=== PATIENT | female | born 1950 | race Caucasian/White ===

== ENCOUNTER 2018-01-21 10:06 | Outpatient (CLI) | payer MEDICARE, OTHER, SELFPAY ==
[2018-01-21] VITALS (8 sets, daily range): BP systolic 135–167; BP diastolic 65–89; PULSE 73–94; RESP 14–18; TEMP 36.2; O2SAT 98–100
--- NOTE | 2018-01-21 10:08 | DI.RAD.S_ITS ---
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 Appropriate location(s) of the needle tip(s) was confirmed by injection of iodinated contrast. IMPRESSION: Documentation of needle injection at the L5-S1 level. Dictated by: Sergio Key M.D. on 01/21/2018 at 16:02 Approved by: Sergio Key M.D. on 01/21/2018 at 16:03
--- NOTE | 2018-01-21 11:07 | P.PCN_ITS ---
Procedures Date/Time Date of procedure: 01/21/18 Time of procedure: 11:50 General Procedure description: PREOP DIAGNOSIS 1. FORMAINAL STENOSIS WITH LE SYMPTOMS POST OP DIAGNOSIS 1. FORMAINAL STENOSIS WITH LE SYMPTOMS PROCEDURES 1. FLUOROSCOPICALLY GUIDED CONTRAST CONTROLLED TRANSFORAMINAL EPIDURAL STEROID INJECTION - Left L5/S1 PHYSICIAN: Collin Parmar DO INDICATIONS: Hayde is referred by Dr. Bishop for treatment of Foraminal Stenosis with Right LE Symptoms FINDINGS Foraminal Nerve Root Compression secondary to disc disease and facet hypertrophy DESCRIPTION OF PROCEDURE: Following denial of allergy and review of potential side effects and complications, including, but not necessarily limited to, infection, allergic reaction, local tissue breakdown, stroke, temporary or permanent nerve injury, paralysis, and possible , the patient indicated that the patient understood and agreed to proceed. An informed consent document was signed by the patient, witnessed by a nurse, and placed in the patient's chart. Additionally, other treatment options including medications, modalities, and physical therapy were reviewed with the patient. Per the patient request, IV conscious sedation was administered via 3mg of Versed to patient comfort. The patient's vital signs were monitored throughout the procedure by both the nurse and the physician without significant fluctuation. The patient remained conversant throughout the procedure. In the prone position following sterile prep and drape of the lumbar region, the Left L5/S1 posterior neuroforamen was identified fluoroscopically. The skin was anesthetized via a 25-gauge 1.5-inch needle with 1% lidocaine solution. At this point, a 25-gauge 3.5-inch spinal needle was atraumatically introduced and advanced under fluoroscopic guidance through the posterior Left L5/S1 neuroforamen to approximately the anterior aspect of the canal. Depth was confirmed on lateral view. Following negative aspiration, injection of approximately 1.5 cc of Isovue 200 under live fluoroscopy in the AP view confirmed excellent flow along the nerve root, into the epidural space without vascular or intrathecal uptake observed Radiological data, including multiple fluoroscopic views of the lumbosacral spine, reveal a spinal needle at the Left L5/S1 posterior neuroforamen. Subsequent views show flow of contrast material flowing superiorly and inferiorly along the nerve root confirming epidural flow. Subsequently, a test dose of 1.5 cc of 1% lidocaine solution was administered and patient was observed for two minutes for signs or symptoms of complications , including abdominal pain, shortness of breath, bilateral upper or lower extremity weakness, nausea and vomiting, prior to steroid injection. At this point, a total of 3 cc or 20 mg of dexamethasone and 80mg Depo Medrol was injected without incident. The patient was then transferred to the recovery area where they were observed for an appropriate time after the injection. The patient reported a VAS score of 7 prior to the procedure and a post-procedure VAS of 0. Total Fluoroscopy Time: 20.9 seconds Total Conscious Sedation Time: 24min POST OP INSTRUCTIONS The patient was provided a Pain Log to continue to record their response to the target-specific procedure prior to follow-up visit with their referring physician. Additionally, specific post-injection care instructions and a contact number to our office were provided if concerns arise regarding possible complications associated with the procedure are suspected. Collin Parmar DO Complications: none
[2018-01-21] MEDS: IOPAMIDOL 15 ML VIAL 3 ML INJ (11:45)
[2018-01-21] MEDS: methylPREDNISolone acetate 80 MG/ML VIAL INJ (11:45)
[2018-01-21] MEDS: BUPIVACAINE 0.5% (PF) 30 ML VIAL INJ (11:45)
[2018-01-21] MEDS: MIDAZOLAM 5 MG/5 ML VIAL IV (11:45)
[2018-01-21] MEDS: DEXAMETHASONE 10 MG/ML VIAL 20 MG INJ (11:45)
== END 2018-01-21 12:00 ==
LOC: RAD 10:08
PROVIDERS: PCP Family Medicine; Visit Provider Physical Medicine & Rehabilitation
DX: M54.16 Radiculopathy, lumbar region (principal); M48.07 Spinal stenosis, lumbosacral region; M99.73 Connective tissue and disc stenosis of intervertebral foramina of lumbar region
CPT/HCPCS: 64483; 99152; J1040; J1100; J2250

== ENCOUNTER 2018-05-27 07:56 | Outpatient (CLI) | payer MEDICARE, OTHER, SELFPAY ==
[2018-05-27] VITALS (9 sets, daily range): BP systolic 131–158; BP diastolic 56–75; PULSE 68–77; RESP 14–20; TEMP 36.1; O2SAT 97–100
--- NOTE | 2018-05-27 08:29 | DI.RAD.S_ITS ---
PROCEDURE: PAIN L INTERLAMINAR/CAUDAL INJ INDICATIONS: SPINAL STENOSIS FINDINGS: Fluoroscopic spot filming was performed to verify placement of spinal needles at the interlaminar L2-L3 level(s), as labeled on the films. Appropriate location(s) of the needle tip(s) was confirmed by injection of iodinated contrast. IMPRESSION: Successful interlaminar needle tip localization for epidural steroid injection, left interlaminar margin. Dictated by: Pop Duval M.D. on 05/27/2018 at 15:36 Approved by: Pop Duval M.D. on 05/27/2018 at 15:37
[2018-05-27] MEDS: MIDAZOLAM 5 MG/5 ML VIAL IV (09:28)
[2018-05-27] MEDS: BUPIVACAINE 0.25% (PF) VIAL 2 ML INJ (09:34)
[2018-05-27] MEDS: methylPREDNISolone acetate 80 MG/ML VIAL INJ (09:34)
[2018-05-27] MEDS: DEXAMETHASONE 10 MG/ML VIAL 20 MG INJ (09:34)
[2018-05-27] MEDS: IOPAMIDOL 15 ML VIAL 3 ML INJ (09:34)
--- NOTE | 2018-05-27 09:40 | P.PCN_ITS ---
Procedures Date/Time Date of procedure: 05/27/18 Time of procedure: 09:39 General Procedure description: POST OP DIAGNOSIS 1. HNP WITH RADICULAR FEATURES, 2. MULTILEVEL CENTRAL STENOSIS, PROCEDURES 1. FLUORSCOPICALLY GUIDED CONTRAST CONTROLLED INTERLAMINAR EPIDURAL STEROID INJECTION - L2/3 PHYSICIAN: Collin Parmar, INDICATIONS Hayde is referred by Dr. Bishop for treatment of Bilateral Foraminal Stenosis L>R LE symptoms. FINDINGS Multilevel Central Spinal Stenosis with Nerve Root Compression DESCRIPTION OF PROCEDURE Fluoroscopically guided, contrast-controlled L2/3 translaminar epidural steroid injection. Following denial of allergy and review of potential side effects and complications, including, but not necessarily limited to, infection, allergic reaction, local tissue breakdown, temporary as well as permanent nerve injury, paralysis, stroke and possible , the patient indicated that the patient understood and agreed to proceed. An informed consent document was signed by the patient, witnessed by a nurse, and placed in the patient's chart. Additionally, other treatment options including modalities, medications, and physical therapy were reviewed with the patient. After review of previous anaesthesic history and IV conscious sedation the patient was deemed safe to proceed with todays procedure with IV conscious sedation as ASA class II designation. Safety time-out was performed to confirm patient ID, procedure to be performed and site of procedure. IV sedation was accomplished with a combination of 2mg of Versed was administered by the RN after DO order, titrated to patient comfort during the course of the procedure while the patient remained responsive to all verbal commands. In the prone position, following sterile prep and drape of the lumbar region, the L2/3 translaminar space was identified fluoroscopically. The skin was anesthetized via a 25-gauge, 1.5-inch needle with 1% lidocaine solution. At this point, a 22-gauge short bevel spinal needle was atraumatically introduced and advanced under fluoroscopic guidance into the region of the L2/3 translaminar space. Depth was confirmed on lateral view. Radiological data, including multiple fluoroscopic views of the lumbar spine, reveal a spinal needle at the L2/3 translaminar space. Lateral views then show placement of the needle in the epidural space. Subsequent views show contrast material flowing superiorly and inferiorly in the epidural space. No vascular or intrathecal uptake is observed. At this point, using loss of resistance technique with saline and air, the epidural space was entered. This was confirmed following negative aspiration with injection of approximately 1.5 cc of Isovue 200, showing excellent epidural flow without vascular or intrathecal uptake. At this point, 1 cc of 1 % lidocaine solution combined with 3 cc or 20 mg of dexamethasone and 80mg Depo medrol was injected without incident. The patient tolerated the procedure well without signs or symptoms of complications prior to transfer to the recovery area continued monitoring without incident. The patient was then transferred to the recovery area where they were observed for an appropriate period of time after the injection. The patient reported a VAS score of 6 prior to the procedure and a post-procedure VAS of 0. Total Fluoroscopy Time: 11.8 seconds Total Conscious Sedation Time: 24min POST OP INSTRUCTIONS The patient was provided a Pain Log to continue to record their response to the target-specific procedure prior to follow-up visit with their referring physician. Additionally, specific post-injection care instructions and a contact number to our office were provided if concerns arise regarding possible complications associated with the procedure are suspected. Collin Parmar DO Complications: none
== END 2018-05-27 10:24 ==
LOC: RAD 07:58
PROVIDERS: PCP Family Medicine; Visit Provider Physical Medicine & Rehabilitation
DX: M48.062 Spinal stenosis, lumbar region with neurogenic claudication (principal); M51.16 Intervertebral disc disorders with radiculopathy, lumbar region
CPT/HCPCS: 62323; 99152; J1040; J1100; J2250

== ENCOUNTER 2018-09-30 08:02 | Outpatient (CLI) | payer MEDICARE, OTHER, SELFPAY ==
[2018-09-30] VITALS (9 sets, daily range): BP systolic 130–163; BP diastolic 77–94; PULSE 74–83; RESP 16; TEMP 36.6; O2SAT 97–100
--- NOTE | 2018-09-30 08:04 | DI.RAD.S_ITS ---
PROCEDURE: PAIN L INTERLAMINAR/CAUDAL INJ INDICATIONS: SPINAL STENOSIS FINDINGS: Fluoroscopic spot filming was performed to verify placement of spinal needles at the L2-3 interlaminar level(s), as labeled on the films. Appropriate location(s) of the needle tip(s) was confirmed by injection of iodinated contrast. IMPRESSION: Successful L2-3 interlaminar needle tip localization for midline dorsal epidural steroid injection. Dictated by: Pop Duval M.D. on 09/30/2018 at 10:56 Approved by: Pop Duval M.D. on 09/30/2018 at 10:56
[2018-09-30] MEDS: MIDAZOLAM 5 MG/5 ML VIAL IV (09:13)
[2018-09-30] MEDS: BUPIVACAINE 0.25% (PF) VIAL 2 ML INJ (09:18)
[2018-09-30] MEDS: IOPAMIDOL 15 ML VIAL 3 ML INJ (09:19)
[2018-09-30] MEDS: DEXAMETHASONE 10 MG/ML VIAL 20 MG INJ (09:19)
[2018-09-30] MEDS: methylPREDNISolone acetate 80 MG/ML VIAL INJ (09:19)
--- NOTE | 2018-09-30 09:21 | PC.NURSE ---
assisting pt off table and transporting pt to post proc area in stable cond
--- NOTE | 2018-09-30 09:25 | PM.PROC.1 ---
Procedures Date/Time Date of procedure: 09/30/18 Time of procedure: 09:25 General Procedure description: POST OP DIAGNOSIS 1. HNP WITH RADICULAR FEATURES, 2. MULTILEVEL CENTRAL STENOSIS, PROCEDURES 1. FLUORSCOPICALLY GUIDED CONTRAST CONTROLLED INTERLAMINAR EPIDURAL STEROID INJECTION - L2/3 PHYSICIAN: Collin Parmar, INDICATIONS Hayde is referred by for treatment of Bilateral Foraminal Stenosis L>R LE symptoms. FINDINGS Multilevel Central Spinal Stenosis with Nerve Root Compression DESCRIPTION OF PROCEDURE Fluoroscopically guided, contrast-controlled L2/3 translaminar epidural steroid injection. Following denial of allergy and review of potential side effects and complications, including, but not necessarily limited to, infection, allergic reaction, local tissue breakdown, temporary as well as permanent nerve injury, paralysis, stroke and possible , the patient indicated that the patient understood and agreed to proceed. An informed consent document was signed by the patient, witnessed by a nurse, and placed in the patient's chart. Additionally, other treatment options including modalities, medications, and physical therapy were reviewed with the patient. After review of previous anaesthesic history and IV conscious sedation the patient was deemed safe to proceed with todays procedure with IV conscious sedation as ASA class II designation. Safety time-out was performed to confirm patient ID, procedure to be performed and site of procedure. IV sedation was accomplished with a combination of 3mg of Versed was administered by the RN after DO order, titrated to patient comfort during the course of the procedure while the patient remained responsive to all verbal commands. In the prone position, following sterile prep and drape of the lumbar region,the L2/3 translaminar space was identified fluoroscopically. The skin was anesthetized via a 25-gauge, 1.5-inch needle with 1% lidocaine solution. At this point, a 22-gauge short bevel spinal needle was atraumatically introduced and advanced under fluoroscopic guidance into the region of the L2/3 translaminar space. Depth was confirmed on lateral view. Radiological data, including multiple fluoroscopic views of the lumbar spine, reveal a spinal needle at the L2/3 translaminar space. Lateral views then show placement of the needle in the epidural space. Subsequent views show contrast material flowing superiorly and inferiorly in the epidural space. No vascular or intrathecal uptake is observed. At this point, using loss of resistance technique with saline and air, the epidural space was entered. This was confirmed following negative aspiration with injection of approximately 1.5 cc of Isovue 200, showing excellent epidural flow without vascular or intrathecal uptake. At this point, 1 cc of 1% lidocaine solution combined with 3 cc or 20 mg of dexamethasone and 80mg Depo medrol was injected without incident. The patient tolerated the procedure well without signs or symptoms of complications prior to transfer to the recovery area continued monitoring without incident. The patient was then transferred to the recovery area where they were observed for an appropriate period of time after the injection. The patient reported a VAS score of 6 prior to the procedure and a post-procedure VAS of 0. Total Fluoroscopy Time: 11.8 seconds Total Conscious Sedation Time: 24min POST OP INSTRUCTIONS The patient was provided a Pain Log to continue to record their response to the target-specific procedure prior to follow-up visit with their referring physician. Additionally, specific post-injection care instructions and a contact number to our office were provided if concerns arise regarding possible complications associated with the procedure are suspected. Collin Parmar DO Complications: none
--- NOTE | 2018-09-30 09:43 | PC.NURSE ---
pt tolerating drinking water, and coffee.
== END 2018-09-30 10:23 | disposition home or self-care (01) ==
LOC: RAD 08:03
PROVIDERS: PCP Family Medicine; Visit Provider Physical Medicine & Rehabilitation
DX: M51.16 Intervertebral disc disorders with radiculopathy, lumbar region (principal); M48.061 Spinal stenosis, lumbar region without neurogenic claudication
CPT/HCPCS: 62323; 99152; J1040; J1100; J2250

== ENCOUNTER → 2018-10-16 11:45 | Outpatient (CLI) | payer MEDICARE, OTHER, SELFPAY ==
--- NOTE | 2018-10-16 11:49 | DI.RAD.S_ITS ---
PROCEDURE: XR KNEE RT 3V INDICATIONS: Right knee DJD TECHNIQUE: 3 views of the knee were acquired. COMPARISON: None. FINDINGS: Bones: No fractures or dislocations. No suspicious bony lesions. There is moderate medial patellofemoral compartment narrowing. Periarticular osteophytes are present without visualized erosions. Soft tissues: Moderate joint effusion. No suspicious soft tissue calcifications. IMPRESSION: Medial and patellofemoral narrowing most consistent with degenerative osteoarthritic change. Dictated by: Kymberly Aguilera M.D. on 10/16/2018 at 15:10 Approved by: Kymberly Aguilera M.D. on 10/16/2018 at 15:11
== END ==
PROVIDERS: PCP Family Medicine; Visit Provider Physical Medicine & Rehabilitation
DX: M17.11 Unilateral primary osteoarthritis, right knee (principal); M12.812 Other specific arthropathies, not elsewhere classified, left shoulder; M54.17 Radiculopathy, lumbosacral region; M48.062 Spinal stenosis, lumbar region with neurogenic claudication
CPT/HCPCS: 20611; 73562; 99214; J0702

== ENCOUNTER 2018-12-01 10:30 | Emergency (ER) | payer MEDICARE, OTHER, SELFPAY ==
[2018-12-01] VITALS (8 sets, daily range): BP systolic 128–180; BP diastolic 45–90; PULSE 83–94; RESP 16–26; TEMP 36.5; O2SAT 97–100; BMI 30.4
--- NOTE | 2018-12-01 10:46 | DI.RAD.S_ITS ---
PROCEDURE: XR CHEST 1V INDICATIONS: chest pain TECHNIQUE: One view of the chest was acquired. COMPARISON: [facility], , CHEST 1 VIEW, 10/19/2017, 8:44. FINDINGS: Surgical changes and devices: None. Lungs and pleura: Lungs are clear. No pleural effusions or pneumothorax. The aeration of the lungs is similar to the prior study. Mediastinum: Mediastinal contours appear normal. Heart size is enlarged. There is aortic atherosclerosis. Bones and chest wall: No suspicious bony lesions. Overlying soft tissues appear unremarkable. IMPRESSION: Cardiomegaly without overt heart failure or definite pneumonia. Dictated by: Miguel Jones M.D. on 12/01/2018 at 10:37 Approved by: Miguel Jones M.D. on 12/01/2018 at 10:39
[2018-12-01 10:51] LABS: Add Manual Diff / Slide Review NO; Basophils Absolute Auto 100 /uL (0-100); Eosinophils Absolute Auto 300 /uL (0-450); Eosinophils Percent Auto 2.4 % (2-4); Hematocrit 37.7 % (36-46); Lymphocytes Absolute Auto 3800 /uL (1100-4500); Lymphocytes Percent Auto 28.2 % (25-40); Mean Corpuscular HGB Conc 34.6 % (30-36); Mean Corpuscular Volume 86.9 fL (80-100); Monocytes Absolute Auto 700 /uL (0-900); Monocytes Percent Auto 5.1 % (3-14); Neutrophils Absolute Auto 8500 /uL (1500-7000); Neutrophils Percent Auto 63.3 % (50-75); Platelet Count 315 X10^3/uL (150-400); Red Blood Cell Count 4.34 X10^6/uL (4.0-5.2); Red Cell Distribution Width 13.2 % (11.6-14.8); White Blood Cell Count 13.5 X10^3/uL (4.5-11.0)
[2018-12-01 11:00] LABS: Prothrombin Time 11.5 SECONDS (10.1-12.7)
[2018-12-01 11:03] LABS: PTT Partial Thromboplastin Tim 27 SECONDS (26.4-36.2)
[2018-12-01 11:09] LABS: Alanine Aminotransferase 21 IU/L (9-52); Albumin 4.1 g/dL (3.5-5.0); Albumin Globulin Ratio 1.3 (1.0-2.8); Alkaline Phosphatase 84 U/L (38-126); Aspartate Aminotransferase 16 IU/L (14-36); BUN Creatinine Ratio 24.4 (6-22); Bilirubin Total 0.5 mg/dL (0.2-1.3); Blood Urea Nitrogen 22 mg/dL (7-17); Calcium 9.9 mg/dL (8.4-10.2); Carbon Dioxide 31 mmol/L (22-32); Chloride 99 mmol/L (98-107); Creatine Kinase 33 U/L (30-135); Estimated Glomerular Filt Rate > 60.0 mL/min (>60); Globulin 3.2 g/dL (1.7-4.1); Glucose 108 mg/dL (80-110); HEMOLYSIS < 15 (0-50); Lipase 87 U/L (23-300); Potassium 4.3 mmol/L (3.4-5.1); Sodium 139 mmol/L (137-145); Total Protein 7.3 g/dL (6.3-8.2)
[2018-12-01 11:21] LABS: Troponin I < 0.012 ng/mL (0.01-0.034)
--- NOTE | 2018-12-01 11:25 | PC.NURSE ---
Addendum entered by Poonam Shah R.N. 12/01/18 11:49: Patient jaw and shoulder pain getting worse. Provider notified. No new orders. Original Note: Patient had brief episode of rapid atrial flutter, rate of 165 bpm. Denies symptoms at the time of this episode. States has had flutter in the past.
--- NOTE | 2018-12-01 11:41 | ED.CHESTPAIN ---
HPI - Chest Pain General Chief Complaint: Chest Pain Stated Complaint: CHEST PAIN Time Seen by Provider: 12/01/18 10:46 Source: patient Mode of arrival: ambulatory Limitations: no limitations History of Present Illness HPI narrative: Patient is a 67-year-old female here for evaluation of chest pressure. She states that started approximately 1000 hours this morning. Was a fairly sudden onset but has been consistent since then. She states she feels like she cannot take a big deep breath. Has recently completed a course of antibiotics given to her by her primary doctor for bronchitis. She also states that her ?asthma? has been picking up. She did do a nebulizer this morning before the chest discomfort started. No prior cardiac issues. Does have a history of high blood pressure. Related Data Home Medications Medication Instructions Recorded Confirmed potassium 1 dose PO DAILY 02/05/18 12/01/18 magnesium 30 mg tablet 30 mg PO DAILY 04/24/18 12/01/18 omega-3 fatty acids 1,000 mg 1,000 mg PO DAILY 04/24/18 12/01/18 capsule ascorbic acid (vitamin C) 500 mg 500 mg PO DAILY cap 06/11/18 12/01/18 capsule cholecalciferol (vitamin D3) 1,000 1,000 unit PO DAILY 06/11/18 12/01/18 unit capsule CoQ-10 1 cap PO DAILY 12/01/18 12/01/18 albuterol sulfate 3 ml INHALATION PRN PRN 12/01/18 12/01/18 albuterol sulfate [ProAir HFA] 2 puff INHALATION Q4H PRN 12/01/18 12/01/18 azithromycin 250 mg PO DAILYX4 12/01/18 12/01/18 cyclosporine [Restasis] 1 drp OPHTHALMIC (EYE) BID 12/01/18 12/01/18 fluticasone propionate [Flovent 2 puff INHALATION Q12H 12/01/18 12/01/18 HFA] triamterene-hydrochlorothiazid 1 tab PO DAILY 12/01/18 12/01/18 Previous Rx's Medication Instructions Recorded meloxicam 15 mg tablet 15 mg PO DAILY #90 tab 09/11/18 codeine-guaifenesin [Guaifenesin 10 ml PO Q4-6H PRN #120 ml 12/01/18 AC] Allergies Allergy/AdvReac Type Severity Reaction Status Date / Time chocolate flavor Allergy Intermediate INCREASED Verified 10/16/18 11:05 [CHOCOLATE FLAVOR] HR, HEADACHE Penicillins [PENICILLINS] Allergy Intermediate HIVES Verified 10/16/18 11:05 oxycodone [OXYCODONE] AdvReac Intermediate N/V, Verified 10/16/18 11:05 HEADACHE Review of Systems Constitutional Denies fever(s) Cardiovascular Reports chest pain, Denies rapid heart rate, Denies edema, Denies palpitations, Reports dyspnea and Denies dyspnea on exertion Respiratory Reports dyspnea, Denies dyspnea on exertion and Denies wheezing Gastrointestinal Gastrointestinal: Denies abdominal pain, Denies nausea and Denies vomiting Genitourinary Denies dysuria Musculoskeletal Denies myalgias and Denies arthralgias Integumentary/Breasts Denies rash Endocrine Denies palpitations Hematologic/Lymphatic Denies easy bleeding and Denies easy bruising Allergic/Immunologic Denies urticaria and Denies wheezing [facility] Medical History Asthma (Acute) Social History Smoking Status: Never smoker Social History Smoking Status: Never smoker Exam Initial Vital Signs Initial Vital Signs: Vital Signs Temperature 97.7 F 12/01/18 10:46 Pulse Rate 90 12/01/18 10:46 Respiratory Rate 22 12/01/18 10:46 Blood Pressure 180/88 H 12/01/18 10:46 Pulse Oximetry 100 12/01/18 10:46 Const General: cooperative, well developed, well groomed and No acute distress Orientation: alert, awake and oriented x3 HENMN Head: normal to inspection and normocephalic Resp Effort & Inspection: normal respiratory effort Auscultation: clear to auscultation bilaterally Cardio Rate: regular rate Rhythm: regular rhythm Pulses: radial pulses present GI Inspection: non-distended Palpation: soft, No firm and No tender Skin Lesions: no lesions Rashes: no rashes Neuro General: alert, awake and oriented x3 Cognition: normal cognition Speech: speech normal Extrem General: normal to inspection, capillary refill normal and No edema Psych Appearance: grossly normal and well kempt Scores HEART Score Heart Score history: Moderately Suspicious Heart Score EKG: Normal Heart Score Age: > or = 65 years old Heart Score risk factors: 1-2 risk factors Heart Score troponin: < or = to normal limit Heart Score Total: 4 PERC Score Age greater than or equal to 50 years: Yes Heart rate greater than or equal to 100 bpm: No Room Air O2 Sat less than 95%: No Unilateral leg swelling: No Recent trauma or surgery: No Hemoptysis: No Prior PE or DVT: No Hormone Use: No Total PERC Score: 1 Course Orders Ordered: ED Orders 12/01/18 10:44 EKG-12 Lead Stat 12/01/18 10:46 XR chest 1V Stat 12/01/18 10:47 Complete Blood Count AUTO DIFF Stat Comprehensive Metabolic Panel Stat Lipase Stat Partial Thromboplastin Time Stat Prothrombin Time INR Stat Troponin & CK Cardiac Panel Stat 12/01/18 11:50 B Type Natriuretic Peptide Stat D Dimer Stat 12/01/18 12:37 CT angio chest PE protocol Stat 12/01/18 13:45 Troponin I Stat Discontinued Medications Albuterol/Ipratropium (Duoneb) 3 ml INH NOW ONE Stop: 12/01/18 11:41 Last Admin: 12/01/18 11:50 Dose: 3 ml Aspirin (Aspirin Chew) 324 mg PO NOW ONE Stop: 12/01/18 11:52 Last Admin: 12/01/18 12:02 Dose: 243 mg Sodium Chloride (Normal Saline 0.9%) 1,000 mls @ 1,000 mls/hr IV BOLUS ONE Stop: 12/01/18 13:35 Last Infusion: 12/01/18 15:18 Dose: 0 mls/hr Admin: 12/01/18 12:50 Dose: 1,000 mls/hr Nitroglycerin (Nitrostat) 0.4 mg SL [id number] PRN PRN Reason: Chest Pain Last Admin: 12/01/18 12:03 Dose: 0.4 mg Vital Signs - 8 hr 12/01/18 10:46 12/01/18 11:00 12/01/18 11:30 Temperature 97.7 F Pulse Rate 90 91 H 92 H Respiratory Rate 22 18 26 H Blood Pressure 180/88 H Blood Pressure [Left Arm] 152/90 H 139/66 Pulse Oximetry 100 97 98 12/01/18 11:50 12/01/18 12:03 12/01/18 13:00 Temperature Pulse Rate 94 H 91 H 93 H Respiratory Rate 24 25 H Blood Pressure 132/45 L Blood Pressure [Left Arm] 137/65 Pulse Oximetry 100 99 12/01/18 13:30 12/01/18 14:15 Temperature Pulse Rate 83 84 Respiratory Rate 22 16 Blood Pressure Blood Pressure [Left Arm] 128/69 146/75 H Pulse Oximetry 98 100 MDM - Chest Pain Lab Data Attestation: I reviewed the patient's lab results. Result diagrams: 12/01/18 10:47 12/01/18 10:47 Lab Results 12/01/18 12/01/18 12/01/18 Range/Units 10:47 10:47 10:47 WBC 13.5 H (4.5-11.0) X10^3/uL RBC 4.34 (4.0-5.2) X10^6/uL Hgb 13.0 (12.0-16.0) g/dL Hct 37.7 (36-46) % MCV 86.9 (80-100) fL MCH 30.0 (26-34) PG MCHC 34.6 (30-36) % RDW 13.2 (11.6-14.8) % Plt Count 315 (150-400) X10^3/uL Neut % (Auto) 63.3 (50-75) % Lymph % (Auto) 28.2 (25-40) % Saline % (Auto) 5.1 (3-14) % Eos % (Auto) 2.4 (2-4) % Baso % (Auto) 1.0 (0-2) % Neut # (Auto) 8500 H (8514-5314) /uL Lymph # (Auto) 3800 (5799-6571) /uL Saline # (Auto) 700 (0-900) /uL Eos # (Auto) 300 (0-450) /uL Baso # (Auto) 100 (0-100) /uL PT 11.5 (10.1-12.7) SECONDS INR 1.0 (0.9-1.3) APTT 27 (26.4-36.2) SECONDS D-Dimer (<230) ng/mL Sodium 139 (137-145) mmol/L Potassium 4.3 (3.4-5.1) mmol/L Chloride 99 (98-107) mmol/L Carbon Dioxide 31 (22-32) mmol/L BUN 22 H (7-17) mg/dL Creatinine 0.90 (0.52-1.04) mg/dL Estimated GFR > 60.0 (>60) mL/min BUN/Creatinine Ratio 24.4 H (6-22) Glucose 108 (80-110) mg/dL Calcium 9.9 (8.4-10.2) mg/dL Total Bilirubin 0.5 (0.2-1.3) mg/dL AST 16 (14-36) IU/L ALT 21 (9-52) IU/L Alkaline Phosphatase 84 (38-126) U/L Total Creatine Kinase 33 (30-135) U/L CK-MB (CK-2) TNP CK-MB (CK-2) Rel Index TNP Troponin I < 0.012 (0.01-0.034) ng/mL B-Natriuretic Peptide (<100) Total Protein 7.3 (6.3-8.2) g/dL Albumin 4.1 (3.5-5.0) g/dL Globulin 3.2 (1.7-4.1) g/dL Albumin/Globulin Ratio 1.3 (1.0-2.8) Lipase 87 (23-300) U/L 12/01/18 12/01/18 12/01/18 Range/Units 11:50 11:50 13:45 WBC (4.5-11.0) X10^3/uL RBC (4.0-5.2) X10^6/uL Hgb (12.0-16.0) g/dL Hct (36-46) % MCV (80-100) fL MCH (26-34) PG MCHC (30-36) % RDW (11.6-14.8) % Plt Count (150-400) X10^3/uL Neut % (Auto) (50-75) % Lymph % (Auto) (25-40) % Saline % (Auto) (3-14) % Eos % (Auto) (2-4) % Baso % (Auto) (0-2) % Neut # (Auto) (5329-3320) /uL Lymph # (Auto) (5860-2120) /uL Saline # (Auto) (0-900) /uL Eos # (Auto) (0-450) /uL Baso # (Auto) (0-100) /uL PT (10.1-12.7) SECONDS INR (0.9-1.3) APTT (26.4-36.2) SECONDS D-Dimer 647 H (<230) ng/mL Sodium (137-145) mmol/L Potassium (3.4-5.1) mmol/L Chloride (98-107) mmol/L Carbon Dioxide (22-32) mmol/L BUN (7-17) mg/dL Creatinine (0.52-1.04) mg/dL Estimated GFR (>60) mL/min BUN/Creatinine Ratio (6-22) Glucose (80-110) mg/dL Calcium (8.4-10.2) mg/dL Total Bilirubin (0.2-1.3) mg/dL AST (14-36) IU/L ALT (9-52) IU/L Alkaline Phosphatase (38-126) U/L Total Creatine Kinase (30-135) U/L CK-MB (CK-2) CK-MB (CK-2) Rel Index Troponin I < 0.012 (0.01-0.034) ng/mL B-Natriuretic Peptide 136 H (<100) Total Protein (6.3-8.2) g/dL Albumin (3.5-5.0) g/dL Globulin (1.7-4.1) g/dL Albumin/Globulin Ratio (1.0-2.8) Lipase (23-300) U/L Imaging Data Chest x-ray: Radiologist's impression: [address] [address] XRay Report Signed Patient: Hayde Mensah LMR#: [id number] : 9Acct:[id number] Age/Sex: 67 / FDate of Service: 12/01/18 Loc: ED Accession Number: [id number] Procedure: XR chest 1V Ordering Provider: Aurelio Perry D.O. PROCEDURE: XR CHEST 1V INDICATIONS: chest pain TECHNIQUE: One view of the chest was acquired. COMPARISON: [facility], CHEST 1 VIEW, 10/19/2017, 8:44. FINDINGS: Surgical changes and devices: None. Lungs and pleura: Lungs are clear. No pleural effusions or pneumothorax. The aeration of the lungs is similar to the prior study. Mediastinum: Mediastinal contours appear normal. Heart size is enlarged. There is aortic atherosclerosis. Bones and chest wall: No suspicious bony lesions. Overlying soft tissues appear unremarkable. IMPRESSION: Cardiomegaly without overt heart failure or definite pneumonia. Dictated by: Miguel Jones M.D. on 12/01/2018 at 10:37 Approved by: Miguel Jones M.D. on 12/01/2018 at 10:39 CT scan - chest: Radiologist's impression: [place] [address] CT Scan Report Signed Patient: Hayde Mensah LMR#: [id number] : 9Acct:[id number] Age/Sex: 67 / FDate of Service: 12/01/18 Loc: ED Accession Number: [id number] Procedure: CT angio chest PE protocol Ordering Provider: Aurelio Perry D.O. PROCEDURE: CT ANGIO CHEST PE PROTOCOL INDICATIONS: Chest pain, shortness of breath, tachycardia TECHNIQUE: After the administration of intravenous contrast, 2 mm thick sections acquired from the pulmonary apices to the posterior costophrenic angles. 3-dimensional maximum intensity projection (MIP) coronal and sagittal reformats were then acquired through the thorax. For radiation dose reduction, the following was used: automated exposure control, adjustment of mA and/or kV according to patient size. COMPARISON: None. FINDINGS: Image quality: Excellent. Pulmonary arteries: Pulmonary arteries are normal in size, and demonstrate no intraluminal filling defects to suggest central pulmonary embolism. Lungs and pleura: Lungs are abnormal with a patchy alveolar infiltration pattern, involving the upper and lower lungs and with a nonspecific appearance but potentially a manifestation of atypical pneumonia.. No pleural effusions or pneumothorax. Central and peripheral airways are patent. Mediastinum: Heart size is normal, without pericardial effusion. No mediastinal or hilar adenopathy. Thoracic aorta is normal in caliber and enhancement. Esophagus is normal in caliber, without hiatal hernia. Bones and chest wall: No suspicious bony lesions. Ribs and thoracic spine appear intact throughout. Thyroid gland is not well-seen but appears normal where it can be visualized.. No axillary or supraclavicular adenopathy. Abdomen: Visualized upper abdominal solid organs appear normal in the early arterial phase of enhancement. IMPRESSION: Patchy generalized alveolar infiltration pattern within the lung parenchyma is most likely a manifestation of atypical pneumonia such as viral pneumonia. The appearance also could be produced by acute cardiogenic pulmonary edema, inhalation injury, or immune mediated pneumonitis. No pulmonary embolus seen. Dictated by: Pop Duval M.D. on 12/01/2018 at 13:05 ECG Data Attestation: I personally reviewed and interpreted this ECG as follows: Prior ECG tracings: not available for review Interpretation: Sinus rhythm Ventricular rate 87 Frequent PACs Normal axis Normal QRS No ST T wave changes MDM Narrative Medical decision making narrative: Patient's EKG was unremarkable. The troponin was negative x2. She does have a cough which does make her chest pain worse. She recently completed a course of antibiotics and also a course of steroids given to her by her primary doctor for treatment of ?bronchitis? she just finished the antibiotics yesterday. Has completed the steroids within the past couple days. There is no pulmonary embolism on the CT scan. CT scan is concerning for potential atypical pneumonia verses other potential infectious/inflammatory etiology. This does fit the case of the elevated white blood cell count and also the cough. We did have a long discussion regarding the CT scan findings. Informed her that radiologic studies very often lag behind any clinical condition. Informed her that since she just completed the antibiotics yesterday that the findings on the CT scan could very well be normal in this situation. We also discussed that it could be that the azithromycin that she was on did not treat her infection. After this discussion with the decision was made not to start on a new course of antibiotics but to give this a couple more days to see if her symptoms do not improve. Will also hold on steroids for now. She has a nebulizer at home. Given her symptoms, 2-troponins, EKG, I feel that ACS is unlikely in this scenario. Will send home with a prescription for cough suppression. I informed her to contact her primary doctor tomorrow for follow-up so that if her symptoms are not improving they could discuss potentially another antibiotic such as Levaquin. Patient was given return precautions. She expressed understanding and agreement with plan. Discharge Plan Departure Patient Disposition: Home Clinical Impression: Atypical chest pain, Cough Discharge Date/Time: 12/01/18 15:15 Interventions: ED Discharge Assessment Last Done: 12/01/18 15:15 Instructions: Cough (Alternative Therapy), Cough, DI for Atypical Chest Pain Activity Restrictions/Additional Instructions: I do recommend that you start on a decongestant such as Claritin or Mary or Zyrtec. You can buy these [id number]. Start taking the Robitussin with codeine as directed. Contact your primary doctor for a follow-up. Return to the emergency department for any new or worsening symptoms Prescriptions: New codeine-guaifenesin [Guaifenesin AC] 10-100 mg/5 mL liquid 10 ml PO Q4-6H PRN (Reason: cough) Qty: 120 RF: 0 No Action albuterol sulfate 2.5 mg /3 mL (0.083 %) solution for nebulization 3 ml Inhalation PRN PRN (Reason: Shortness Of Breath) RF: 0 azithromycin 250 mg tablet 250 mg PO DAILYX4 RF: 0 triamterene-hydrochlorothiazid 37.5-25 mg tablet 1 tab PO DAILY RF: 0 albuterol sulfate [ProAir HFA] 90 mcg/actuation HFA aerosol inhaler 2 puff Inhalation Q4H PRN (Reason: wheezing,cough, or congestion) RF: 0 Flovent HFA 110 mcg/actuation HFA aerosol inhaler 2 puff Inhalation Q12H RF: 0 Restasis 0.05 % dropperette 1 drp ophthalmic (eye) BID RF: 0 CoQ-10 1 cap PO DAILY RF: 0 magnesium 30 mg tablet 30 mg PO DAILY RF: 0 omega-3 fatty acids [Fish Oil Concentrate] 1,000 mg capsule 1,000 mg PO DAILY RF: 0 cholecalciferol (vitamin D3) 1,000 unit capsule 1,000 unit PO DAILY RF: 0 ascorbic acid (vitamin C) 500 mg capsule 500 mg PO DAILY RF: 0 meloxicam 15 mg tablet 15 mg PO DAILY Qty: 90 RF: 2 potassium 1 dose PO DAILY RF: 0 Referrals: Baljit Bishop MD [Primary Care Provider] -
[2018-12-01] MEDS: ALBUTEROL/IPRATROPIUM 3 ML AMPUL INH (11:50)
--- NOTE | 2018-12-01 11:55 | RT ---
Patient states to me that the pain in her jaw, neck and shoulder has come back and she also is having some pain on the right side of her chest. Notified RN.
[2018-12-01 12:00] LABS: D Dimer 647 ng/mL (<230)
[2018-12-01] MEDS: ASPIRIN 81 MG TAB 324 MG PO (12:02)
[2018-12-01] MEDS: NITROGLYCERIN 0.4 MG SL TAB SL (12:03)
[2018-12-01 12:17] LABS: B Type Natriuretic Peptide 136 (<100)
--- NOTE | 2018-12-01 12:37 | DI.CT.S_ITS ---
PROCEDURE: CT ANGIO CHEST PE PROTOCOL INDICATIONS: Chest pain, shortness of breath, tachycardia TECHNIQUE: After the administration of intravenous contrast, 2 mm thick sections acquired from the pulmonary apices to the posterior costophrenic angles. 3-dimensional maximum intensity projection (MIP) coronal and sagittal reformats were then acquired through the thorax. For radiation dose reduction, the following was used: automated exposure control, adjustment of mA and/or kV according to patient size. COMPARISON: None. FINDINGS: Image quality: Excellent. Pulmonary arteries: Pulmonary arteries are normal in size, and demonstrate no intraluminal filling defects to suggest central pulmonary embolism. Lungs and pleura: Lungs are abnormal with a patchy alveolar infiltration pattern, involving the upper and lower lungs and with a nonspecific appearance but potentially a manifestation of atypical pneumonia.. No pleural effusions or pneumothorax. Central and peripheral airways are patent. Mediastinum: Heart size is normal, without pericardial effusion. No mediastinal or hilar adenopathy. Thoracic aorta is normal in caliber and enhancement. Esophagus is normal in caliber, without hiatal hernia. Bones and chest wall: No suspicious bony lesions. Ribs and thoracic spine appear intact throughout. Thyroid gland is not well-seen but appears normal where it can be visualized.. No axillary or supraclavicular adenopathy. Abdomen: Visualized upper abdominal solid organs appear normal in the early arterial phase of enhancement. IMPRESSION: Patchy generalized alveolar infiltration pattern within the lung parenchyma is most likely a manifestation of atypical pneumonia such as viral pneumonia. The appearance also could be produced by acute cardiogenic pulmonary edema, inhalation injury, or immune mediated pneumonitis. No pulmonary embolus seen. Dictated by: Pop Duval M.D. on 12/01/2018 at 13:05 Approved by: Pop Duval M.D. on 12/01/2018 at 13:09
[2018-12-01] MEDS: SODIUM CHLORIDE 0.9% 1,000 ML 1000 ML IV (12:50)
[2018-12-01 14:28] LABS: Troponin I < 0.012 ng/mL (0.01-0.034)
== END 2018-12-01 15:15 | disposition home or self-care (01) ==
PROVIDERS: Emergency Provider Emergency Medicine; PCP Family Medicine
DX: R07.89 Other chest pain (principal); R05 Cough; R06.00 Dyspnea, unspecified
CPT/HCPCS: 36415; 36591; 71045; 71275; 80053; 82550; 83690; 83880; 84484; 85025; 85379; 85610; 85730; 93005; 93010; 94640; 96360; 96361; 99284; 99285

== ENCOUNTER 2019-01-03 07:48 | Emergency (ER) | payer MEDICARE, OTHER, SELFPAY ==
[2019-01-03 07:56] VITALS: BP 156/70; PULSE 89; RESP 19; TEMP 36.9; O2SAT 100; BMI 29.7
--- NOTE | 2019-01-03 08:04 | ED.SOB ---
HPI - SOB/Dyspnea General Chief Complaint: Shortness of Breath/Dyspnea Stated Complaint: Asthma,coughing,abd pain Time Seen by Provider: 01/03/19 08:04 Source: patient, family () and old records reviewed Mode of arrival: ambulatory Limitations: no limitations History of Present Illness This is a 68-year-old female comes to the emergency department with shortness of breath and a barky cough. Patient states that she started having the symptoms starting on Friday. She states that she has felt sort of achy all over, kind of chilled. She has had cough with chest congestion. She states it is productive but she spits it into a Kleenex and has not looked at it. She has had a barky cough. Patient states she has had some nasal congestion. She feels a little short of breath. She did do a breathing treatment at home when she was having persistent coughing that just would not stop. This was helpful but she continues to have some cough. Patient states she has also felt nauseated over the weekend. She has not vomited. She has had normal bowel movements but felt cramping in her abdomen. She has had normal urination without any frequency urgency or dysuria. She has felt like her ankles were a little bit more swollen in her shoes were more tight today. Of note she has recently had pneumonia and had 2 rounds of antibiotics and was improving but not resolved. She has also had a hoarse voice that is been going on for about 4 weeks which has also not improved. She was on prednisone she finished in November she is not sure of the exact date. And her albuterol treatment this morning was helpful. Patient states she has been told she has asthma although she states this is a more recent diagnosis in the last 2 years. She had similar issues with asthma attacks and difficulty with breathing last spring. She has had back surgery. Patient has never smoked. She occasionally has an alcoholic drink once or twice a month. Denies any illicit. Related Data Home Medications Medication Instructions Recorded Confirmed potassium 1 dose PO DAILY 02/05/18 12/01/18 magnesium 30 mg tablet 30 mg PO DAILY 04/24/18 12/01/18 omega-3 fatty acids 1,000 mg 1,000 mg PO DAILY 04/24/18 12/01/18 capsule ascorbic acid (vitamin C) 500 mg 500 mg PO DAILY cap 06/11/18 12/01/18 capsule cholecalciferol (vitamin D3) 1,000 1,000 unit PO DAILY 06/11/18 12/01/18 unit capsule CoQ-10 1 cap PO DAILY 12/01/18 12/01/18 albuterol sulfate 3 ml INHALATION PRN PRN 12/01/18 12/01/18 albuterol sulfate [ProAir HFA] 2 puff INHALATION Q4H PRN 12/01/18 12/01/18 azithromycin 250 mg PO DAILYX4 12/01/18 12/01/18 cyclosporine [Restasis] 1 drp OPHTHALMIC (EYE) BID 12/01/18 12/01/18 fluticasone propionate [Flovent 2 puff INHALATION Q12H 12/01/18 12/01/18 HFA] triamterene-hydrochlorothiazid 1 tab PO DAILY 12/01/18 12/01/18 Previous Rx's Medication Instructions Recorded meloxicam 15 mg tablet 15 mg PO DAILY #90 tab 09/11/18 codeine-guaifenesin [Guaifenesin 10 ml PO Q4-6H PRN #120 ml 12/01/18 AC] fluticasone propion-salmeterol 1 inhalation INHALATION BID #60 01/03/19 [Advair Diskus] each prednisone 50 mg PO DAILY #5 tab 01/03/19 Allergies Allergy/AdvReac Type Severity Reaction Status Date / Time chocolate flavor Allergy Intermediate INCREASED Verified 01/03/19 07:56 [CHOCOLATE FLAVOR] HR, HEADACHE Penicillins [PENICILLINS] Allergy Intermediate HIVES Verified 01/03/19 07:56 oxycodone [OXYCODONE] AdvReac Intermediate N/V, Verified 01/03/19 07:56 HEADACHE Review of Systems Review of Systems ROS Unobtainable: All systems reviewed & are unremarkable except as noted in HPI and below Constitutional Reports body ache(s), Reports chills, Denies fever(s), Denies headache(s), Denies lethargy, Denies night sweats and Denies weakness ENT Ears, Nose, Mouth, and Throat: Denies headache(s), Reports hoarseness, Reports nasal congestion, Reports sinus pressure, Denies sore throat and Denies throat swelling Cardiovascular Denies chest pain, Denies chest pain at rest, Denies syncope, Reports pedal edema, Denies lightheadedness, Reports dyspnea, Reports dyspnea on exertion and Denies orthopnea Respiratory Reports chest congestion, Reports cough (barky cough), Reports excessive phlegm production, Denies pain on inspiration, Denies pain with cough, Reports dyspnea, Reports dyspnea on exertion and Reports wheezing Gastrointestinal Gastrointestinal: Reports abdominal pain (abdominal cramping), Denies melena, Denies hematochezia, Denies change in bowel habits, Denies change in stool character, Denies constipation, Denies diarrhea, Reports nausea and Denies vomiting Genitourinary Denies hematuria, Denies urinary frequency, Denies dysuria, Denies flank pain and Denies urinary urgency Integumentary/Breasts Denies rash Neurologic Denies syncope, Denies headache(s) and Denies weakness Allergic/Immunologic Denies throat swelling and Reports wheezing PFSH Medical History (Updated 01/03/19 @ 12:17 by Yadira Parks DO) Asthma (Chronic) Surgical History (Updated 01/03/19 @ 08:16 by Yadira Parks DO) History of back surgery (Chronic) History of cholecystectomy (Chronic) Social History (Updated 01/03/19 @ 08:16 by Yadira Parks DO) marital status: Smoking Status: Never smoker alcohol intake: current substance use type: does not use Social History (Updated 01/03/19 @ 08:16 by Yadira Parks DO) marital status: Smoking Status: Never smoker alcohol intake: current substance use type: does not use Exam Narrative Exam Narrative: GEN: well nourished, well appearing elderly female, alert and oriented x 3, patient appears to be in mild distress. HEENT: Atraumatic, pupils are equal round reactive to light, extraocular movements are intact, nares are clear, TMs are clear with no fluid, there is no conjunctival pallor. Throat is clear without any exudates, erythema, tonsillar enlargement or uvular deviation, patient has sore hoarse voice. No stridor. HEART: Regular rate and rhythm without murmur, clicks, rubs. LUNGS:Lungs coarse bilaterally, no wheezes, rales, crackles, chest moves symmetrically, no tachypnea, no accessory muscle use. This patient has intermittent dry almost barky cough although it does not sound quite like a classic croup cough. ABD:bowel sounds normal, soft, non-tender, no guarding, rebound, rigidity, no masses noted, no hepatosplenomegaly :No CVA tenderness MSCL: Non-tender, no muscle atrophy, muscles strength 5/5 upper and lower extremities, full range of motion, normal gait NEURO:CN 2-12 intact, sensation normal Initial Vital Signs Initial Vital Signs: Vital Signs Temperature 98.5 F 01/03/19 07:56 Pulse Rate 89 01/03/19 07:56 Respiratory Rate 19 01/03/19 07:56 Blood Pressure 156/70 H 01/03/19 07:56 Pulse Oximetry 100 01/03/19 07:56 Course Orders Ordered: ED Orders 01/03/19 08:04 Consult to Respiratory Therapy Evaluate & Treat EKG-12 Lead Stat 01/03/19 08:05 XR chest 1V Stat 01/03/19 08:55 B Type Natriuretic Peptide Stat Complete Blood Count AUTO DIFF Stat Comprehensive Metabolic Panel Stat Lactate (Lactic Acid) Stat Lipase Stat Procalcitonin Stat Troponin & CK Cardiac Panel Stat 01/03/19 09:05 Blood Culture Stat 01/03/19 09:50 Arterial Blood Gas Stat 01/03/19 10:39 CT angio chest PE protocol Stat 01/03/19 10:44 CT abdomen pelvis w con Stat Discontinued Medications Acetaminophen (Tylenol) 650 mg PO NOW ONE Stop: 01/03/19 09:18 Last Admin: 01/03/19 09:18 Dose: 650 mg Albuterol/Ipratropium (Duoneb) 3 ml INH NOW ONE Stop: 01/03/19 08:05 Last Admin: 01/03/19 08:15 Dose: 3 ml Sodium Chloride (Normal Saline 0.9%) 1,000 mls @ 1,000 mls/hr IV BOLUS ONE Stop: 01/03/19 09:03 Last Infusion: 01/03/19 09:36 Dose: 0 mls/hr Admin: 01/03/19 08:33 Dose: 1,000 mls/hr Methylprednisolone (Solu-Medrol 125 Mg Vial) 125 mg IV NOW ONE Stop: 01/03/19 08:05 Last Admin: 01/03/19 08:33 Dose: 125 mg Ondansetron HCl (Zofran) 4 mg IV NOW ONE Stop: 01/03/19 10:16 Last Admin: 05/12/19 10:19 Dose: 4 mg Potassium Chloride (Potassium Chloride) 40 meq PO NOW ONE Stop: 01/03/19 09:33 Last Admin: 01/03/19 10:04 Dose: 40 meq Vital Signs - 8 hr 01/03/19 07:56 01/03/19 08:20 01/03/19 09:38 Temperature 98.5 F Pulse Rate 89 85 78 Respiratory Rate 19 20 14 Blood Pressure 156/70 H Blood Pressure [Left Arm] 144/56 H Pulse Oximetry 100 77 L 01/03/19 10:05 01/03/19 11:00 01/03/19 11:30 Temperature Pulse Rate 84 87 91 H Respiratory Rate 20 18 20 Blood Pressure Blood Pressure [Left Arm] 162/89 H 149/66 H 101/58 L Pulse Oximetry 98 94 97 MDM - SOB/Dyspnea Lab Data Attestation: I reviewed the patient's lab results. Result diagrams: 01/03/19 08:55 01/03/19 08:55 Lab Results 01/03/19 01/03/19 01/03/19 Range/Units 08:55 08:55 08:55 WBC 8.3 (4.5-11.0) X10^3/uL RBC 4.12 (4.0-5.2) X10^6/uL Hgb 11.8 L (12.0-16.0) g/dL Hct 36.1 (36-46) % MCV 87.7 (80-100) fL MCH 28.7 (26-34) PG MCHC 32.8 (30-36) % RDW 12.6 (11.6-14.8) % Plt Count 294 (150-400) X10^3/uL Neut % (Auto) 61.6 (50-75) % Lymph % (Auto) 27.9 (25-40) % Mower % (Auto) 9.0 (3-14) % Eos % (Auto) 1.2 L (2-4) % Baso % (Auto) 0.3 (0-2) % Neut # (Auto) 5100 (9303-9111) /uL Lymph # (Auto) 2300 (8150-5289) /uL Mower # (Auto) 700 (0-900) /uL Eos # (Auto) 100 (0-450) /uL Baso # (Auto) 0 (0-100) /uL ABG pH (7.35-7.45) ABG pCO2 (35-45) mmHg ABG pO2 (80-100) mmHg ABG HCO3 (22-26) mmol/L ABG Total CO2 (21-31) mmol/L ABG O2 Saturation (95-100) % ABG Base Excess (-2-2) mmol/L FiO2 Sodium (137-145) mmol/L Potassium (3.4-5.1) mmol/L Chloride (98-107) mmol/L Carbon Dioxide (22-32) mmol/L BUN (7-17) mg/dL Creatinine (0.52-1.04) mg/dL Estimated GFR (>60) mL/min BUN/Creatinine Ratio (6-22) Glucose (80-110) mg/dL Lactate (0.7-2.1) mmol/L Calcium (8.4-10.2) mg/dL Total Bilirubin (0.2-1.3) mg/dL AST (14-36) IU/L ALT (9-52) IU/L Alkaline Phosphatase (38-126) U/L Total Creatine Kinase 60 (30-135) U/L CK-MB (CK-2) TNP CK-MB (CK-2) Rel Index TNP Troponin I < 0.012 (0.01-0.034) ng/mL B-Natriuretic Peptide < 100 (<100) Total Protein (6.3-8.2) g/dL Albumin (3.5-5.0) g/dL Globulin (1.7-4.1) g/dL Albumin/Globulin Ratio (1.0-2.8) Lipase (23-300) U/L Procalcitonin < 0.05 (<0.5) ng/mL TSH (0.47-4.68) uIU/mL 01/03/19 01/03/19 01/03/19 Range/Units 08:55 08:55 08:55 WBC (4.5-11.0) X10^3/uL RBC (4.0-5.2) X10^6/uL Hgb (12.0-16.0) g/dL Hct (36-46) % MCV (80-100) fL MCH (26-34) PG MCHC (30-36) % RDW (11.6-14.8) % Plt Count (150-400) X10^3/uL Neut % (Auto) (50-75) % Lymph % (Auto) (25-40) % Mower % (Auto) (3-14) % Eos % (Auto) (2-4) % Baso % (Auto) (0-2) % Neut # (Auto) (0211-0272) /uL Lymph # (Auto) (1499-5388) /uL Mower # (Auto) (0-900) /uL Eos # (Auto) (0-450) /uL Baso # (Auto) (0-100) /uL ABG pH (7.35-7.45) ABG pCO2 (35-45) mmHg ABG pO2 (80-100) mmHg ABG HCO3 (22-26) mmol/L ABG Total CO2 (21-31) mmol/L ABG O2 Saturation (95-100) % ABG Base Excess (-2-2) mmol/L FiO2 Sodium 141 (137-145) mmol/L Potassium 3.2 L (3.4-5.1) mmol/L Chloride 105 (98-107) mmol/L Carbon Dioxide 27 (22-32) mmol/L BUN 18 H (7-17) mg/dL Creatinine 0.70 (0.52-1.04) mg/dL Estimated GFR > 60.0 (>60) mL/min BUN/Creatinine Ratio 25.7 H (6-22) Glucose 112 H (80-110) mg/dL Lactate 2.5 H (0.7-2.1) mmol/L Calcium 9.1 (8.4-10.2) mg/dL Total Bilirubin 0.3 (0.2-1.3) mg/dL AST 26 (14-36) IU/L ALT 29 (9-52) IU/L Alkaline Phosphatase 93 (38-126) U/L Total Creatine Kinase (30-135) U/L CK-MB (CK-2) CK-MB (CK-2) Rel Index Troponin I (0.01-0.034) ng/mL B-Natriuretic Peptide (<100) Total Protein 6.9 (6.3-8.2) g/dL Albumin 3.9 (3.5-5.0) g/dL Globulin 3.0 (1.7-4.1) g/dL Albumin/Globulin Ratio 1.3 (1.0-2.8) Lipase 55 (23-300) U/L Procalcitonin (<0.5) ng/mL TSH (0.47-4.68) uIU/mL 01/03/19 01/03/19 01/03/19 Range/Units 09:50 11:35 Unknown WBC (4.5-11.0) X10^3/uL RBC (4.0-5.2) X10^6/uL Hgb (12.0-16.0) g/dL Hct (36-46) % MCV (80-100) fL MCH (26-34) PG MCHC (30-36) % RDW (11.6-14.8) % Plt Count (150-400) X10^3/uL Neut % (Auto) (50-75) % Lymph % (Auto) (25-40) % Mower % (Auto) (3-14) % Eos % (Auto) (2-4) % Baso % (Auto) (0-2) % Neut # (Auto) (7303-3900) /uL Lymph # (Auto) (5847-5173) /uL Mower # (Auto) (0-900) /uL Eos # (Auto) (0-450) /uL Baso # (Auto) (0-100) /uL ABG pH 7.70 H* (7.35-7.45) ABG pCO2 16.6 L* (35-45) mmHg ABG pO2 148 H (80-100) mmHg ABG HCO3 20 L (22-26) mmol/L ABG Total CO2 21 (21-31) mmol/L ABG O2 Saturation 100 (95-100) % ABG Base Excess 0.0 (-2-2) mmol/L FiO2 0.21 Sodium (137-145) mmol/L Potassium (3.4-5.1) mmol/L Chloride (98-107) mmol/L Carbon Dioxide (22-32) mmol/L BUN (7-17) mg/dL Creatinine (0.52-1.04) mg/dL Estimated GFR (>60) mL/min BUN/Creatinine Ratio (6-22) Glucose (80-110) mg/dL Lactate 1.9 (0.7-2.1) mmol/L Calcium (8.4-10.2) mg/dL Total Bilirubin (0.2-1.3) mg/dL AST (14-36) IU/L ALT (9-52) IU/L Alkaline Phosphatase (38-126) U/L Total Creatine Kinase (30-135) U/L CK-MB (CK-2) CK-MB (CK-2) Rel Index Troponin I (0.01-0.034) ng/mL B-Natriuretic Peptide (<100) Total Protein (6.3-8.2) g/dL Albumin (3.5-5.0) g/dL Globulin (1.7-4.1) g/dL Albumin/Globulin Ratio (1.0-2.8) Lipase (23-300) U/L Procalcitonin (<0.5) ng/mL TSH 2.36 (0.47-4.68) uIU/mL Urine Dip Bedside Urine Glucose Negative Bedside Urine Bilirubin - Negative Bedside Urine Ketone - Negative Urine Specific [place] 1.015 Bedside Urine Occult Blood - Negative Bedside Urine pH 8.0 Bedside Urine Protein - Negative Bedside Urine Urobilinogen - Negative Bedside Urine Nitrite - Negative Bedside Urine Leukocytes - Negative Esterase Imaging Data Chest x-ray: Radiologist's impression: [address] [address] XRay Report Signed Patient: Hayde Mensah LMR#: [id number] : 9Acct:[id number] Age/Sex: 68 / FDate of Service: 01/03/19 Loc: ED Accession Number: [id number] Procedure: XR chest 1V Ordering Provider: Yadira Parks D.O. PROCEDURE: XR CHEST 1V INDICATIONS: Short of breath, barky cough, has pna on abx x 2 in 2 months TECHNIQUE: One view of the chest was acquired. COMPARISON: [facility], CT, CT ANGIO CHEST PE PROTOCOL, 12/01/2018, 12:39. [facility], CR, CHEST 1 VIEW, 10/19/2017, 8:44. [facility], CR, XR CHEST 1V, 12/01/2018, 10:57. FINDINGS: Surgical changes and devices: None. Lungs and pleura: Lungs are clear. No pleural effusions or pneumothorax. Mediastinum: Mediastinal contours appear normal. Heart size is normal. Atherosclerotic calcification of the aortic arch is noted. Bones and chest wall: Age-appropriate bony degenerative changes are seen. No suspicious bony lesions. Overlying soft tissues appear unremarkable. IMPRESSION: No focal infiltrates. Dictated by: Rafa Baldwin M.D. on 01/03/2019 at 7:21 Approved by: Rafa Baldwin M.D. on 01/03/2019 at 7:22 CT scan - abdomen: Radiologist's impression: [place] [address] CT Scan Report Signed Patient: Hayde Mensah LMR#: [id number] : 9Acct:[id number] Age/Sex: 68 / FDate of Service: 01/03/19 Loc: ED Accession Number: [id number] Procedure: CT abdomen pelvis w con Ordering Provider: Yadira Parks D.O. PROCEDURE: CT ABDOMEN PELVIS W CON INDICATIONS: cough, respiratory alkalosis, n, abdomina pain LLQ TECHNIQUE: After the administration of intravenous contrast, 5 mm thick sections acquired from the diaphragm to the symphysis. 5 mm coronal and sagittal reformats were acquired. For radiation dose reduction, the following was used: automated exposure control, adjustment of mA and/or kV according to patient size. COMPARISON: None. FINDINGS: Image quality: Excellent. ABDOMEN: Lung bases: Lung bases are clear. Heart size is normal. Solid organs: Liver is normal in size and enhancement. Circumscribed calcification within the posterior right hepatic lobe is redemonstrated and appears unchanged. Gallbladder is surgically absent. Biliary system is non dilated. Pancreas enhances normally. Spleen is normal in size and enhancement. No adrenal nodules. Kidneys demonstrate normal size and enhancement, without hydronephrosis. Peritoneum and bowel: Bowel loops demonstrate normal wall thickness and caliber. There are scattered atheromatous calcifications throughout the aorta and iliac arteries bilaterally. There is trace low-density free fluid within the pelvis which may be physiologic in nature. Nodes and vessels: No retroperitoneal or mesenteric adenopathy by size criteria. Aorta and inferior vena cava are normal in size. Scattered atheromatous calcific indications are present within the abdominal aorta. Miscellaneous: No ventral hernias. PELVIS: Genitourinary: Bladder wall thickness is normal. The uterus and ovaries are grossly unremarkable. Miscellaneous: No inguinal hernias or adenopathy. Bones: No suspicious bony lesions. No vertebral body compression fractures. Mild degenerative changes are present throughout the lumbar spine. IMPRESSION: 1. No acute intra-abdominal findings. Normal appendix. Dictated by: Vidya Montano M.D. on 01/03/2019 at 11:18 Approved by: Vidya Montano M.D. on 01/03/2019 at 11:21 CT scan - chest: Radiologist's impression: [place] [address] CT Scan Report Signed Patient: Hayde Mensah LMR#: [id number] : 9Acct:[id number] Age/Sex: 68 / FDate of Service: 01/03/19 Loc: ED Accession Number: [id number] Procedure: CT angio chest PE protocol Ordering Provider: Yadira Parks D.O. PROCEDURE: CT ANGIO CHEST PE PROTOCOL INDICATIONS: cough, sob, resp alkalosis, symptoms x 8 wks TECHNIQUE: After the administration of intravenous contrast, 2 mm thick sections acquired from the pulmonary apices to the posterior costophrenic angles. 3-dimensional maximum intensity projection (MIP) coronal and sagittal reformats were then acquired through the thorax. For radiation dose reduction, the following was used: automated exposure control, adjustment of mA and/or kV according to patient size. COMPARISON: None. FINDINGS: Image quality: Excellent. Pulmonary arteries: Pulmonary arteries are normal in size, and demonstrate no intraluminal filling defects to suggest central pulmonary embolism. Lungs and pleura: Lungs are clear. No pleural effusions or pneumothorax. Central and peripheral airways are patent. Mediastinum: Heart size is normal, without pericardial effusion. No mediastinal or hilar adenopathy. Thoracic aorta is normal in caliber and enhancement. Scattered atheromatous calcifications are present within the aortic arch. Esophagus is normal in caliber, without hiatal hernia. Bones and chest wall: No suspicious bony lesions. Ribs and thoracic spine appear intact throughout. Degenerative changes are present throughout the thoracic spine. Thyroid gland is unremarkable. No axillary or supraclavicular adenopathy. Abdomen: A focal dense calcification is present within the posterior right hepatic lobe which has a benign appearance. Visualized upper abdominal solid organs appear normal in the early arterial phase of enhancement. IMPRESSION: No acute pulmonary embolus. Dictated by: Vidya Montano M.D. on 01/03/2019 at 11:16 Approved by: Vidya Montano M.D. on 01/03/2019 at 11:18 ECG Data Attestation: I personally reviewed and interpreted this ECG as follows: Prior ECG tracings: available for review Interpretation: Sinus rhythm with a rate of 8150 for MD interval, QRS of 82 and QTC of 431. Patient has some mild ST depression in lateral leads V4 through V6. Nonspecific changes throughout. Patient has an EKG from 12/05/2015 which shows similar changes. MDM Narrative Medical decision making narrative: 68-year-old female comes to the emergency department. I suspect this is more airway involvement especially with her continued hoarse voice and barky cough but based on her age and prolonged symptomatology cardiac enzymes and EKG were included. Patient was given Solu-Medrol as well as a breathing treatment here in the department. Patient's lab work does not show any major abnormalities except for a hemoglobin being a little bit low in comparison to November. Potassium is 3.2, BUN slightly elevated 18, lactate is also slightly elevated 2.5 and has improved on recheck, with normal LFTs, normal troponin and BNP. Procalcitonin is normal with TSH is normal. Patient had 1 episode of low O2 so ABG was ordered. Her shows a respiratory alkalosis, patient has normal PA O2, uncompensated. Discussed with patient she did have a CT back in November but with the change in her ABG, or continued symptoms after several weeks although they have improved and are now worsening I would recommend repeat evaluation. Plan for angiography. Patient has also been complaining quite abdominal pain and she is little bit tender on repeat evaluation particularly the left lower quadrant. She has not had any diarrhea, states she has had normal bowel movements but she has been nauseated, patient and are agreeable for imaging so will also include abdomen and pelvis. CT shows no acute changes in the pulmonary vasculature con the lungs do not show any signs of infection at this time, patient's abdomen and pelvis shows little bit of free fluid and some calcification in the liver which is seen on old CT. Discussed with patient. Patient is feeling better. She would like to return home she has not had any other episodes of hypoxia. She has albuterol at home but does not have a spacer. She also has not been here all nebulizer. Patient does apparently have a steroid inhaler but has not been using. I will give her prescription in case it is not actually a steroid inhaler but told has been to double-check either with the pharmacist or call back. We also discussed offering a short course of oral steroids but she can start these if she is not feeling any improved symptoms with the inhaled steroid. Patient does have follow-up with pulmonology in early January which I think is very appropriate. Discharge Plan Departure Patient Disposition: Home Clinical Impression: Exacerbation of reactive airway disease Discharge Date/Time: 01/03/19 12:31 Interventions: ED Discharge Assessment Last Done: 01/03/19 12:31 Instructions: DI for Reactive Airway Disease-Adult Activity Restrictions/Additional Instructions: Follow up with your health data administrator at your scheduled appointment. I would also recommend follow-up with your primary care in the next 2-3 days for recheck. Start your inhaled steroid, use this twice daily regardless of symptoms. Make sure that you are rinsing your mouth out and the inhaler after each use. If used your albuterol inhaler, use with a spacer you may use inhaled albuterol or your nebulizer every 4 hours as needed for symptoms. If you're not having any improvement in your symptoms over the next 24 hours continue with oral steroids. Return to the emergency department for fevers greater than 100.4 F, worsening difficulty with breathing, new chest pain or pressure, passing out, persistent vomiting, black or bloody stools or other new abdominal pain, other new or concerning symptoms. Prescriptions: New fluticasone propion-salmeterol [Advair Diskus] 250-50 mcg/dose blister with device 1 inhalation INHALATION BID Qty: 60 RF: 0 prednisone 50 mg tablet 50 mg PO DAILY Qty: 5 RF: 0 No Action albuterol sulfate 2.5 mg /3 mL (0.083 %) solution for nebulization 3 ml Inhalation PRN PRN (Reason: Shortness Of Breath) RF: 0 azithromycin 250 mg tablet 250 mg PO DAILYX4 RF: 0 triamterene-hydrochlorothiazid 37.5-25 mg tablet 1 tab PO DAILY RF: 0 albuterol sulfate [ProAir HFA] 90 mcg/actuation HFA aerosol inhaler 2 puff Inhalation Q4H PRN (Reason: wheezing,cough, or congestion) RF: 0 Flovent HFA 110 mcg/actuation HFA aerosol inhaler 2 puff Inhalation Q12H RF: 0 Restasis 0.05 % dropperette 1 drp ophthalmic (eye) BID RF: 0 CoQ-10 1 cap PO DAILY RF: 0 codeine-guaifenesin [Guaifenesin AC] 10-100 mg/5 mL liquid 10 ml PO Q4-6H PRN (Reason: cough) Qty: 120 RF: 0 magnesium 30 mg tablet 30 mg PO DAILY RF: 0 omega-3 fatty acids [Fish Oil Concentrate] 1,000 mg capsule 1,000 mg PO DAILY RF: 0 cholecalciferol (vitamin D3) 1,000 unit capsule 1,000 unit PO DAILY RF: 0 ascorbic acid (vitamin C) 500 mg capsule 500 mg PO DAILY RF: 0 meloxicam 15 mg tablet 15 mg PO DAILY Qty: 90 RF: 2 potassium 1 dose PO DAILY RF: 0 Referrals: Baljit Bishop MD [Primary Care Provider] -
[2019-01-03] MEDS: ALBUTEROL/IPRATROPIUM 3 ML AMPUL INH (08:15)
[2019-01-03 08:20] VITALS: PULSE 85; RESP 20
--- NOTE | 2019-01-03 08:20 | ED_ITS ---
HPI - SOB/Dyspnea General Chief Complaint: Shortness of Breath/Dyspnea Stated Complaint: Asthma,coughing,abd pain Time Seen by Provider: 01/03/19 08:04 Source: patient, family () and old records reviewed Mode of arrival: ambulatory Limitations: no limitations History of Present Illness This is a 68-year-old female comes to the emergency department with shortness of breath and a barky cough. Patient states that she started having the symptoms starting on Friday. She states that she has felt sort of achy all over, kind of chilled. She has had cough with chest congestion. She states it is productive but she spits it into a Kleenex and has not looked at it. She has had a barky cough. Patient states she has had some nasal congestion. She feels a little short of breath. She did do a breathing treatment at home when she was having persistent coughing that just would not stop. This was helpful but she continues to have some cough. Patient states she has also felt nauseated over the weekend. She has not vomited. She has had normal bowel movements but felt cramping in her abdomen. She has had normal urination without any frequency urgency or dysuria. She has felt like her ankles were a little bit more swollen in her shoes were more tight today. Of note she has recently had pneumonia and had 2 rounds of antibiotics and was improving but not resolved. She has also had a hoarse voice that is been going on for about 4 weeks which has also not improved. She was on prednisone she finished in November she is not sure of the exact date. And her albuterol treatment this morning was helpful. Patient states she has been told she has asthma although she states this is a more recent diagnosis in the last 2 years. She had similar issues with asthma attacks and difficulty with breathing last spring. She has had back surgery. Patient has never smoked. She occasionally has an alcoholic drink once or twice a month. Denies any illicit. Related Data Home Medications Medication Instructions Recorded Confirmed potassium 1 dose PO DAILY 02/05/18 12/01/18 magnesium 30 mg tablet 30 mg PO DAILY 04/24/18 12/01/18 omega-3 fatty acids 1,000 mg 1,000 mg PO DAILY 04/24/18 12/01/18 capsule ascorbic acid (vitamin C) 500 mg 500 mg PO DAILY cap 06/11/18 12/01/18 capsule cholecalciferol (vitamin D3) 1,000 1,000 unit PO DAILY 06/11/18 12/01/18 unit capsule CoQ-10 1 cap PO DAILY 12/01/18 12/01/18 albuterol sulfate 3 ml INHALATION PRN PRN 12/01/18 12/01/18 albuterol sulfate [ProAir HFA] 2 puff INHALATION Q4H PRN 12/01/18 12/01/18 azithromycin 250 mg PO DAILYX4 12/01/18 12/01/18 cyclosporine [Restasis] 1 drp OPHTHALMIC (EYE) BID 12/01/18 12/01/18 fluticasone propionate [Flovent 2 puff INHALATION Q12H 12/01/18 12/01/18 HFA] triamterene-hydrochlorothiazid 1 tab PO DAILY 12/01/18 12/01/18 Previous Rx's Medication Instructions Recorded meloxicam 15 mg tablet 15 mg PO DAILY #90 tab 09/11/18 codeine-guaifenesin [Guaifenesin 10 ml PO Q4-6H PRN #120 ml 12/01/18 AC] fluticasone propion-salmeterol 1 inhalation INHALATION BID #60 01/03/19 [Advair Diskus] each prednisone 50 mg PO DAILY #5 tab 01/03/19 Allergies Allergy/AdvReac Type Severity Reaction Status Date / Time chocolate flavor Allergy Intermediate INCREASED Verified 01/03/19 07:56 [CHOCOLATE FLAVOR] HR, HEADACHE Penicillins [PENICILLINS] Allergy Intermediate HIVES Verified 01/03/19 07:56 oxycodone [OXYCODONE] AdvReac Intermediate N/V, Verified 01/03/19 07:56 HEADACHE Review of Systems Review of Systems ROS Unobtainable: All systems reviewed & are unremarkable except as noted in HPI and below Constitutional Reports body ache(s), Reports chills, Denies fever(s), Denies headache(s), Denies lethargy, Denies night sweats and Denies weakness ENT Ears, Nose, Mouth, and Throat: Denies headache(s), Reports hoarseness, Reports nasal congestion, Reports sinus pressure, Denies sore throat and Denies throat swelling Cardiovascular Denies chest pain, Denies chest pain at rest, Denies syncope, Reports pedal edema, Denies lightheadedness, Reports dyspnea, Reports dyspnea on exertion and Denies orthopnea Respiratory Reports chest congestion, Reports cough (barky cough), Reports excessive phlegm production, Denies pain on inspiration, Denies pain with cough, Reports dyspnea, Reports dyspnea on exertion and Reports wheezing Gastrointestinal Gastrointestinal: Reports abdominal pain (abdominal cramping), Denies melena, Denies hematochezia, Denies change in bowel habits, Denies change in stool character, Denies constipation, Denies diarrhea, Reports nausea and Denies vomiting Genitourinary Denies hematuria, Denies urinary frequency, Denies dysuria, Denies flank pain and Denies urinary urgency Integumentary/Breasts Denies rash Neurologic Denies syncope, Denies headache(s) and Denies weakness Allergic/Immunologic Denies throat swelling and Reports wheezing [facility] Medical History (Updated 01/03/19 @ 12:17 by Yadira Parks DO) Asthma (Chronic) Surgical History (Updated 01/03/19 @ 08:16 by Yadira Parks DO) History of back surgery (Chronic) History of cholecystectomy (Chronic) Social History (Updated 01/03/19 @ 08:16 by Yadira Parks DO) marital status: Smoking Status: Never smoker alcohol intake: current substance use type: does not use Social History (Updated 01/03/19 @ 08:16 by Yadira Parks DO) marital status: Smoking Status: Never smoker alcohol intake: current substance use type: does not use Exam Narrative Exam Narrative: GEN: well nourished, well appearing elderly female, alert and oriented x 3, patient appears to be in mild distress. HEENT: Atraumatic, pupils are equal round reactive to light, extraocular movem ents are intact, nares are clear, TMs are clear with no fluid, there is no conjunctival pallor. Throat is clear without any exudates, erythema, tonsillar enlargement or uvular deviation, patient has sore hoarse voice. No stridor. HEART: Regular rate and rhythm without murmur, clicks, rubs. LUNGS:Lungs coarse bilaterally, no wheezes, rales, crackles, chest moves symmetrically, no tachypnea, no accessory muscle use. This patient has intermittent dry almost barky cough although it does not sound quite like a classic croup cough. ABD:bowel sounds normal, soft, non-tender, no guarding, rebound, rigidity, no masses noted, no hepatosplenomegaly :No CVA tenderness MSCL: Non-tender, no muscle atrophy, muscles strength 5/5 upper and lower extremities, full range of motion, normal gait NEURO:CN 2-12 intact, sensation normal Initial Vital Signs Initial Vital Signs: Vital Signs Temperature 98.5 F 01/03/19 07:56 Pulse Rate 89 01/03/19 07:56 Respiratory Rate 19 01/03/19 07:56 Blood Pressure 156/70 H 01/03/19 07:56 Pulse Oximetry 100 01/03/19 07:56 Course Orders Ordered: ED Orders 01/03/19 08:04 Consult to Respiratory Therapy Evaluate & Treat EKG-12 Lead Stat 01/03/19 08:05 XR chest 1V Stat 01/03/19 08:55 B Type Natriuretic Peptide Stat Complete Blood Count AUTO DIFF Stat Comprehensive Metabolic Panel Stat Lactate (Lactic Acid) Stat Lipase Stat Procalcitonin Stat Troponin & CK Cardiac Panel Stat 01/03/19 09:05 Blood Culture Stat 01/03/19 09:50 Arterial Blood Gas Stat 01/03/19 10:39 CT angio chest PE protocol Stat 01/03/19 10:44 CT abdomen pelvis w con Stat Discontinued Medications Acetaminophen (Tylenol) 650 mg PO NOW ONE Stop: 01/03/19 09:18 Last Admin: 01/03/19 09:18 Dose: 650 mg Albuterol/Ipratropium (Duoneb) 3 ml INH NOW ONE Stop: 01/03/19 08:05 Last Admin: 01/03/19 08:15 Dose: 3 ml Sodium Chloride (Normal Saline 0.9%) 1,000 mls @ 1,000 mls/hr IV BOLUS ONE Stop: 01/03/19 09:03 Last Infusion: 01/03/19 09:36 Dose: 0 mls/hr Admin: 01/03/19 08:33 Dose: 1,000 mls/hr Methylprednisolone (Solu-Medrol 125 Mg Vial) 125 mg IV NOW ONE Stop: 01/03/19 08:05 Last Admin: 01/03/19 08:33 Dose: 125 mg Ondansetron HCl (Zofran) 4 mg IV NOW ONE Stop: 01/03/19 10:16 Last Admin: 01/03/19 10:19 Dose: 4 mg Potassium Chloride (Potassium Chloride) 40 meq PO NOW ONE Stop: 01/03/19 09:33 Last Admin: 01/03/19 10:04 Dose: 40 meq Vital Signs - 8 hr 01/03/19 07:56 01/03/19 08:20 01/03/19 09:38 Temperature 98.5 F Pulse Rate 89 85 78 Respiratory Rate 19 20 14 Blood Pressure 156/70 H Blood Pressure [Left Arm] 144/56 H Pulse Oximetry 100 77 L 01/03/19 10:05 01/03/19 11:00 01/03/19 11:30 Temperature Pulse Rate 84 87 91 H Respiratory Rate 20 18 20 Blood Pressure Blood Pressure [Left Arm] 162/89 H 149/66 H 101/58 L Pulse Oximetry 98 94 97 MDM - SOB/Dyspnea Lab Data Attestation: I reviewed the patient's lab results. Result diagrams: 01/03/19 08:55 01/03/19 08:55 Lab Results 01/03/19 01/03/19 01/03/19 Range/Units 08:55 08:55 08:55 WBC 8.3 (4.5-11.0) X10^3/uL RBC 4.12 (4.0-5.2) X10^6/uL Hgb 11.8 L (12.0-16.0) g/dL Hct 36.1 (36-46) % MCV 87.7 (80-100) fL MCH 28.7 (26-34) PG MCHC 32.8 (30-36) % RDW 12.6 (11.6-14.8) % Plt Count 294 (150-400) X10^3/uL Neut % (Auto) 61.6 (50-75) % Lymph % (Auto) 27.9 (25-40) % [place] % (Auto) 9.0 (3-14) % Eos % (Auto) 1.2 L (2-4) % Baso % (Auto) 0.3 (0-2) % Neut # (Auto) 5100 (4582-6955) /uL Lymph # (Auto) 2300 (3187-9957) /uL [place] # (Auto) 700 (0-900) /uL Eos # (Auto) 100 (0-450) /uL Baso # (Auto) 0 (0-100) /uL ABG pH (7.35-7.45) ABG pCO2 (35-45) mmHg ABG pO2 (80-100) mmHg ABG HCO3 (22-26) mmol/L ABG Total CO2 (21-31) mmol/L ABG O2 Saturation (95-100) % ABG Base Excess (-2-2) mmol/L FiO2 Sodium (137-145) mmol/L Potassium (3.4-5.1) mmol/L Chloride (98-107) mmol/L Carbon Dioxide (22-32) mmol/L BUN (7-17) mg/dL Creatinine (0.52-1.04) mg/dL Estimated GFR (>60) mL/min BUN/Creatinine Ratio (6-22) Glucose (80-110) mg/dL Lactate (0.7-2.1) mmol/L Calcium (8.4-10.2) mg/dL Total Bilirubin (0.2-1.3) mg/dL AST (14-36) IU/L ALT (9-52) IU/L Alkaline Phosphatase (38-126) U/L Total Creatine Kinase 60 (30-135) U/L CK-MB (CK-2) TNP CK-MB (CK-2) Rel Index TNP Troponin I < 0.012 (0.01-0.034) ng/mL B-Natriuretic Peptide < 100 (<100) Total Protein (6.3-8.2) g/dL Albumin (3.5-5.0) g/dL Globulin (1.7-4.1) g/dL Albumin/Globulin Ratio (1.0-2.8) Lipase (23-300) U/L Procalcitonin < 0.05 (<0.5) ng/mL TSH (0.47-4.68) uIU/mL 01/03/19 01/03/19 01/03/19 Range/Units 08:55 08:55 08:55 WBC (4.5-11.0) X10^3/uL RBC (4.0-5.2) X10^6/uL Hgb (12.0-16.0) g/dL Hct (36-46) % MCV (80-100) fL MCH (26-34) PG MCHC (30-36) % RDW (11.6-14.8) % Plt Count (150-400) X10^3/uL Neut % (Auto) (50-75) % Lymph % (Auto) (25-40) % [place] % (Auto) (3-14) % Eos % (Auto) (2-4) % Baso % (Auto) (0-2) % Neut # (Auto) (4607-7026) /uL Lymph # (Auto) (8641-7334) /uL [place] # (Auto) (0-900) /uL Eos # (Auto) (0-450) /uL Baso # (Auto) (0-100) /uL ABG pH (7.35-7.45) ABG pCO2 (35-45) mmHg ABG pO2 (80-100) mmHg ABG HCO3 (22-26) mmol/L ABG Total CO2 (21-31) mmol/L ABG O2 Saturation (95-100) % ABG Base Excess (-2-2) mmol/L FiO2 Sodium 141 (137-145) mmol/L Potassium 3.2 L (3.4-5.1) mmol/L Chloride 105 (98-107) mmol/L Carbon Dioxide 27 (22-32) mmol/L BUN 18 H (7-17) mg/dL Creatinine 0.70 (0.52-1.04) mg/dL Estimated GFR > 60.0 (>60) mL/min BUN/Creatinine Ratio 25.7 H (6-22) Glucose 112 H (80-110) mg/dL Lactate 2.5 H (0.7-2.1) mmol/L Calcium 9.1 (8.4-10.2) mg/dL Total Bilirubin 0.3 (0.2-1.3) mg/dL AST 26 (14-36) IU/L ALT 29 (9-52) IU/L Alkaline Phosphatase 93 (38-126) U/L Total Creatine Kinase (30-135) U/L CK-MB (CK-2) CK-MB (CK-2) Rel Index Troponin I (0.01-0.034) ng/mL B-Natriuretic Peptide (<100) Total Protein 6.9 (6.3-8.2) g/dL Albumin 3.9 (3.5-5.0) g/dL Globulin 3.0 (1.7-4.1) g/dL Albumin/Globulin Ratio 1.3 (1.0-2.8) Lipase 55 (23-300) U/L Procalcitonin (<0.5) ng/mL TSH (0.47-4.68) uIU/mL 01/03/19 01/03/19 01/03/19 Range/Units 09:50 11:35 Unknown WBC (4.5-11.0) X10^3/uL RBC (4.0-5.2) X10^6/uL Hgb (12.0-16.0) g/dL Hct (36-46) % MCV (80-100) fL MCH (26-34) PG MCHC (30-36) % RDW (11.6-14.8) % Plt Count (150-400) X10^3/uL Neut % (Auto) (50-75) % Lymph % (Auto) (25-40) % [place] % (Auto) (3-14) % Eos % (Auto) (2-4) % Baso % (Auto) (0-2) % Neut # (Auto) (1747-3286) /uL Lymph # (Auto) (3861-4120) /uL [place] # (Auto) (0-900) /uL Eos # (Auto) (0-450) /uL Baso # (Auto) (0-100) /uL ABG pH 7.70 H* (7.35-7.45) ABG pCO2 16.6 L* (35-45) mmHg ABG pO2 148 H (80-100) mmHg ABG HCO3 20 L (22-26) mmol/L ABG Total CO2 21 (21-31) mmol/L ABG O2 Saturation 100 (95-100) % ABG Base Excess 0.0 (-2-2) mmol/L FiO2 0.21 Sodium (137-145) mmol/L Potassium (3.4-5.1) mmol/L Chloride (98-107) mmol/L Carbon Dioxide (22-32) mmol/L BUN (7-17) mg/dL Creatinine (0.52-1.04) mg/dL Estimated GFR (>60) mL/min BUN/Creatinine Ratio (6-22) Glucose (80-110) mg/dL Lactate 1.9 (0.7-2.1) mmol/L Calcium (8.4-10.2) mg/dL Total Bilirubin (0.2-1.3) mg/dL AST (14-36) IU/L ALT (9-52) IU/L Alkaline Phosphatase (38-126) U/L Total Creatine Kinase (30-135) U/L CK-MB (CK-2) CK-MB (CK-2) Rel Index Troponin I (0.01-0.034) ng/mL B-Natriuretic Peptide (<100) Total Protein (6.3-8.2) g/dL Albumin (3.5-5.0) g/dL Globulin (1.7-4.1) g/dL Albumin/Globulin Ratio (1.0-2.8) Lipase (23-300) U/L Procalcitonin (<0.5) ng/mL TSH 2.36 (0.47-4.68) uIU/mL Urine Dip Bedside Urine Glucose Negative Bedside Urine Bilirubin - Negative Bedside Urine Ketone - Negative Urine Specific [place] 1.015 Bedside Urine Occult Blood - Negative Bedside Urine pH 8.0 Bedside Urine Protein - Negative Bedside Urine Urobilinogen - Negative Bedside Urine Nitrite - Negative Bedside Urine Leukocytes - Negative Esterase Imaging Data Chest x-ray: Radiologist's impression: [address] [address] XRay Report Signed Patient: Hayde Mensah LMR#: [id number] : 9Acct:[id number] Age/Sex: 68 / FDate of Service: 01/03/19 Loc: ED Accession Number: [id number] Procedure: XR chest 1V Ordering Provider: Yadira Parks D.O. PROCEDURE: XR CHEST 1V INDICATIONS: Short of breath, barky cough, has pna on abx x 2 in 2 months TECHNIQUE: One view of the chest was acquired. COMPARISON: [facility], CT, CT ANGIO CHEST PE PROTOCOL, 12/01/2018, 12:39. [facility], CR, CHEST 1 VIEW, 10/19/2017, 8:44. [facility], CR, XR CHEST 1V, 12/01/2018, 10:57. FINDINGS: Surgical changes and devices: None. Lungs and pleura: Lungs are clear. No pleural effusions or pneumothorax. Mediastinum: Mediastinal contours appear normal. Heart size is normal. Atherosclerotic calcification of the aortic arch is noted. Bones and chest wall: Age-appropriate bony degenerative changes are seen. No suspicious bony lesions. Overlying soft tissues appear unremarkable. IMPRESSION: No focal infiltrates. Dictated by: Rafa Baldwin M.D. on 01/03/2019 at 7:21 Approved by: Rafa Baldwin M.D. on 01/03/2019 at 7:22 CT scan - abdomen: Radiologist's impression: [place] [address] CT Scan Report Signed Patient: Hayde Mensah LMR#: [id number] : 9Acct:[id number] Age/Sex: 68 / FDate of Service: 01/03/19 Loc: ED Accession Number: [id number] Procedure: CT abdomen pelvis w con Ordering Provider: Yadira Parks D.O. PROCEDURE: CT ABDOMEN PELVIS W CON INDICATIONS: cough, respiratory alkalosis, n, abdomina pain LLQ TECHNIQUE: After the administration of intravenous contrast, 5 mm thick sections acquired from the diaphragm to the symphysis. 5 mm coronal and sagittal reformats were acquired. For radiation dose reduction, the following was used: automated exposure control, adjustment of mA and/or kV according to patient size. COMPARISON: None. FINDINGS: Image quality: Excellent. ABDOMEN: Lung bases: Lung bases are clear. Heart size is normal. Solid organs: Liver is normal in size and enhancement. Circumscribed calcification within the posterior right hepatic lobe is redemonstrated and appears unchanged. Gallbladder is surgically absent. Biliary system is non dilated. Pancreas enhances normally. Spleen is normal in size and enhancement. No adrenal nodules. Kidneys demonstrate normal size and enhancement, without hydronephrosis. Peritoneum and bowel: Bowel loops demonstrate normal wall thickness and caliber. There are scattered atheromatous calcifications throughout the aorta and iliac arteries bilaterally. There is trace low-density free fluid within the pelvis which may be physiologic in nature. Nodes and vessels: No retroperitoneal or mesenteric adenopathy by size criteria. Aorta and inferior vena cava are normal in size. Scattered atheromatous calcific indications are present within the abdominal aorta. Miscellaneous: No ventral hernias. PELVIS: Genitourinary: Bladder wall thickness is normal. The uterus and ovaries are grossly unremarkable. Miscellaneous: No inguinal hernias or adenopathy. Bones: No suspicious bony lesions. No vertebral body compression fractures. Mild degenerative changes are present throughout the lumbar spine. IMPRESSION: 1. No acute intra-abdominal findings. Normal appendix. Dictated by: Vidya Montano M.D. on 01/03/2019 at 11:18 Approved by: Vidya Montano M.D. on 01/03/2019 at 11:21 CT scan - chest: Radiologist's impression: [place] [address] CT Scan Report Signed Patient: Hayde Mensah LMR#: [id number] : 9Acct:[id number] Age/Sex: 68 / FDate of Service: 01/03/19 Loc: ED Accession Number: [id number] Procedure: CT angio chest PE protocol Ordering Provider: Yadira Parks D.O. PROCEDURE: CT ANGIO CHEST PE PROTOCOL INDICATIONS: cough, sob, resp alkalosis, symptoms x 8 wks TECHNIQUE: After the administration of intravenous contrast, 2 mm thick sections acquired from the pulmonary apices to the posterior costophrenic angles. 3-dimensional maximum intensity projection (MIP) coronal and sagittal reformats were then acquired through the thorax. For radiation dose reduction, the following was used: automated exposure control, adjustment of mA and/or kV according to patient size. COMPARISON: None. FINDINGS: Image quality: Excellent. Pulmonary arteries: Pulmonary arteries are normal in size, and demonstrate no intraluminal filling defects to suggest central pulmonary embolism. Lungs and pleura: Lungs are clear. No pleural effusions or pneumothorax. Central and peripheral airways are patent. Mediastinum: Heart size is normal, without pericardial effusion. No mediastinal or hilar adenopathy. Thoracic aorta is normal in caliber and enhancement. Scattered atheromatous calcifications are present within the aortic arch. Esophagus is normal in caliber, without hiatal hernia. Bones and chest wall: No suspicious bony lesions. Ribs and thoracic spine appear intact throughout. Degenerative changes are present throughout the thoracic spine. Thyroid gland is unremarkable. No axillary or supraclavicular adenopathy. Abdomen: A focal dense calcification is present within the posterior right hepatic lobe which has a benign appearance. Visualized upper abdominal solid organs appear normal in the early arterial phase of enhancement. IMPRESSION: No acute pulmonary embolus. Dictated by: Vidya Montano M.D. on 01/03/2019 at 11:16 Approved by: Vidya Montano M.D. on 01/03/2019 at 11:18 ECG Data Attestation: I personally reviewed and interpreted this ECG as follows: Prior ECG tracings: available for review Interpretation: Sinus rhythm with a rate of 8150 for OK interval, QRS of 82 and QTC of 431. Patient has some mild ST depression in lateral leads V4 through V6. Nonspecific changes throughout. Patient has an EKG from 12/05/2015 which shows similar changes. MDM Narrative Medical decision making narrative: 68-year-old female comes to the emergency department. I suspect this is more airway involvement especially with her continued hoarse voice and barky cough but based on her age and prolonged symptomatology cardiac enzymes and EKG were included. Patient was given Solu- Medrol as well as a breathing treatment here in the department. Patient's lab work does not show any major abnormalities except for a hemoglobin being a little bit low in comparison to November. Potassium is 3.2, BUN slightly elevated 18, lactate is also slightly elevated 2.5 and has improved on recheck, with normal LFTs, normal troponin and BNP. Procalcitonin is normal with TSH is normal. Patient had 1 episode of low O2 so ABG was ordered. Her shows a respiratory alkalosis, patient has normal PA O2, uncompensated. Discussed with patient she did have a CT back in November but with the change in her ABG, or continued symptoms after several weeks although they have improved and are now worsening I would recommend repeat evaluation. Plan for angiography. Patient has also been complaining quite abdominal pain and she is little bit tender on repeat evaluation particularly the left lower quadrant. She has not had any diarrhea, states she has had normal bowel movements but she has been nauseated, patient and are agreeable for imaging so will also include abdomen and pelvis. CT shows no acute changes in the pulmonary vasculature con the lungs do not show any signs of infection at this time, patient's abdomen and pelvis shows little bit of free fluid and some calcification in the liver which is seen on old CT. Discussed with patient. Patient is feeling better. She would like to return home she has not had any other episodes of hypoxia. She has albuterol at home but does not have a spacer. She also has not been here all nebulizer. Patient does apparently have a steroid inhaler but has not been using. I will give her prescription in case it is not actually a steroid inhaler but told has been to double-check either with the pharmacist or call back. We also discussed offering a short course of oral steroids but she can start these if she is not feeling any improved symptoms with the inhaled steroid. Patient does have follow-up with pulmonology in early January which I think is very appropriate. Discharge Plan Departure Patient Disposition: Home Clinical Impression: Exacerbation of reactive airway disease Discharge Date/Time: 01/03/19 12:31 Interventions: ED Discharge Assessment Last Done: 01/03/19 12:31 Instructions: DI for Reactive Airway Disease-Adult Activity Restrictions/Additional Instructions: Follow up with your pharmacy cashier at your scheduled appointment. I would also recommend follow-up with your primary care in the next 2-3 days for recheck. Start your inhaled steroid, use this twice daily regardless of symptoms. Make sure that you are rinsing your mouth out and the inhaler after each use. If used your albuterol inhaler, use with a spacer you may use inhaled albuterol or your nebulizer every 4 hours as needed for symptoms. If you're not having any improvement in your symptoms over the next 24 hours continue with oral steroids. Return to the emergency department for fevers greater than 100.4 F, worsening difficulty with breathing, new chest pain or pressure, passing out, persistent vomiting, black or bloody stools or other new abdominal pain, other new or concerning symptoms. Prescriptions: New fluticasone propion-salmeterol [Advair Diskus] 250-50 mcg/dose blister with device 1 inhalation INHALATION BID Qty: 60 RF: 0 prednisone 50 mg tablet 50 mg PO DAILY Qty: 5 RF: 0 No Action albuterol sulfate 2.5 mg /3 mL (0.083 %) solution for nebulization 3 ml Inhalation PRN PRN (Reason: Shortness Of Breath) RF: 0 azithromycin 250 mg tablet 250 mg PO DAILYX4 RF: 0 triamterene-hydrochlorothiazid 37.5-25 mg tablet 1 tab PO DAILY RF: 0 albuterol sulfate [ProAir HFA] 90 mcg/actuation HFA aerosol inhaler 2 puff Inhalation Q4H PRN (Reason: wheezing,cough, or congestion) RF: 0 Flovent HFA 110 mcg/actuation HFA aerosol inhaler 2 puff Inhalation Q12H RF: 0 Restasis 0.05 % dropperette 1 drp ophthalmic (eye) BID RF: 0 CoQ-10 1 cap PO DAILY RF: 0 codeine-guaifenesin [Guaifenesin AC] 10-100 mg/5 mL liquid 10 ml PO Q4-6H PRN (Reason: cough) Qty: 120 RF: 0 magnesium 30 mg tablet 30 mg PO DAILY RF: 0 omega-3 fatty acids [Fish Oil Concentrate] 1,000 mg capsule 1,000 mg PO DAILY RF: 0 cholecalciferol (vitamin D3) 1,000 unit capsule 1,000 unit PO DAILY RF: 0 ascorbic acid (vitamin C) 500 mg capsule 500 mg PO DAILY RF: 0 meloxicam 15 mg tablet 15 mg PO DAILY Qty: 90 RF: 2 potassium 1 dose PO DAILY RF: 0 Referrals: Baljit Bishop MD [Primary Care Provider] -
[2019-01-03] MEDS: SODIUM CHLORIDE 0.9% 1,000 ML 1000 ML IV (08:33)
[2019-01-03] MEDS: methylPREDNISolone 125 MG/2 ML VIAL IV (08:33)
[2019-01-03 09:10] LABS: Add Manual Diff / Slide Review NO; Basophils Absolute Auto 0 /uL (0-100); Basophils Percent Auto 0.3 % (0-2); Eosinophils Absolute Auto 100 /uL (0-450); Eosinophils Percent Auto 1.2 % (2-4); Hematocrit 36.1 % (36-46); Hemoglobin 11.8 g/dL (12.0-16.0); Lymphocytes Absolute Auto 2300 /uL (1100-4500); Lymphocytes Percent Auto 27.9 % (25-40); Mean Corpuscular HGB Conc 32.8 % (30-36); Mean Corpuscular Hemoglobin 28.7 PG (26-34); Mean Corpuscular Volume 87.7 fL (80-100); Monocytes Absolute Auto 700 /uL (0-900); Neutrophils Absolute Auto 5100 /uL (1500-7000); Neutrophils Percent Auto 61.6 % (50-75); Platelet Count 294 X10^3/uL (150-400); Red Blood Cell Count 4.12 X10^6/uL (4.0-5.2); Red Cell Distribution Width 12.6 % (11.6-14.8); White Blood Cell Count 8.3 X10^3/uL (4.5-11.0)
[2019-01-03] MEDS: ACETAMINOPHEN 325 MG TABLET 650 MG PO (09:18)
[2019-01-03 09:22] LABS: Alanine Aminotransferase 29 IU/L (9-52); Albumin 3.9 g/dL (3.5-5.0); Albumin Globulin Ratio 1.3 (1.0-2.8); Alkaline Phosphatase 93 U/L (38-126); Aspartate Aminotransferase 26 IU/L (14-36); BUN Creatinine Ratio 25.7 (6-22); Bilirubin Total 0.3 mg/dL (0.2-1.3); Blood Urea Nitrogen 18 mg/dL (7-17); Calcium 9.1 mg/dL (8.4-10.2); Carbon Dioxide 27 mmol/L (22-32); Chloride 105 mmol/L (98-107); Creatine Kinase 60 U/L (30-135); Estimated Glomerular Filt Rate > 60.0 mL/min (>60); Glucose 112 mg/dL (80-110); HEMOLYSIS < 15 (0-50); Lactate (Lactic Acid) 2.5 mmol/L (0.7-2.1); Lipase 55 U/L (23-300); Potassium 3.2 mmol/L (3.4-5.1); Sodium 141 mmol/L (137-145); Total Protein 6.9 g/dL (6.3-8.2)
[2019-01-03 09:26] LABS: B Type Natriuretic Peptide < 100 (<100)
[2019-01-03 09:33] LABS: Troponin I < 0.012 ng/mL (0.01-0.034)
[2019-01-03 09:37] LABS: Procalcitonin < 0.05 ng/mL (<0.5)
[2019-01-03 09:38] VITALS: BP 144/56; PULSE 78; RESP 14; O2SAT 77
[2019-01-03] MEDS: POTASSIUM CHLORIDE 20 MEQ/15 ML UDC 40 MEQ PO (10:04)
[2019-01-03 10:05] VITALS: BP 162/89; PULSE 84; RESP 20; O2SAT 98
[2019-01-03 10:15] LABS: Thyroid Stimulating Hormone 2.36 uIU/mL (0.47-4.68)
[2019-01-03] MEDS: ONDANSETRON 4 MG/2 ML INJ IV (10:19)
--- NOTE | 2019-01-03 10:20 | PC.NURSE ---
C/O nausea. Meds per MD CESPEDES
[2019-01-03 10:36] LABS: HCO3 ABG 20 mmol/L (22-26); Oxygen Saturation ABG 100 % (95-100); PCO2 ABG 16.6 mmHg (35-45); PO2 ABG 148 mmHg (80-100); TCO2 ABG 21 mmol/L (21-31)
[2019-01-03 10:37] LABS: Fractionated Inspired Oxygen 0.21
--- NOTE | 2019-01-03 10:39 | DI.CT.S_ITS ---
PROCEDURE: CT ANGIO CHEST PE PROTOCOL INDICATIONS: cough, sob, resp alkalosis, symptoms x 8 wks TECHNIQUE: After the administration of intravenous contrast, 2 mm thick sections acquired from the pulmonary apices to the posterior costophrenic angles. 3-dimensional maximum intensity projection (MIP) coronal and sagittal reformats were then acquired through the thorax. For radiation dose reduction, the following was used: automated exposure control, adjustment of mA and/or kV according to patient size. COMPARISON: None. FINDINGS: Image quality: Excellent. Pulmonary arteries: Pulmonary arteries are normal in size, and demonstrate no intraluminal filling defects to suggest central pulmonary embolism. Lungs and pleura: Lungs are clear. No pleural effusions or pneumothorax. Central and peripheral airways are patent. Mediastinum: Heart size is normal, without pericardial effusion. No mediastinal or hilar adenopathy. Thoracic aorta is normal in caliber and enhancement. Scattered atheromatous calcifications are present within the aortic arch. Esophagus is normal in caliber, without hiatal hernia. Bones and chest wall: No suspicious bony lesions. Ribs and thoracic spine appear intact throughout. Degenerative changes are present throughout the thoracic spine. Thyroid gland is unremarkable. No axillary or supraclavicular adenopathy. Abdomen: A focal dense calcification is present within the posterior right hepatic lobe which has a benign appearance. Visualized upper abdominal solid organs appear normal in the early arterial phase of enhancement. IMPRESSION: No acute pulmonary embolus. Dictated by: Vidya Montano M.D. on 01/03/2019 at 11:16 Approved by: Vidya Montano M.D. on 01/03/2019 at 11:18
--- NOTE | 2019-01-03 10:44 | DI.CT.S_ITS ---
PROCEDURE: CT ABDOMEN PELVIS W CON INDICATIONS: cough, respiratory alkalosis, n, abdomina pain LLQ TECHNIQUE: After the administration of intravenous contrast, 5 mm thick sections acquired from the diaphragm to the symphysis. 5 mm coronal and sagittal reformats were acquired. For radiation dose reduction, the following was used: automated exposure control, adjustment of mA and/or kV according to patient size. COMPARISON: None. FINDINGS: Image quality: Excellent. ABDOMEN: Lung bases: Lung bases are clear. Heart size is normal. Solid organs: Liver is normal in size and enhancement. Circumscribed calcification within the posterior right hepatic lobe is redemonstrated and appears unchanged. Gallbladder is surgically absent. Biliary system is non dilated. Pancreas enhances normally. Spleen is normal in size and enhancement. No adrenal nodules. Kidneys demonstrate normal size and enhancement, without hydronephrosis. Peritoneum and bowel: Bowel loops demonstrate normal wall thickness and caliber. There are scattered atheromatous calcifications throughout the aorta and iliac arteries bilaterally. There is trace low-density free fluid within the pelvis which may be physiologic in nature. Nodes and vessels: No retroperitoneal or mesenteric adenopathy by size criteria. Aorta and inferior vena cava are normal in size. Scattered atheromatous calcific indications are present within the abdominal aorta. Miscellaneous: No ventral hernias. PELVIS: Genitourinary: Bladder wall thickness is normal. The uterus and ovaries are grossly unremarkable. Miscellaneous: No inguinal hernias or adenopathy. Bones: No suspicious bony lesions. No vertebral body compression fractures. Mild degenerative changes are present throughout the lumbar spine. IMPRESSION: 1. No acute intra-abdominal findings. Normal appendix. Dictated by: Vidya Montano M.D. on 01/03/2019 at 11:18 Approved by: Vidya Montano M.D. on 01/03/2019 at 11:21
[2019-01-03 11:00] VITALS: BP 149/66; PULSE 87; RESP 18; O2SAT 94
[2019-01-03 11:04] LABS: Reflexed Lactate in 2 Hours Y
[2019-01-03 11:30] VITALS: BP 101/58; PULSE 91; RESP 20; O2SAT 97
[2019-01-03 11:51] LABS: Lactate 2HR (Lactic Acid Rflx) 1.9 mmol/L (0.7-2.1)
== END 2019-01-03 12:31 | disposition home or self-care (01) ==
PROVIDERS: Emergency Provider Emergency Medicine; PCP Family Medicine
DX: J45.901 Unspecified asthma with (acute) exacerbation (principal); R60.9 Edema, unspecified; R06.09 Other forms of dyspnea
CPT/HCPCS: 36415; 36591; 36600; 71045; 71275; 74177; 80053; 81003; 82550; 82805; 83605; 83690; 83880; 84145; 84443; 84484; 85025; 87040; 93005; 93010; 94640; 96361; 96374; 96375; 99284; 99285; J2405; J2930; Q9967

== ENCOUNTER 2019-07-27 10:24 | Outpatient (CLI) | payer MEDICARE, OTHER, SELFPAY ==
[2019-07-27] VITALS (9 sets, daily range): BP systolic 122–152; BP diastolic 53–86; PULSE 72–85; RESP 16; TEMP 36.2; O2SAT 94–100
--- NOTE | 2019-07-27 10:25 | DI.RAD.S_ITS ---
PROCEDURE: PAIN L INTERLAMINAR/CAUDAL INJ INDICATIONS: RADICULOPATHY FINDINGS: Fluoroscopic spot filming was performed to verify placement of spinal needles at the L2-L3 level(s), as labeled on the films. Appropriate location(s) of the needle tip(s) was confirmed by injection of iodinated contrast. IMPRESSION: Fluoroscopy for pain management. Dictated by: Roman Sánchez M.D. on 07/29/2019 at 8:49 Approved by: Roman Sánchez M.D. on 07/29/2019 at 8:50
[2019-07-27] MEDS: fentaNYL 100 MCG/2 ML INJ 50 MCG IV (11:25)
[2019-07-27] MEDS: MIDAZOLAM 5 MG/5 ML VIAL IV (11:25)
[2019-07-27] MEDS: IOPAMIDOL 15 ML VIAL 3 ML INJ (11:32)
[2019-07-27] MEDS: BUPIVACAINE 0.25% (PF) VIAL 2 ML INJ (11:32)
[2019-07-27] MEDS: BETAMETHASONE 30 MG/5 ML MDV 12 MG INJ (11:33)
[2019-07-27] MEDS: DEXAMETHASONE 10 MG/ML VIAL 20 MG INJ (11:33)
--- NOTE | 2019-07-27 11:34 | PC.NURSE ---
ASSISTING PT OFF TABLE AND TRANSPORTING TO POST PROC AREA IN STABLE CONDITION. PASSING RN CARE OF PT TO MIKA Peguero RN.
--- NOTE | 2019-07-27 11:38 | P.PCN_ITS ---
Procedures Date/Time Date of procedure: 07/27/19 Time of procedure: 11:38 General Procedure description: POST OP DIAGNOSIS 1. HNP WITH RADICULAR FEATURES, 2. MULTILEVEL CENTRAL STENOSIS, PROCEDURES 1. FLUORSCOPICALLY GUIDED CONTRAST CONTROLLED INTERLAMINAR EPIDURAL STEROID INJECTION - L2/3 PHYSICIAN: Collin Parmar, INDICATIONS Hayde is referred by for treatment of Bilateral Foraminal Stenosis L>R LE symptoms. FINDINGS Multilevel Central Spinal Stenosis with Nerve Root Compression DESCRIPTION OF PROCEDURE Fluoroscopically guided, contrast-controlled L2/3 translaminar epidural steroid injection. Following review of allergy and review of potential side effects and complications, including, but not necessarily limited to, infection, allergic reaction, local tissue breakdown, temporary as well as permanent nerve injury, paralysis, stroke and possible , the patient indicated that the patient understood and agreed to proceed. An informed consent document was signed by the patient, witnessed by a nurse, and placed in the patient's chart. Additionally, other treatment options including modalities, medications, and physical therapy were reviewed with the patient. After review of previous anaesthesic history and IV conscious sedation the patient was deemed safe to proceed with todays procedure with IV conscious sedation as ASA class II designation. Safety time-out was performed to confirm patient ID, procedure to be performed and site of procedure. IV sedation was accomplished with a combination of 2mg Versed and 50mcg of Fentanyl administered by the RN after DO order, titrated to patient comfort during the course of the procedure while the patient remained responsive to all verbal commands. In the prone position, following sterile prep and drape of the lumbar region,the L2/3 translaminar space was identified fluoroscopically. The skin was anesthetized via a 25-gauge, 1.5-inch needle with 1% lidocaine solution. At this point, a 22-gauge short bevel spinal needle was atraumatically introduced and advanced under fluoroscopic guidance into the region of the L2/3 translaminar space. Depth was confirmed on lateral view. Radiological data, including multiple fluoroscopic views of the lumbar spine, reveal a spinal needle at the L2/3 translaminar space. Lateral views then show placement of the needle in the epidural space. Subsequent views show contrast material flowing superiorly and inferiorly in the epidural space. No vascular or intrathecal uptake is observed. At this point, using loss of resistance technique with saline and air, the epidural space was entered. This was confirmed following negative aspiration with injection of approximately 1.5 cc of Isovue 200, showing excellent epidural flow without vascular or intrathecal uptake. At this point, 1 cc of 1% lidocaine solution combined with 3cc or 20mg of dexamethasone and 6mg of betamethasone was injected without incident. The patient tolerated the procedure well without signs or symptoms of comp lications prior to transfer to the recovery area continued monitoring without incident. The patient was then transferred to the recovery area where they were observed for an appropriate period of time after the injection. The patient reported a VAS score of 6 prior to the procedure and a post-procedure VAS of 0. Total Fluoroscopy Time: 11.8 seconds Total Conscious Sedation Time: 24min POST OP INSTRUCTIONS The patient was provided a Pain Log to continue to record their response to the target-specific procedure prior to follow-up visit with their referring physician. Additionally, specific post-injection care instructions and a contact number to our office were provided if concerns arise regarding possible complications associated with the procedure are suspected. Collin Parmar DO Complications: none
--- NOTE | 2019-07-27 13:42 | PC.NURSE ---
Late entry: Post procedure note--Patient arived at 1140. Awake but drowsy. Hand off report received from Ada Walsh RN. VSS on arrival. O2 sat WNL. Able to transfer from w/c to recliner with stand by assist. Denied any unusual numbness or tingling to lower extremities. Discharge instructions given and explained with good understanding of patient and spouse. discharged to home w/c to car at 1225
== END 2019-07-27 12:25 | disposition home or self-care (01) ==
LOC: RAD 10:25
PROVIDERS: PCP Family Medicine; Visit Provider Physical Medicine & Rehabilitation
DX: M51.16 Intervertebral disc disorders with radiculopathy, lumbar region (principal); M48.061 Spinal stenosis, lumbar region without neurogenic claudication
CPT/HCPCS: 62323; 99152; J0702; J1100; J2250; J3010

== ENCOUNTER → 2019-09-09 12:58 | Outpatient (CLI) | payer MEDICARE, OTHER, SELFPAY ==
--- NOTE | 2019-09-09 13:00 | DI.MRI.S_ITS ---
PROCEDURE: MR SHOULDER LT WO CON INDICATIONS: Rotator cuff injury TECHNIQUE: Noncontrast oblique coronal T2 fast spin echo with fat saturation, oblique sagittal T1 spin echo and T2 fast spin echo with fat saturation, axial T1 spin echo and T2 fast spin echo with fat saturation through the shoulder. COMPARISON: CR, XR SHOULDER MIN 2VW LT, 08/29/2015, 10:11. [facility], MR, SHOULDER WITHOUT CONTRAST, 06/16/2014, 10:17. [facility], CR, XR SHOULDER MIN 2VW LT, 11/18/2016, 9:00. FINDINGS: Image quality: Excellent. Rotator cuff: There is partial thickness tear of the supraspinatus tendon near the footprint of both articular and bursal surface. Small low signal is seen around the supraspinatus tendon, consistent with tendon calcification and calcific tendinitis. There is mild thickening and T2 hyperintense signal in the infraspinatus and subscapularis tendons suggesting tendinosis. Sagittal images demonstrate no rotator cuff muscle atrophy. Bones and bursae: No bone marrow contusions or fractures. [id number] derate acromioclavicular joint degeneration. The acromion demonstrates conventional anatomy, without an os acromiale. No pathologic subacromial-subdeltoid or subcoracoid bursal fluid is present. Capsule and soft tissues: In the absence of intra-articular contrast, the labrum and glenohumeral ligaments appear intact. The long head of the biceps tendon demonstrates normal location and morphology. The rotator interval appears normal, without fibrosis. The coracohumeral ligament is normal in thickness. IMPRESSION: 1. Partial-thickness tear of the supraspinatus tendon. 2. Calcific tendinitis of the supraspinatus tendon. 3. Infraspinatus and subscapularis tendinosis. 4. Wrez-[id number] acromioclavicular joint degeneration. Dictated by: Roman Sánchez M.D. on 09/09/2019 at 14:41 Approved by: Roman Sánchez M.D. on 09/09/2019 at 16:36
== END ==
PROVIDERS: PCP Family Medicine; Visit Provider Physical Medicine & Rehabilitation
DX: S46.012A Strain of muscle(s) and tendon(s) of the rotator cuff of left shoulder, initial encounter (principal); M75.32 Calcific tendinitis of left shoulder; M19.012 Primary osteoarthritis, left shoulder; X58.XXXA Exposure to other specified factors, initial encounter
CPT/HCPCS: 73221

== ENCOUNTER 2019-09-30 13:28 | Emergency (ER) | payer MEDICARE, OTHER, SELFPAY ==
[2019-09-30] VITALS (17 sets, daily range): BP systolic 122–140; BP diastolic 54–69; PULSE 85–120; RESP 11–28; TEMP 37.4; O2SAT 85–100; BMI 30.9
--- NOTE | 2019-09-30 13:50 | DI.RAD.S_ITS ---
PROCEDURE: XR CHEST 1V INDICATIONS: suspected sepsis TECHNIQUE: One view of the chest was acquired. COMPARISON: [facility], CR, XR CHEST 1V, 01/03/2019, 8:09. FINDINGS: Surgical changes and devices: Cholecystectomy clips. Lungs and pleura: Lungs are clear. No pleural effusions or pneumothorax. Mediastinum: Mediastinal contours appear normal. Heart size is normal. Bones and chest wall: No suspicious bony lesions. Overlying soft tissues appear unremarkable. IMPRESSION: No acute cardiopulmonary disease process. Dictated by: Teresa Aldrich MD, PhD on 09/30/2019 at 14:34 Approved by: Teresa Aldrich MD, PhD on 09/30/2019 at 14:34
[2019-09-30] MEDS: SODIUM CHLORIDE 0.9% 1,000 ML 1000 ML IV (14:23)
[2019-09-30 14:26] LABS: Add Manual Diff / Slide Review NO; Basophils Absolute Auto 0 /uL (0-100); Basophils Percent Auto 0.4 % (0-2); Eosinophils Absolute Auto 100 /uL (0-450); Hematocrit 37.8 % (36-46); Hemoglobin 12.9 g/dL (12.0-16.0); Lymphocytes Absolute Auto 900 /uL (1100-4500); Lymphocytes Percent Auto 7.9 % (25-40); Mean Corpuscular HGB Conc 34.2 % (30-36); Mean Corpuscular Volume 84.9 fL (80-100); Monocytes Absolute Auto 400 /uL (0-900); Monocytes Percent Auto 3.4 % (3-14); Neutrophils Absolute Auto 9800 /uL (1500-7000); Neutrophils Percent Auto 87.3 % (50-75); Platelet Count 291 X10^3/uL (150-400); Red Blood Cell Count 4.45 X10^6/uL (4.0-5.2); Red Cell Distribution Width 12.9 % (11.6-14.8); White Blood Cell Count 11.2 X10^3/uL (4.5-11.0)
[2019-09-30 14:31] LABS: Influenza A - CEPHEID Flu A NEGATIVE (NEGATIVE); Influenza B - CEPHEID Flu B NEGATIVE (NEGATIVE)
[2019-09-30 14:33] LABS: INR 1.1 (0.9-1.3); Prothrombin Time 12.9 SECONDS (10.1-12.7)
[2019-09-30 14:36] LABS: PTT Partial Thromboplastin Tim 30 SECONDS (26.4-36.2)
[2019-09-30 14:38] LABS: Alanine Aminotransferase 20 IU/L (<35); Albumin 4.5 g/dL (3.5-5.0); Albumin Globulin Ratio 1.3 (1.0-2.8); Alkaline Phosphatase 117 U/L (38-126); Aspartate Aminotransferase 30 IU/L (14-36); BUN Creatinine Ratio 16.4 (6-22); Bilirubin Total 0.5 mg/dL (0.2-1.3); Blood Urea Nitrogen 18 mg/dL (7-17); Calcium 9.8 mg/dL (8.4-10.2); Carbon Dioxide 29 mmol/L (22-32); Chloride 99 mmol/L (98-107); Estimated Glomerular Filt Rate 49.1 mL/min (>60); Globulin 3.5 g/dL (1.7-4.1); Glucose 117 mg/dL (80-110); HEMOLYSIS < 15 (0-50); Lipase 53 U/L (23-300); Sodium 138 mmol/L (137-145)
[2019-09-30 14:39] LABS: Lactate (Lactic Acid) 1.2 mmol/L (0.7-2.1)
[2019-09-30 14:57] LABS: Procalcitonin 0.07 ng/mL (<0.5)
--- NOTE | 2019-09-30 15:06 | DI.US.S_ITS ---
PROCEDURE: US RENAL COMPLETE INDICATIONS: RECENT UTI, FLANK PAIN, TACHYCARDIA TECHNIQUE: Real-time scanning was performed of the kidneys and bladder, with image documentation. COMPARISON: [facility], CT, CT ABDOMEN PELVIS W CON, 01/03/2019, 10:56. FINDINGS: Kidneys: The superior and inferior margins of the left kidney are obscured by overlying bowel. Kidneys are normal in size. Right kidney measures 10.1 cm long; left kidney measures 10.1 cm long. Right renal cortical thickness is 1.3 cm; left renal cortical thickness is 1.5 cm. Renal cortical echotexture is normal. No hydronephrosis or shadowing nephrolithiasis. No suspicious solid mass lesions. Bladder: The urinary bladder is relatively decompressed. No bladder calculi are evident. No significant wall thickening is appreciated. The patient was unable to void at the time of the study. Bilateral ureteral jets were witnessed. Miscellaneous: No free pelvic fluid. IMPRESSION: No hydronephrosis or shadowing nephrolithiasis. Dictated by: Miguel Jones M.D. on 09/30/2019 at 15:59 Approved by: Miguel Jones M.D. on 09/30/2019 at 16:01
[2019-09-30] MEDS: MORPHINE 2 MG/ML INJ IV (15:15)
--- NOTE | 2019-09-30 15:18 | ED.ABDPAIN ---
HPI - Abdominal Pain <DARYA Romero - Last Filed: 10/01/19 00:27> General Chief Complaint: Abdominal Pain Stated Complaint: UTI, states diagnosed with Influenza Time Seen by Provider: 09/30/19 13:51 Source: patient Mode of arrival: Ambulatory Limitations: no limitations History of Present Illness HPI narrative: This is 68-year-old female, nonsmoker, who presents to ED with spouse with chief complain of chills, sweats, nausea, dizziness, generalize body aches, abdominal pain, right flank pain for almost 2 weeks. Patient was recently diagnosed noticed with UTI about a week ago and she was prescribed with antibiotic medication and she is almost done with nitrofurantoin for 7 day course that was prescribed by her primary care physician in [place]. Patient had a burning on urination and dizziness about a week ago before visiting her PCP. Patient reports she has been hydrating herself well and felt better yesterday but today she is feeling worse with above symptom patient reports right Kidney hurts describes as stabbing pain. She still has discomfort with urination. 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 Related Data Home Medications Medication Instructions Recorded Confirmed magnesium 30 mg tablet 30 mg PO DAILY 04/24/18 09/30/19 omega-3 fatty acids 1,000 mg 1,000 mg PO DAILY 04/24/18 09/30/19 capsule ascorbic acid (vitamin C) 500 mg 500 mg PO DAILY cap 06/11/18 09/30/19 capsule cholecalciferol (vitamin D3) 25 1,000 unit PO DAILY 06/11/18 09/30/19 mcg (1,000 unit) capsule CoQ-10 1 cap PO DAILY 12/01/18 09/30/19 albuterol sulfate [ProAir HFA] 2 puff INHALATION Q4H PRN 12/01/18 09/30/19 triamterene-hydrochlorothiazid 1 tab PO DAILY 12/01/18 09/30/19 calcium 1 tab PO DAILY 06/23/19 09/30/19 ibuprofen 200 mg capsule 200 mg PO BID cap 06/23/19 09/30/19 [id number] 1 tab PO TID 06/23/19 09/30/19 vitafusion 1 dose PO DAILY 06/23/19 09/30/19 biotin 1 tab PO DAILY 09/30/19 09/30/19 cyclosporine [Restasis] 1 drp OPHTHALMIC (EYE) DIRECTED 09/30/19 09/30/19 nitrofurantoin monohyd/m-cryst 100 mg PO BID 09/30/19 09/30/19 omeprazole 20 mg PO BID 09/30/19 09/30/19 potassium chloride [Klor-Con 10] 10 meq PO DAILY 09/30/19 09/30/19 Previous Rx's Medication Instructions Recorded cephalexin [Keflex] 500 mg PO BID 7 Days #14 cap 09/30/19 ondansetron 4 mg PO Q6-8H PRN 4 Days #10 tab 09/30/19 hydrocodone-acetaminophen [[place]] 1 tab PO Q12H PRN #7 tab 10/01/19 Allergies Allergy/AdvReac Type Severity Reaction Status Date / Time chocolate flavor Allergy Intermediate INCREASED Verified 09/30/19 13:47 [CHOCOLATE FLAVOR] HR, HEADACHE Penicillins [PENICILLINS] Allergy Intermediate HIVES Verified 09/30/19 13:47 oxycodone [OXYCODONE] AdvReac Intermediate N/V, Verified 09/30/19 13:47 HEADACHE Review of Systems <DARYA Romero - Last Filed: 10/01/19 00:27> Review of Systems Narrative: General: Reports fever, chills, fatigue, malaise, sweaty HEENT: Denies sinus pain, ear pain, sore throat, difficulty swallowing, dizziness. Respiratory: Denies dyspnea, cough, wheezing, hemoptysis, sputum. Cardiovascular: Denies chest pain, palpitations, orthopnea, edema. Gastrointestinal: Denies (+) nausea, vomiting, (+) abdominal pain, diarrhea, constipation, melena. : Denies (+) dysuria, frequency, incontinence, hematuria, urinary retention. Musculoskeletal: Generalized body aches and right flank pain. Skin: Denies rash, skin lesions, or other. Neurologic: Denies (+) generalized weakness, headache, numbness, change in speech, confusion, seizures, incoordination. Psychiatric: No concerning psychosocial issues. 12-point review of systems is negative except for those stated above. Patient History <DARYA Romero - Last Filed: 10/01/19 00:27> Medical History Asthma (Chronic) Hypertension (Acute) Surgical History History of back surgery (Chronic) History of cholecystectomy (Chronic) Family History Father Lung cancer Emphysema (subcutaneous) (surgical) resulting from a procedure Mother Congestive heart failure Social History marital status: Smoking Status: Never smoker alcohol intake: current substance use type: does not use Smoking Status: Never smoker Substance Use Type: does not use Exam <DARYA Romero - Last Filed: 10/01/19 00:27> Narrative Exam Narrative: GEN: Alert, oriented x 3, ill appearing, nourished, and in mild distress. Head: Normal cephalic, atraumatic. No scalp or temporal tenderness, palpable mass or rash. EYES: Pupils are equal, round, and reactive to light and accommodation. Extraocular muscles are intact bilaterally. There is no subconjunctival hemorrhage, exudate and sclera non-icteric. ENT: Hearing grossly intact. Nose without bleeding, purulent discharge or deviation. Mucous membrane moist, no mucosal lesion. Throat without erythema, tonsillar hypertrophy or exudate. Uvula in midline, airway patent. Neck: Trachea in midline. No JVD, non-tender without lymphadenopathy. No masses or thyroid megaly. Supple, non-tender and no meningeal signs. CARDIAC: Normal tachy rhythm and rate without murmurs, gallops, or rubs. No chest wall tenderness. No peripheral edema, cyanosis or pallor. Capillary refill is less than 2 seconds. RESPIRATORY: Lungs are clear to auscultate bilaterally. No cough, wheezes, rales, or rhonchi. No stridor, respiratory distress, increase work of breathing, or accessary muscle used. ABD: Abdomen soft, suprapubic tender to palpte and non-distended. No guarding or rebound tenderness to palpate. Bowel sounds are normal in all 4 quadrants. There is no palpable masses or organomegaly. EXT: Full ROM of all extremities with no loss of sensation, strength, effusion or edema. SKIN: Hot, dry, normal color for patient. No erythema, lesions or rash over visible areas. BACK: Nontender without deformity or crepitance. Right flank tenderness to percuss. NEUROLOGICAL: Alert and oriented to place, time and person. Sensation and motor function intact bilaterally. No facial droops, dysphasia. PSYCHIATRIC: Good judgement and reason, without hallucinations, abnormal affect or abnormal behaviors during the examination. Initial Vital Signs Initial Vital Signs: Vital Signs Temperature 99.3 F 09/30/19 13:32 Pulse Rate 120 H 09/30/19 13:32 Respiratory Rate 16 09/30/19 13:32 Blood Pressure 131/69 09/30/19 13:32 Pulse Oximetry 98 09/30/19 13:32 <Yadira Parks DO - Last Filed: 10/01/19 20:35> Initial Vital Signs Initial Vital Signs: Vital Signs Temperature 99.3 F 09/30/19 13:32 Pulse Rate 120 H 09/30/19 13:32 Respiratory Rate 16 09/30/19 13:32 Blood Pressure 131/69 09/30/19 13:32 Pulse Oximetry 98 09/30/19 13:32 Scores <DARYA Romero - Last Filed: 10/01/19 00:27> GCS Dipak coma scale eye opening: Spontaneous Mayer coma scale verbal response: Orientated Mayer coma scale motor response: Obey commands Dipak coma scale total score: 15 qSOFA Altered Mental Status (GCS <15): No Respiratory rate greater than/equal to 22: No Systolic blood pressure less than or equal to 100: No qSOFA Total: 0 0-1 Not High Risk 1-3 High risk Citation:: Not meeting the SIRS criteria. Course <DARYA Romero - Last Filed: 10/01/19 00:27> Orders Ordered: Discontinued Medications Hydrocodone Bitart/Acetaminophen ([place] 5/325) 1 tab PO NOW ONE Stop: 09/30/19 19:05 Last Admin: 09/30/19 19:15 Dose: 1 tab Documented by: DIANE Sodium Chloride (Normal Saline 0.9%) 1,000 mls @ 1,000 mls/hr IV BOLUS ONE Stop: 09/30/19 14:49 Last Infusion: 09/30/19 16:03 Dose: 0 mls/hr Documented by: Admin: 09/30/19 14:23 Dose: 1,000 mls/hr Documented by: DIANE Sodium Chloride (Normal Saline 0.9%) 1,000 mls @ 125 mls/hr IV BOLUS ONE Stop: 10/01/19 00:03 Last Infusion: 09/30/19 19:55 Dose: 125 mls/hr Documented by: Admin: 09/30/19 16:05 Dose: 125 mls/hr Documented by: DIANE Ceftriaxone Sodium/Dextrose (Rocephin) 2 gm in 50 mls @ 100 mls/hr IV NOW ONE Stop: 09/30/19 17:08 Last Infusion: 09/30/19 17:43 Dose: 0 mls/hr Documented by: Admin: 09/30/19 17:09 Dose: 100 mls/hr Documented by: DIANE Morphine Sulfate (Morphine) 2 mg IV NOW ONE Stop: 09/30/19 15:11 Last Admin: 09/30/19 15:15 Dose: 2 mg Documented by: WENDI Morphine Sulfate (Morphine) 4 mg IV NOW ONE Stop: 09/30/19 16:14 Last Admin: 09/30/19 16:16 Dose: 4 mg Documented by: DIANE Ondansetron HCl (Zofran) 4 mg IV NOW ONE Stop: 09/30/19 16:13 Last Admin: 09/30/19 16:16 Dose: 4 mg Documented by: DIANE Ondansetron HCl (Zofran) 4 mg IV NOW ONE Stop: 09/30/19 19:17 Last Admin: 09/30/19 19:19 Dose: 4 mg Documented by: DIANE Vital Signs Vital signs: Vital Signs - 8 hr 09/30/19 16:30 09/30/19 16:55 09/30/19 16:56 Pulse Rate 91 H Respiratory Rate 16 17 20 Blood Pressure Blood Pressure [Left Arm] 129/60 127/59 L 127/59 L Pulse Oximetry 85 L 88 L 99 09/30/19 17:00 09/30/19 17:30 09/30/19 18:00 Pulse Rate Respiratory Rate 17 11 L 19 Blood Pressure Blood Pressure [Left Arm] 123/57 L 124/57 L 126/58 L Pulse Oximetry 88 L 97 98 09/30/19 18:05 09/30/19 19:51 Pulse Rate 90 85 Respiratory Rate 21 22 Blood Pressure 122/54 L Blood Pressure [Left Arm] 126/58 L Pulse Oximetry 96 100 <aYdira Parks, DO - Last Filed: 10/01/19 20:35> Orders Ordered: Discontinued Medications Hydrocodone Bitart/Acetaminophen ([place] 5/325) 1 tab PO NOW ONE Stop: 09/30/19 19:05 Last Admin: 09/30/19 19:15 Dose: 1 tab Documented by: DIANE Sodium Chloride (Normal Saline 0.9%) 1,000 mls @ 1,000 mls/hr IV BOLUS ONE Stop: 09/30/19 14:49 Last Infusion: 09/30/19 16:03 Dose: 0 mls/hr Documented by: Admin: 09/30/19 14:23 Dose: 1,000 mls/hr Documented by: DIANE Sodium Chloride (Normal Saline 0.9%) 1,000 mls @ 125 mls/hr IV BOLUS ONE Stop: 10/01/19 00:03 Last Infusion: 09/30/19 19:55 Dose: 125 mls/hr Documented by: Admin: 09/30/19 16:05 Dose: 125 mls/hr Documented by: DIANE Ceftriaxone Sodium/Dextrose (Rocephin) 2 gm in 50 mls @ 100 mls/hr IV NOW ONE Stop: 09/30/19 17:08 Last Infusion: 09/30/19 17:43 Dose: 0 mls/hr Documented by: Admin: 09/30/19 17:09 Dose: 100 mls/hr Documented by: DIANE Morphine Sulfate (Morphine) 2 mg IV NOW ONE Stop: 09/30/19 15:11 Last Admin: 09/30/19 15:15 Dose: 2 mg Documented by: WENDI Morphine Sulfate (Morphine) 4 mg IV NOW ONE Stop: 09/30/19 16:14 Last Admin: 09/30/19 16:16 Dose: 4 mg Documented by: DIANE Ondansetron HCl (Zofran) 4 mg IV NOW ONE Stop: 09/30/19 16:13 Last Admin: 09/30/19 16:16 Dose: 4 mg Documented by: DIANE Ondansetron HCl (Zofran) 4 mg IV NOW ONE Stop: 09/30/19 19:17 Last Admin: 09/30/19 19:19 Dose: 4 mg Documented by: DIANE Vital Signs Vital signs: Vital Signs - 8 hr 09/30/19 16:30 09/30/19 16:55 09/30/19 16:56 Pulse Rate 91 H Respiratory Rate 16 17 20 Blood Pressure Blood Pressure [Left Arm] 129/60 127/59 L 127/59 L Pulse Oximetry 85 L 88 L 99 09/30/19 17:00 09/30/19 17:30 09/30/19 18:00 Pulse Rate Respiratory Rate 17 11 L 19 Blood Pressure Blood Pressure [Left Arm] 123/57 L 124/57 L 126/58 L Pulse Oximetry 88 L 97 98 09/30/19 18:05 09/30/19 19:51 Pulse Rate 90 85 Respiratory Rate 21 22 Blood Pressure 122/54 L Blood Pressure [Left Arm] 126/58 L Pulse Oximetry 96 100 MDM - Abdominal Pain <DARYA Romero - Last Filed: 10/01/19 00:27> Differential Diagnosis Differential diagnosis: Likely abdominal pain and other (Flu, pyelonephritis) Medical Records Attestation: I reviewed the patient's medical records. Lab Data Attestation: I reviewed the patient's lab results. Result diagrams: 09/30/19 14:18 09/30/19 14:18 Labs: Lab Results 09/30/19 09/30/19 09/30/19 Range/Units 13:50 13:54 14:18 WBC 11.2 H (4.5-11.0) X10^3/uL RBC 4.45 (4.0-5.2) X10^6/uL Hgb 12.9 (12.0-16.0) g/dL Hct 37.8 (36-46) % MCV 84.9 (80-100) fL MCH 29.0 (26-34) PG MCHC 34.2 (30-36) % RDW 12.9 (11.6-14.8) % Plt Count 291 (150-400) X10^3/uL Neut % (Auto) 87.3 H (50-75) % Lymph % (Auto) 7.9 L (25-40) % Davis % (Auto) 3.4 (3-14) % Eos % (Auto) 1.0 L (2-4) % Baso % (Auto) 0.4 (0-2) % Neut # (Auto) 9800 H (5810-9644) /uL Lymph # (Auto) 900 L (5841-4343) /uL Davis # (Auto) 400 (0-900) /uL Eos # (Auto) 100 (0-450) /uL Baso # (Auto) 0 (0-100) /uL PT (10.1-12.7) SECONDS INR (0.9-1.3) APTT (26.4-36.2) SECONDS Sodium (137-145) mmol/L Potassium (3.4-5.1) mmol/L Chloride (98-107) mmol/L Carbon Dioxide (22-32) mmol/L BUN (7-17) mg/dL Creatinine (0.52-1.04) mg/dL Estimated GFR (>60) mL/min BUN/Creatinine Ratio (6-22) Glucose (80-110) mg/dL Lactate (0.7-2.1) mmol/L Calcium (8.4-10.2) mg/dL Total Bilirubin (0.2-1.3) mg/dL AST (14-36) IU/L ALT (<35) IU/L Alkaline Phosphatase (38-126) U/L Total Protein (6.3-8.2) g/dL Albumin (3.5-5.0) g/dL Globulin (1.7-4.1) g/dL Albumin/Globulin Ratio (1.0-2.8) Lipase (23-300) U/L Procalcitonin (<0.5) ng/mL Urine RBC None seen (0-5/HPF) Urine WBC 5-10/hpf H (0-5/HPF) Ur Squamous Epith Cells 10-30 /hpf H (0-5/HPF) Ur Transition Epith Cell 1-5/hpf (0-5/HPF) Ur Renal Epithelial Cell 10-20/hpf H (0-1/HPF) Urine Bacteria None seen (None) Ur Culture Indicated? Cult not indicated Influenza A (RT-PCR) Flu a negative (NEGATIVE) Influenza B (RT-PCR) Flu b negative (NEGATIVE) 09/30/19 09/30/19 09/30/19 Range/Units 14:18 14:18 14:18 WBC (4.5-11.0) X10^3/uL RBC (4.0-5.2) X10^6/uL Hgb (12.0-16.0) g/dL Hct (36-46) % MCV (80-100) fL MCH (26-34) PG MCHC (30-36) % RDW (11.6-14.8) % Plt Count (150-400) X10^3/uL Neut % (Auto) (50-75) % Lymph % (Auto) (25-40) % Davis % (Auto) (3-14) % Eos % (Auto) (2-4) % Baso % (Auto) (0-2) % Neut # (Auto) (3181-9779) /uL Lymph # (Auto) (5258-1505) /uL Davis # (Auto) (0-900) /uL Eos # (Auto) (0-450) /uL Baso # (Auto) (0-100) /uL PT 12.9 H (10.1-12.7) SECONDS INR 1.1 (0.9-1.3) APTT 30 D (26.4-36.2) SECONDS Sodium 138 (137-145) mmol/L Potassium 4.0 (3.4-5.1) mmol/L Chloride 99 (98-107) mmol/L Carbon Dioxide 29 (22-32) mmol/L BUN 18 H (7-17) mg/dL Creatinine 1.10 H (0.52-1.04) mg/dL Estimated GFR 49.1 L (>60) mL/min BUN/Creatinine Ratio 16.4 (6-22) Glucose 117 H (80-110) mg/dL Lactate (0.7-2.1) mmol/L Calcium 9.8 (8.4-10.2) mg/dL Total Bilirubin 0.5 (0.2-1.3) mg/dL AST 30 (14-36) IU/L ALT 20 (<35) IU/L Alkaline Phosphatase 117 (38-126) U/L Total Protein 8.0 (6.3-8.2) g/dL Albumin 4.5 (3.5-5.0) g/dL Globulin 3.5 (1.7-4.1) g/dL Albumin/Globulin Ratio 1.3 (1.0-2.8) Lipase 53 (23-300) U/L Procalcitonin 0.07 (<0.5) ng/mL Urine RBC (0-5/HPF) Urine WBC (0-5/HPF) Ur Squamous Epith Cells (0-5/HPF) Ur Transition Epith Cell (0-5/HPF) Ur Renal Epithelial Cell (0-1/HPF) Urine Bacteria (None) Ur Culture Indicated? Influenza A (RT-PCR) (NEGATIVE) Influenza B (RT-PCR) (NEGATIVE) 09/30/19 Range/Units 14:18 WBC (4.5-11.0) X10^3/uL RBC (4.0-5.2) X10^6/uL Hgb (12.0-16.0) g/dL Hct (36-46) % MCV (80-100) fL MCH (26-34) PG MCHC (30-36) % RDW (11.6-14.8) % Plt Count (150-400) X10^3/uL Neut % (Auto) (50-75) % Lymph % (Auto) (25-40) % Davis % (Auto) (3-14) % Eos % (Auto) (2-4) % Baso % (Auto) (0-2) % Neut # (Auto) (1083-1496) /uL Lymph # (Auto) (2132-7980) /uL Davis # (Auto) (0-900) /uL Eos # (Auto) (0-450) /uL Baso # (Auto) (0-100) /uL PT (10.1-12.7) SECONDS INR (0.9-1.3) APTT (26.4-36.2) SECONDS Sodium (137-145) mmol/L Potassium (3.4-5.1) mmol/L Chloride (98-107) mmol/L Carbon Dioxide (22-32) mmol/L BUN (7-17) mg/dL Creatinine (0.52-1.04) mg/dL Estimated GFR (>60) mL/min BUN/Creatinine Ratio (6-22) Glucose (80-110) mg/dL Lactate 1.2 (0.7-2.1) mmol/L Calcium (8.4-10.2) mg/dL Total Bilirubin (0.2-1.3) mg/dL AST (14-36) IU/L ALT (<35) IU/L Alkaline Phosphatase (38-126) U/L Total Protein (6.3-8.2) g/dL Albumin (3.5-5.0) g/dL Globulin (1.7-4.1) g/dL Albumin/Globulin Ratio (1.0-2.8) Lipase (23-300) U/L Procalcitonin (<0.5) ng/mL Urine RBC (0-5/HPF) Urine WBC (0-5/HPF) Ur Squamous Epith Cells (0-5/HPF) Ur Transition Epith Cell (0-5/HPF) Ur Renal Epithelial Cell (0-1/HPF) Urine Bacteria (None) Ur Culture Indicated? Influenza A (RT-PCR) (NEGATIVE) Influenza B (RT-PCR) (NEGATIVE) Point of care testing: Urine Dip Bedside Urine Glucose Negative Bedside Urine Bilirubin - Negative Bedside Urine Ketone - Negative Bedside Urine Occult Blood - Negative Bedside Urine Protein - Negative Bedside Urine Urobilinogen - Negative Bedside Urine Nitrite - Negative Bedside Urine Leukocytes +++ 500 Esterase Imaging Data Chest x-ray: Radiologist's Impression: [address] [id number] XRay Report Signed Patient: Hayde Mensah LMR#: [id number] : 9Acct:[id number] Age/Sex: 68 / FDate of Service: 09/30/19 Loc: ED Accession Number: [id number] Procedure: XR chest 1V Ordering Provider: Melly Temple D.O. PROCEDURE: XR CHEST 1V INDICATIONS: suspected sepsis TECHNIQUE: One view of the chest was acquired. COMPARISON: [facility], [facility], XR CHEST 1V, 01/03/2019, 8:09. FINDINGS: Surgical changes and devices: Cholecystectomy clips. Lungs and pleura: Lungs are clear. No pleural effusions or pneumothorax. Mediastinum: Mediastinal contours appear normal. Heart size is normal. Bones and chest wall: No suspicious bony lesions. Overlying soft tissues appear unremarkable. IMPRESSION: No acute cardiopulmonary disease process. Dictated by: Teresa Aldrich MD, PhD on 09/30/2019 at 14:34 Approved by: Teresa Aldrich MD, PhD on 09/30/2019 at 14:34 CT scan - abdomen/pelvis: Radiologist's Impression: [address] [address] [address] Scan Report Signed Patient: Hayde Mensah LMR#: [id number] : 9Acct:[id number] Age/Sex: 68 / FDate of Service: 09/30/19 Loc: ED Accession Number: [id number] Procedure: CT abdomen pelvis w con Ordering Provider: Jose C Lee PROCEDURE: CT ABDOMEN PELVIS W CON INDICATIONS: abd pain, flank pain, nausea, recent UTI, worsening sx TECHNIQUE: After the administration of intravenous contrast, 5 mm thick sections acquired from the diaphragm to the symphysis. 5 mm coronal and sagittal reformats were acquired. For radiation dose reduction, the following was used: automated exposure control, adjustment of mA and/or kV according to patient size. COMPARISON: [facility], CT, CT ABDOMEN PELVIS W CON, 01/03/2019, 10:56. FINDINGS: Image quality: Excellent. ABDOMEN: Lung bases: Lung bases are clear. Heart size is normal. Solid organs: Liver is normal in size and enhancement. 1.7 cm rounded, coarse calcification in the posterior-superior subsegment of the right lobe of liver is stable compared to the prior exam. Gallbladder is surgically absent. Biliary system is non dilated. Pancreas enhances normally. Spleen is normal in size and enhancement. No adrenal nodules. Kidneys demonstrate normal size and enhancement, without hydronephrosis. Peritoneum and bowel: Bowel loops demonstrate normal wall thickness and caliber. No free fluid or air. The appendix is normal. Nodes and vessels: No retroperitoneal or mesenteric adenopathy by size criteria. Aorta and inferior vena cava are normal in size. Scattered atherosclerotic calcifications involving the abdominal and pelvic vasculature. Miscellaneous: Small fat-containing umbilical hernia. PELVIS: Genitourinary: Bladder wall thickness is normal. Uterus and ovaries are within normal limits. Miscellaneous: No inguinal hernias or adenopathy. Bones: No suspicious bony lesions. No vertebral body compression fractures. Spine degenerative disc disease and facet arthropathy. IMPRESSION: 1. No acute disease process. 2. No free fluid free air. 3. No dilated loops of bowel. 4. No evidence of appendicitis. Dictated by: Teresa Aldrich MD, PhD on 09/30/2019 at 16:58 Approved by: Teresa Aldrich MD, PhD on 09/30/2019 at 17:03 US-Renal: Radiologist's Impression: [address] [address] Ultrasound Report Signed Patient: Hayde Mensah LMR#: [id number] : 9Acct:[id number] Age/Sex: 68 / FDate of Service: 09/30/19 Loc: ED Accession Number: [id number] Procedure: US renal complete Ordering Provider: Jose C Lee PROCEDURE: US RENAL COMPLETE INDICATIONS: RECENT UTI, FLANK PAIN, TACHYCARDIA TECHNIQUE: Real-time scanning was performed of the kidneys and bladder, with image documentation. COMPARISON: [facility], CT, CT ABDOMEN PELVIS W CON, 01/03/2019, 10:56. FINDINGS: Kidneys: The superior and inferior margins of the left kidney are obscured by overlying bowel. Kidneys are normal in size. Right kidney measures 10.1 cm long; left kidney measures 10.1 cm long. Right renal cortical thickness is 1.3 cm; left renal cortical thickness is 1.5 cm. Renal cortical echotexture is normal. No hydronephrosis or shadowing nephrolithiasis. No suspicious solid mass lesions. Bladder: The urinary bladder is relatively decompressed. No bladder calculi are evident. No significant wall thickening is appreciated. The patient was unable to void at the time of the study. Bilateral ureteral jets were witnessed. Miscellaneous: No free pelvic fluid. IMPRESSION: No hydronephrosis or shadowing nephrolithiasis. Dictated by: Miguel Jones M.D. on 09/30/2019 at 15:59 Approved by: Miguel Jones M.D. on 09/30/2019 at 16:01 ECG Data Attestation: I personally reviewed and interpreted this ECG as follows: Prior ECG tracings: available for review Interpretation: ST rate at 115 L axis dominat No ST elevation P are interval 143, normal QRS duration, QT/QTC 342/[address] wave abnormality NO signinficant changes from previous EKG. MDM Narrative Medical decision making narrative: This is a 68-year-old female who is being treated for UTI with nitrofurantoin (is on her 6th day of total 7 day course) who presents to ED with not improving symptoms. Patient complain of suprapubic discomfort with right flank pain, nausea, generalized body aches and subjective chills and fever. Patient's clinic has been contacted for urine culture were results which was not available at this time. It is likely this has not been done at the time. Mild leukocytosis of 11.2 with neutrophil of 87.3%. Today's kidney function test was decreased. Creatinine of 1.1, GFR of 49.1 today. The patient's previous kidney function on 05/27/2019 was within normal result of creatinine of 0.9 with GFR of 62. POC Urine shows +++ Leuk with Negative Nitrite. Urine micro tests shows 5-10/hpf urine WBC, 10-20/hpf Urine renal epithelial cell and moderate squamous epithelia cells. Urine culture is pending. Negative Flu swab, it was obtained since the patient has generalized body aches, subjective chills and fever. Normal liver function test. Normal procalcitonin with lactate. Patient was hydrated with 1 L of normal saline fluid and IV Zofran and morphine for her symptoms which improved a bit. Ultrasound test does not show hydronephrosis, mass, nephrolithiasis with normal bladder wall thickening. There was no free pelvic fluid appreciated. Dr. Bird was consulted for observation admission and was requested for CT of Abd/Pelvis which showed unremarkable result. Dr. Bird called back and the patient's admission was not accepted since patient's lab test results are unremarkable with stable vital signs and does not exhibit sepsis this time. Tachycardia improved to 85 and patient has been afebrile with normal tensive. It was suggested to prolonged patient's current prescription for another week, change antibiotic medication to other antimicrobial agents for a week. Patient was treated with 2 g of IV Rocephin while in ED and discharged to home with Keflex 500 mg b.i.d. for 7 day course. Small dose of Zofran provide for home use. Return precautions were discussed with the patient and patient instructed to follow up with PCP in 2-3 days. Patient verbalized understanding and agrees with treatment plan. Patient was medicated with additional IV Zofran prior dc to home and [place]. When attempted to discharge patient to home, patient complained of recurring pain and nausea. Small dose of [place] for home is transmitted to [facility] pharmacy. <Yadira Vik Parks, DO - Last Filed: 10/01/19 20:35> Lab Data Labs: Lab Results 09/30/19 09/30/19 09/30/19 Range/Units 13:50 13:54 14:18 WBC 11.2 H (4.5-11.0) X10^3/uL RBC 4.45 (4.0-5.2) X10^6/uL Hgb 12.9 (12.0-16.0) g/dL Hct 37.8 (36-46) % MCV 84.9 (80-100) fL MCH 29.0 (26-34) PG MCHC 34.2 (30-36) % RDW 12.9 (11.6-14.8) % Plt Count 291 (150-400) X10^3/uL Neut % (Auto) 87.3 H (50-75) % Lymph % (Auto) 7.9 L (25-40) % Davis % (Auto) 3.4 (3-14) % Eos % (Auto) 1.0 L (2-4) % Baso % (Auto) 0.4 (0-2) % Neut # (Auto) 9800 H (7446-6390) /uL Lymph # (Auto) 900 L (9185-4729) /uL Davis # (Auto) 400 (0-900) /uL Eos # (Auto) 100 (0-450) /uL Baso # (Auto) 0 (0-100) /uL PT (10.1-12.7) SECONDS INR (0.9-1.3) APTT (26.4-36.2) SECONDS Sodium (137-145) mmol/L Potassium (3.4-5.1) mmol/L Chloride (98-107) mmol/L Carbon Dioxide (22-32) mmol/L BUN (7-17) mg/dL Creatinine (0.52-1.04) mg/dL Estimated GFR (>60) mL/min BUN/Creatinine Ratio (6-22) Glucose (80-110) mg/dL Lactate (0.7-2.1) mmol/L Calcium (8.4-10.2) mg/dL Total Bilirubin (0.2-1.3) mg/dL AST (14-36) IU/L ALT (<35) IU/L Alkaline Phosphatase (38-126) U/L Total Protein (6.3-8.2) g/dL Albumin (3.5-5.0) g/dL Globulin (1.7-4.1) g/dL Albumin/Globulin Ratio (1.0-2.8) Lipase (23-300) U/L Procalcitonin (<0.5) ng/mL Urine RBC None seen (0-5/HPF) Urine WBC 5-10/hpf H (0-5/HPF) Ur Squamous Epith Cells 10-30 /hpf H (0-5/HPF) Ur Transition Epith Cell 1-5/hpf (0-5/HPF) Ur Renal Epithelial Cell 10-20/hpf H (0-1/HPF) Urine Bacteria None seen (None) Ur Culture Indicated? Cult not indicated Influenza A (RT-PCR) Flu a negative (NEGATIVE) Influenza B (RT-PCR) Flu b negative (NEGATIVE) 09/30/19 09/30/19 09/30/19 Range/Units 14:18 14:18 14:18 WBC (4.5-11.0) X10^3/uL RBC (4.0-5.2) X10^6/uL Hgb (12.0-16.0) g/dL Hct (36-46) % MCV (80-100) fL MCH (26-34) PG MCHC (30-36) % RDW (11.6-14.8) % Plt Count (150-400) X10^3/uL Neut % (Auto) (50-75) % Lymph % (Auto) (25-40) % Davis % (Auto) (3-14) % Eos % (Auto) (2-4) % Baso % (Auto) (0-2) % Neut # (Auto) (1048-6213) /uL Lymph # (Auto) (1498-2328) /uL Davis # (Auto) (0-900) /uL Eos # (Auto) (0-450) /uL Baso # (Auto) (0-100) /uL PT 12.9 H (10.1-12.7) SECONDS INR 1.1 (0.9-1.3) APTT 30 D (26.4-36.2) SECONDS Sodium 138 (137-145) mmol/L Potassium 4.0 (3.4-5.1) mmol/L Chloride 99 (98-107) mmol/L Carbon Dioxide 29 (22-32) mmol/L BUN 18 H (7-17) mg/dL Creatinine 1.10 H (0.52-1.04) mg/dL Estimated GFR 49.1 L (>60) mL/min BUN/Creatinine Ratio 16.4 (6-22) Glucose 117 H (80-110) mg/dL Lactate (0.7-2.1) mmol/L Calcium 9.8 (8.4-10.2) mg/dL Total Bilirubin 0.5 (0.2-1.3) mg/dL AST 30 (14-36) IU/L ALT 20 (<35) IU/L Alkaline Phosphatase 117 (38-126) U/L Total Protein 8.0 (6.3-8.2) g/dL Albumin 4.5 (3.5-5.0) g/dL Globulin 3.5 (1.7-4.1) g/dL Albumin/Globulin Ratio 1.3 (1.0-2.8) Lipase 53 (23-300) U/L Procalcitonin 0.07 (<0.5) ng/mL Urine RBC (0-5/HPF) Urine WBC (0-5/HPF) Ur Squamous Epith Cells (0-5/HPF) Ur Transition Epith Cell (0-5/HPF) Ur Renal Epithelial Cell (0-1/HPF) Urine Bacteria (None) Ur Culture Indicated? Influenza A (RT-PCR) (NEGATIVE) Influenza B (RT-PCR) (NEGATIVE) 09/30/19 Range/Units 14:18 WBC (4.5-11.0) X10^3/uL RBC (4.0-5.2) X10^6/uL Hgb (12.0-16.0) g/dL Hct (36-46) % MCV (80-100) fL MCH (26-34) PG MCHC (30-36) % RDW (11.6-14.8) % Plt Count (150-400) X10^3/uL Neut % (Auto) (50-75) % Lymph % (Auto) (25-40) % Davis % (Auto) (3-14) % Eos % (Auto) (2-4) % Baso % (Auto) (0-2) % Neut # (Auto) (5397-4942) /uL Lymph # (Auto) (5141-4730) /uL Davis # (Auto) (0-900) /uL Eos # (Auto) (0-450) /uL Baso # (Auto) (0-100) /uL PT (10.1-12.7) SECONDS INR (0.9-1.3) APTT (26.4-36.2) SECONDS Sodium (137-145) mmol/L Potassium (3.4-5.1) mmol/L Chloride (98-107) mmol/L Carbon Dioxide (22-32) mmol/L BUN (7-17) mg/dL Creatinine (0.52-1.04) mg/dL Estimated GFR (>60) mL/min BUN/Creatinine Ratio (6-22) Glucose (80-110) mg/dL Lactate 1.2 (0.7-2.1) mmol/L Calcium (8.4-10.2) mg/dL Total Bilirubin (0.2-1.3) mg/dL AST (14-36) IU/L ALT (<35) IU/L Alkaline Phosphatase (38-126) U/L Total Protein (6.3-8.2) g/dL Albumin (3.5-5.0) g/dL Globulin (1.7-4.1) g/dL Albumin/Globulin Ratio (1.0-2.8) Lipase (23-300) U/L Procalcitonin (<0.5) ng/mL Urine RBC (0-5/HPF) Urine WBC (0-5/HPF) Ur Squamous Epith Cells (0-5/HPF) Ur Transition Epith Cell (0-5/HPF) Ur Renal Epithelial Cell (0-1/HPF) Urine Bacteria (None) Ur Culture Indicated? Influenza A (RT-PCR) (NEGATIVE) Influenza B (RT-PCR) (NEGATIVE) Point of care testing: Urine Dip Bedside Urine Glucose Negative Bedside Urine Bilirubin - Negative Bedside Urine Ketone - Negative Bedside Urine Occult Blood - Negative Bedside Urine Protein - Negative Bedside Urine Urobilinogen - Negative Bedside Urine Nitrite - Negative Bedside Urine Leukocytes +++ 500 Esterase Discharge Plan Departure Patient Disposition: Home Clinical Impression: Pyelonephritis Discharge Date/Time: 09/30/19 19:55 Activity Restrictions/Additional Instructions: You have been diagnosed with [pyelonephritis. Mild elevation in white count 11.2 normal lactate and procalcitonin. Blood cultures pending. Urine culture is pending. Urine continue to show +++Leuks today. Mildly decreased kidney function test today with creatinine of 1.1 with GFR of 49.1. You will need recheck on kidney function test in a week or 2. Flu test was negative. You were treated with IV fluid, Rocephin 2 g IV, morphine and Zofran while in ED. You felt improved with these medications.]. What to do: *Take your medications as directed. Please take Zofran as needed every 6-8 hours for nausea or vomiting. This medication has been transmitted to [facility] in [place]. Please start taking new antibiotic medication Keflex twice a day for next 7 days and this medication has been transmitted to [facility]. You can also take Tylenol 650-1000 mg Q 6 hours as needed for discomfort. *Follow up with your primary care provider in 2-3 days, call for an appointment. Let them know you were seen in the ED and that we asked you to be seen in follow up. *Return to ED if you have any new, worsening, or concerning symptoms, such as [chest pain, breathing difficulty, unable to tolerate fluids, worsening pain, unable to void for prolonged time, high fever not managed with Tylenol or any acute concerns.]. Prescriptions: New cephalexin [Keflex] 500 mg capsule 500 mg PO BID 7 Days Qty: 14 RF: 0 ondansetron 4 mg tablet,disintegrating 4 mg PO Q6-8H PRN (Reason: nausea and vomiting) 4 Days Qty: 10 RF: 0 hydrocodone-acetaminophen [[place]] 5-325 mg tablet 1 tab PO Q12H PRN (Reason: pain) Qty: 7 RF: 0 No Action triamterene-hydrochlorothiazid 37.5-25 mg tablet 1 tab PO DAILY RF: 0 albuterol sulfate [ProAir HFA] 90 mcg/actuation HFA aerosol inhaler 2 puff Inhalation Q4H PRN (Reason: wheezing,cough, or congestion) RF: 0 CoQ-10 1 cap PO DAILY RF: 0 omeprazole 20 mg capsule,delayed release(DR/EC) 20 mg PO BID RF: 0 nitrofurantoin monohyd/m-cryst 100 mg capsule 100 mg PO BID RF: 0 potassium chloride [Klor-Con 10] 10 mEq tablet extended release 10 meq PO DAILY RF: 0 Restasis 0.05 % Dropperette 1 drp ophthalmic (eye) DIRECTED RF: 0 biotin 1 tab PO DAILY RF: 0 magnesium 30 mg tablet 30 mg PO DAILY RF: 0 omega-3 fatty acids [Fish Oil Concentrate] 1,000 mg capsule 1,000 mg PO DAILY RF: 0 cholecalciferol (vitamin D3) 1,000 unit capsule 1,000 unit PO DAILY RF: 0 ascorbic acid (vitamin C) 500 mg capsule 500 mg PO DAILY RF: 0 calcium 1 tab PO DAILY RF: 0 vitafusion 1 dose PO DAILY RF: 0 ibuprofen [Motrin IB] 200 mg capsule 200 mg PO BID RF: 0 [id number] 1 tab PO TID RF: 0 Referrals: Baljit Bishop MD [Primary Care Provider] -
[2019-09-30] MEDS: SODIUM CHLORIDE 0.9% 1,000 ML 125 ML IV (16:05)
[2019-09-30] MEDS: ONDANSETRON 4 MG/2 ML INJ IV ×2 (16:16→19:19)
[2019-09-30] MEDS: MORPHINE 4 MG/ML INJ IV (16:16)
--- NOTE | 2019-09-30 16:22 | DI.CT.S_ITS ---
PROCEDURE: CT ABDOMEN PELVIS W CON INDICATIONS: abd pain, flank pain, nausea, recent UTI, worsening sx TECHNIQUE: After the administration of intravenous contrast, 5 mm thick sections acquired from the diaphragm to the symphysis. 5 mm coronal and sagittal reformats were acquired. For radiation dose reduction, the following was used: automated exposure control, adjustment of mA and/or kV according to patient size. COMPARISON: [facility], CT, CT ABDOMEN PELVIS W CON, 01/03/2019, 10:56. FINDINGS: Image quality: Excellent. ABDOMEN: Lung bases: Lung bases are clear. Heart size is normal. Solid organs: Liver is normal in size and enhancement. 1.7 cm rounded, coarse calcification in the posterior-superior subsegment of the right lobe of liver is stable compared to the prior exam. Gallbladder is surgically absent. Biliary system is non dilated. Pancreas enhances normally. Spleen is normal in size and enhancement. No adrenal nodules. Kidneys demonstrate normal size and enhancement, without hydronephrosis. Peritoneum and bowel: Bowel loops demonstrate normal wall thickness and caliber. No free fluid or air. The appendix is normal. Nodes and vessels: No retroperitoneal or mesenteric adenopathy by size criteria. Aorta and inferior vena cava are normal in size. Scattered atherosclerotic calcifications involving the abdominal and pelvic vasculature. Miscellaneous: Small fat-containing umbilical hernia. PELVIS: Genitourinary: Bladder wall thickness is normal. Uterus and ovaries are within normal limits. Miscellaneous: No inguinal hernias or adenopathy. Bones: No suspicious bony lesions. No vertebral body compression fractures. Spine degenerative disc disease and facet arthropathy. IMPRESSION: 1. No acute disease process. 2. No free fluid free air. 3. No dilated loops of bowel. 4. No evidence of appendicitis. Dictated by: Teresa Aldrich MD, PhD on 09/30/2019 at 16:58 Approved by: Teresa Aldrich MD, PhD on 09/30/2019 at 17:03
[2019-09-30] MEDS: CEFTRIAXONE 2 GM/50 ML FROZ.PIGGY IV (17:09)
[2019-09-30 17:15] LABS: Bacteria Urine None Seen; RBC Urine None Seen (0-5/HPF)
[2019-09-30 17:21] LABS: Culture Indicated Urine Cult Not Indicated; Renal Epithelial Cells Urine 10-20/HPF (0-1/HPF); Squamous Epithelial Cell Urine 10-30 /HPF (0-5/HPF); Transitional Epi Cells Urine 1-5/HPF (0-5/HPF); WBC Urine 5-10/HPF (0-5/HPF)
[2019-09-30] MEDS: HYDROCODONE/ACET 5/325 TABLET 1 TAB PO (19:15)
--- NOTE | 2019-10-01 08:38 | PC.NURSE ---
note left for me to call pt back, letting her know that norco script was transmitted to [facility] in [place]/ [facility]
== END 2019-09-30 19:55 | disposition home or self-care (01) ==
PROVIDERS: Emergency Medicine; Emergency Provider Nurse Practitioner Family; PCP Family Medicine
DX: N12 Tubulo-interstitial nephritis, not specified as acute or chronic (principal); R00.0 Tachycardia, unspecified
CPT/HCPCS: 36415; 71045; 74177; 76770; 80053; 81003; 81015; 83605; 83690; 84145; 85025; 85610; 85730; 87040; 87502; 93005; 96361; 96365; 96375; 96376; 99285; J0696; J2270; J2405; Q9967

== ENCOUNTER 2019-11-20 18:03 | Emergency (ER) | payer MEDICARE, OTHER, SELFPAY ==
--- NOTE | 2019-11-20 | DI.RAD.S_ITS ---
PROCEDURE: XR FOOT LT MIN 3V INDICATIONS: PAIN S/P FALL TECHNIQUE: 3 views of the foot were acquired. COMPARISON: None. FINDINGS: Bones: Avulsion fracture of the base of the second metatarsal noted with slight widening of the Lisfranc joint. Nondisplaced fracture through the base of the third and fourth metatarsals. Soft tissues: No tibiotalar joint effusion. Achilles tendon appears normal. IMPRESSION: 1. Second third and fourth metatarsal fractures. 2. Widening of the Lisfranc joint compatible with Lisfranc injury. Dictated by: Teresa Aldrich MD, PhD on 11/20/2019 at 19:14 Approved by: Teresa Aldrich MD, PhD on 11/20/2019 at 19:16
--- NOTE | 2019-11-20 | DI.RAD.S_ITS ---
PROCEDURE: XR LUMBAR SPINE 2-3V INDICATIONS: FALL TECHNIQUE: 3 views of the lumbar spine were acquired. COMPARISON: None. FINDINGS: Bones: 5 [id number] vertebrae are present. There is mild L2-L3 retrolisthesis. No vertebral body compression fractures. No suspicious bony lesions. Multilevel degenerative disc disease and facet arthropathy. Soft tissues: Overlying bowel gas pattern is normal. No suspicious soft tissue calcifications. IMPRESSION: No fracture. No acute osseous lesion. If symptoms and/or clinical suspicion for pathology persists, evaluation with MRI may be helpful for further assessment. Dictated by: Teresa Aldrich MD, PhD on 11/20/2019 at 19:16 Approved by: Teresa Aldrich MD, PhD on 11/20/2019 at 19:16
--- NOTE | 2019-11-20 18:09 | ED.LOWEXIN ---
HPI - Extremity Injury (Lower) General Chief Complaint: Extremity Injury, Lower Stated Complaint: L ankle deformity s/p fall Time Seen by Provider: 11/20/19 18:09 Source: patient and EMS Mode of arrival: EMS Limitations: no limitations History of Present Illness HPI Narrative: 68F nonsmoker with noncontributory medical history presents by EMS with a chief complaint of a mechanical fall resulting in injury to her right-sided ribs and left foot and ankle. She has severe pain with any ambulation or palpation. She denies any dizziness, weakness or lightheadedness before or after the injury. She states that she was attempting to fill her bird feeder the when she lost her balance and fell. She did not strike her head and has no neck pain. She does have some midline lower back pain that is worse with palpation and range of motion. She denies numbness, tingling or weakness. She denies any loss of control of bowel or bladder. Patient denies travel or exposure to persons known to be positive for COVID-19. Denies a headache, change in smell, sore throat, fever, cough, shortness of breath or GI symptoms MD complaint: ankle injury, foot injury and fall Onset (ago): minute(s) Type of Injury: blunt and inversion Place: street/outdoors Severity: moderate Relieving factors: immobilization and rest Exacerbating factors: weight bearing and movement Context: fall and direct blow Associated symptoms: snap/pop sensation Other symptoms: none Treatments prior to arrival: cold therapy Related Data Home Medications Medication Instructions Recorded Confirmed magnesium 30 mg tablet 30 mg PO DAILY 04/24/18 10/25/19 omega-3 fatty acids 1,000 mg 1,000 mg PO DAILY 04/24/18 10/25/19 capsule ascorbic acid (vitamin C) 500 mg 500 mg PO DAILY cap 06/11/18 10/25/19 capsule cholecalciferol (vitamin D3) 25 1,000 unit PO DAILY 06/11/18 10/25/19 mcg (1,000 unit) capsule CoQ-10 1 cap PO DAILY 12/01/18 10/25/19 albuterol sulfate [ProAir HFA] 2 puff INHALATION Q4H PRN 12/01/18 10/25/19 triamterene-hydrochlorothiazid 1 tab PO DAILY 12/01/18 10/25/19 calcium 1 tab PO DAILY 06/23/19 10/25/19 ibuprofen 200 mg capsule 200 mg PO BID cap 06/23/19 10/25/19 [id number] 1 tab PO TID 06/23/19 10/25/19 vitafusion 1 dose PO DAILY 06/23/19 10/25/19 biotin 1 tab PO DAILY 09/30/19 10/25/19 cyclosporine [Restasis] 1 drp OPHTHALMIC (EYE) DIRECTED 09/30/19 10/25/19 potassium chloride [Klor-Con 10] 10 meq PO DAILY 09/30/19 10/25/19 Previous Rx's Medication Instructions Recorded hydrocodone-acetaminophen 1 tab PO Q4-6H PRN #30 tab 11/20/19 Allergies Allergy/AdvReac Type Severity Reaction Status Date / Time chocolate flavor Allergy Intermediate INCREASED Verified 10/25/19 09:02 [CHOCOLATE FLAVOR] HR, HEADACHE Penicillins [PENICILLINS] Allergy Intermediate HIVES Verified 10/25/19 09:02 oxycodone [OXYCODONE] AdvReac Intermediate N/V, Verified 10/25/19 09:02 HEADACHE Review of Systems Constitutional Constitutional: Denies chills, Denies fatigue, Denies fever(s), Denies frequent falls, Denies lethargy and Denies weakness Eyes Eyes: Denies change in vision, Denies eye discharge, Denies irritation and Denies loss of vision ENT Ears, Nose, Mouth, and Throat: Denies change in voice, Denies dizziness, Denies neck pain, Denies sore throat and Denies throat swelling Cardiovascular Cardiovascular: Denies chest pain, Denies irregular heart rhythm, Denies lightheadedness, Denies palpitations, Denies dyspnea, Denies dyspnea on exertion and Denies orthopnea Comments: Right-sided chest pain with deep breath Respiratory Respiratory: Denies cough, Denies dyspnea, Denies dyspnea on exertion and Denies wheezing Gastrointestinal Gastrointestinal: Denies abdominal pain, Denies change in bowel habits, Denies diarrhea, Denies nausea and Denies vomiting Genitourinary Genitourinary: Denies hematuria, Denies flank pain, Denies urinary incontinence and Denies urinary urgency Musculoskeletal Musculoskeletal: Denies back pain, Reports joint swelling, Reports limited range of motion, Denies muscle weakness, Denies neck pain, Denies numbness and Denies tingling Integumentary/Breasts Skin/Breast: Denies pruritus, Denies erythema, Denies rash and Denies wounds Neurologic Neurologic: Denies behavioral changes, Denies confusion, Denies dizziness, Denies frequent falls, Denies loss of vision, Denies numbness, Denies tingling and Denies weakness Psychiatric Psychiatric: Denies anxiety, Denies behavioral changes, Denies confusion, Denies depression, Denies homicidal ideation and Denies suicidal ideation Endocrine Endocrine: Denies fatigue, Denies flushing and Denies palpitations Hematologic/Lymphatic Hematologic/Lymphatic: Denies easy bruising Allergic/Immunologic Allergic/Immunologic: Denies urticaria, Denies throat swelling and Denies wheezing Patient History Medical History Asthma (Chronic) Hypertension (Acute) Surgical History History of back surgery (Chronic) History of cholecystectomy (Chronic) Family History Father Lung cancer Emphysema (subcutaneous) (surgical) resulting from a procedure Mother Congestive heart failure Social History marital status: Smoking Status: Never smoker alcohol intake: current substance use type: does not use Smoking Status: Never smoker Substance Use Type: does not use Exam Narrative Exam Narrative: GENERAL: [68] year old patient appears stated age. Well-nourished, well-developed patient, in mild distress. GCS 15, obviously in some pain HEAD: Atraumatic. Normocephalic. EYES: Pupils equal round and reactive. Extraocular motions intact. No scleral icterus. No injection or drainage. ENT: Nose without bleeding, purulent drainage. Throat without erythema, tonsillar hypertrophy or exudate. Airway patent. NECK: Trachea midline. Non tender CARDIOVASCULAR: Regular rate and rhythm without murmurs, gallops, or rubs. RESPIRATORY: Clear to auscultation. Breath sounds equal bilaterally. No wheezes, rales, or rhonchi. Right-sided ribs tender to palpate, no crepitance, swelling or external manifestation of injury GASTROINTESTINAL: Abdomen soft, non-tender, nondistended. EXTREMITIES: Left ankle tender to palpation, most notably over the lateral malleolus. No obvious deformity or swelling. Additionally patient is tender to dorsum of foot overlying metatarsals. These injuries are closed, isolated and neurovascularly intact. Other extremities are absent of pain, swelling or abnormality. BACK: Nontender without deformity or crepitance. No flank tenderness. NEURO: AOx3. SKIN: No rash or erythema of visible areas Initial Vital Signs Initial Vital Signs: Vital Signs Temperature 98.6 F 11/20/19 18:14 Pulse Rate 84 11/20/19 18:14 Respiratory Rate 22 11/20/19 18:14 Blood Pressure 142/96 H 11/20/19 18:14 Pulse Oximetry 100 11/20/19 18:14 Procedures Orthopedic Splinting/Casting Injury #1: Side: left Lower Extremity Injury Location: ankle Lower Extremity Immobilizer: posterior splint and stirrup splint Other Orthopedic Equipment: crutches Post splinting neuro exam: intact Post splinting vascular exam: intact Placed by: Nursing Course Orders Ordered: ED Orders 11/20/19 18:12 XR ankle LT min 3V Stat 11/20/19 18:13 XR ribs RT min 3V w CXR1V Stat 11/20/19 19:52 CT LE LT wo con Stat Discontinued Medications Hydrocodone Bitart/Acetaminophen ([place] 5/325) 2 tab PO NOW ONE Stop: 11/20/19 19:53 Last Admin: 11/20/19 20:11 Dose: 2 tab Documented by: XIMENA Hydrocodone Bitart/Acetaminophen (Vicodin 5/325 Prepack) 1 bottle MISC SEEINSTR ONE Stop: 11/20/19 20:48 Last Admin: 11/20/19 21:48 Dose: 1 bottle Documented by: XIMENA Ondansetron HCl (Zofran Odt Prepack) 1 bottle MISC SEEINSTR ONE Stop: 11/20/19 20:48 Last Admin: 11/20/19 21:48 Dose: 1 bottle Documented by: XIMENA Consultations Consultation #1: Discussion with on-call orthopedist, Dr. Diaz, after receipt of imaging which suggest Lisfranc injury. We agree that a non contrasted CT of the foot and ankle is indicated and will recontact upon completion of these images Vital Signs Vital signs: Vital Signs - 8 hr 11/20/19 18:14 11/20/19 20:32 11/20/19 21:52 Temperature 98.6 F Pulse Rate 84 80 78 Respiratory Rate 22 Blood Pressure 142/96 H Blood Pressure [Left Arm] 156/74 H 168/72 H Pulse Oximetry 100 98 98 MDM - Extremity Injury (Lower) Imaging Data Chest x-ray: Radiologist's Impression: [address] [address] XRay Report Signed Patient: Hayde Mensah LMR#: [id number] : 9Acct:[id number] Age/Sex: 68 / FDate of Service: 11/20/19 Loc: ED Accession Number: [id number] Procedure: XR ribs RT min 3V w CXR1V Ordering Provider: Darrius Woods D.O. PROCEDURE: XR RIBS RT MIN 3V W CXR 1V INDICATIONS: Fall, R rib pain TECHNIQUE: 2 views of the right ribs were acquired, along with a single view chest. COMPARISON: None. FINDINGS: Surgical changes and devices: Cholecystectomy clips. Bones and chest wall: No fractures or dislocations. No suspicious bony lesions. Overlying soft tissues appear unremarkable. Lungs and pleura: No pleural effusions or pneumothorax. Lungs appear clear. Mediastinum: Mediastinal contours appear normal. Heart size is normal. IMPRESSION: No displaced rib fracture. Dictated by: Teresa Aldrich MD, PhD on 11/20/2019 at 19:13 Approved by: Teresa Aldrich MD, PhD on 11/20/2019 at 19:14 Extremity x-ray #1: Radiologist's Impression: [address] [address] XRay Report Signed Patient: Hayde Mensah LMR#: [id number] : 9Acct:[id number] Age/Sex: 68 / FDate of Service: 11/20/19 Loc: ED Accession Number: [id number] Procedure: XR ankle LT min 3V Ordering Provider: Darrius Woods D.O. PROCEDURE: XR ANKLE LT MIN 3V INDICATIONS: Pain s/p fall, deformity per EMS TECHNIQUE: 3 views of the ankle were acquired. COMPARISON: None. FINDINGS: Bones: No fractures or dislocations. Ankle mortise is normally aligned. No suspicious bony lesions. Soft tissues: No tibiotalar joint effusion. Achilles tendon appears normal. Lateral soft tissue swelling is noted and ligamentous injury cannot be excluded. IMPRESSION: No fracture. No osseous lesion. If symptoms and/or clinical suspicion for pathology persists, further assessment with repeat radiographs (7-10 days) or advanced imaging (e.g. CT, MRI or bone scan) may be helpful. Dictated by: Teresa Aldrich MD, PhD on 11/20/2019 at 19:12 Approved by: Teresa Aldrich MD, PhD on 11/20/2019 at 19:[address] [address] XRay Report Signed Patient: Hayde Mensah LMR#: [id number] : [id number]:[id number] Age/Sex: 68 / FDate of Service: 11/20/19 Loc: ED Accession Number: [id number] Procedure: XR foot LT min 3V Ordering Provider: Darrius Woods D.O. PROCEDURE: XR FOOT LT MIN 3V INDICATIONS: PAIN S/P FALL TECHNIQUE: 3 views of the foot were acquired. COMPARISON: None. FINDINGS: Bones: Avulsion fracture of the base of the second metatarsal noted with slight widening of the Lisfranc joint. Nondisplaced fracture through the base of the third and fourth metatarsals. Soft tissues: No tibiotalar joint effusion. Achilles tendon appears normal. IMPRESSION: 1. Second third and fourth metatarsal fractures. 2. Widening of the Lisfranc joint compatible with Lisfranc injury. Dictated by: Teresa Aldrich MD, PhD on 11/20/2019 at 19:14 Approved by: Teresa Aldrich MD, PhD on 11/20/2019 at 19:16 Lumbar Xray: Radiologist's Impression: Hayde Mensah L 68 F [address] [address] XRay Report Signed Patient: Hayde Mensah LMR#: [id number] : 9Acct:[id number] Age/Sex: 68 / FDate of Service: 11/20/19 Loc: ED Accession Number: [id number] Procedure: XR lumbar spine 2-3V Ordering Provider: Darrius Woods D.O. PROCEDURE: XR LUMBAR SPINE 2-3V INDICATIONS: FALL TECHNIQUE: 3 views of the lumbar spine were acquired. COMPARISON: None. FINDINGS: Bones: 5 [id number] vertebrae are present. There is mild L2-L3 retrolisthesis. No vertebral body compression fractures. No suspicious bony lesions. Multilevel degenerative disc disease and facet arthropathy. Soft tissues: Overlying bowel gas pattern is normal. No suspicious soft tissue calcifications. IMPRESSION: No fracture. No acute osseous lesion. If symptoms and/or clinical suspicion for pathology persists, evaluation with MRI may be helpful for further assessment. Dictated by: Teresa Aldrich MD, PhD on 11/20/2019 at 19:16 Approved by: Teresa Aldrich MD, PhD on 11/20/2019 at 19:[address]: Radiologist's Impression: Hayde Mensah 68 F 1950 [place] [address] CT Scan Report Signed Patient: Hayde Mensah LMR#: [id number] : [id number]:[id number] Age/Sex: 68 / FDate of Service: 11/20/19 Loc: ED Accession Number: [id number] Procedure: CT LE LT wo con Ordering Provider: Darrius Woods D.O. PROCEDURE: CT LE LT W CON INDICATIONS: ankle/foot pain, per ortho TECHNIQUE: Noncontrast 1-1.5 mm axial sections acquired from above the tibiotalar joint to the bottom of the calcaneus, with coronal and sagittal reformats. COMPARISON: [facility], CR, XR ANKLE LT MIN 3V, 11/20/2019, 18:08. [facility], CR, XR FOOT LT MIN 3V, 11/20/2019, 18:08. FINDINGS: Image quality: Excellent. Bones: Nondisplaced fracture involving the lateral malleolus. Avulsion fracture off the medial margin of the base of the second metatarsal noted with widening of the Lisfranc joint. Minimally displaced fractures of the base of the third and fourth metatarsals. Soft tissues: Soft tissue swelling over the dorsum of the foot. IMPRESSION: 1. Fractures involving the bases of the second, third and fourth metatarsals. 2. Widening of the Lisfranc joint compatible with Lisfranc ligament injury. 3. Nondisplaced lateral malleolus fracture. Dictated by: Teresa Aldrich MD, PhD on 11/20/2019 at 20:36 Approved by: Teresa Aldrich MD, PhD on 11/20/2019 at 20:4 Discharge Plan Departure Patient Disposition: Home Clinical Impression: Lisfranc fracture Ankle fracture, lateral malleolus, closed Qualifiers: Encounter type: initial encounter Fracture alignment: nondisplaced Laterality: left Qualified Code(s): S82.65XA - Nondisplaced fracture of lateral malleolus of left fibula, initial encounter for closed fracture Contusion of ribs Qualifiers: Encounter type: initial encounter Laterality: right Qualified Code(s): S20.211A - Contusion of right front wall of thorax, initial encounter Back pain Qualifiers: Back pain location: low back pain Chronicity: acute Back pain laterality: unspecified Sciatica presence: without sciatica Qualified Code(s): M54.5 - Low back pain Discharge Date/Time: 11/20/19 22:05 Instructions: DI for Ankle Fracture, DI for Foot Fracture Activity Restrictions/Additional Instructions: *You have been diagnosed with [fracture of left foot and ankle. Imaging of your ribs and back demonstrate no fracture] *What to do: *Take medications as directed *Follow up with [facility] in 2-3 days, call for an appointment. Let them know you were seen in the Emergency Department and that we ask that you be seen in follow up *Return to ER if you should have any new, worsening or concerning symptoms NO WEIGHT BEARING Splint Care: Keep splint clean and dry. Elevated affected body part to decrease swelling. OK to use ice pack on the affected body part. Use for 15-20 minutes each time, for 5-6x per day. If you develop worsening pain, numbness, tingling, discoloration of the affected body part, loosen the splint by loosening the JESÚS wrap, and either see your doctor for an urgent re-assessment, or return to the Emergency Department. Return to the Emergency Department for any new or worsening symptoms. Prescriptions: New hydrocodone-acetaminophen 5-325 mg tablet 1 tab PO Q4-6H PRN (Reason: pain) Qty: 30 RF: 0 No Action triamterene-hydrochlorothiazid 37.5-25 mg tablet 1 tab PO DAILY RF: 0 albuterol sulfate [ProAir HFA] 90 mcg/actuation HFA aerosol inhaler 2 puff Inhalation Q4H PRN (Reason: wheezing,cough, or congestion) RF: 0 CoQ-10 1 cap PO DAILY RF: 0 potassium chloride [Klor-Con 10] 10 mEq tablet extended release 10 meq PO DAILY RF: 0 Restasis 0.05 % [place] 1 drp ophthalmic (eye) DIRECTED RF: 0 biotin 1 tab PO DAILY RF: 0 magnesium 30 mg tablet 30 mg PO DAILY RF: 0 omega-3 fatty acids [Fish Oil Concentrate] 1,000 mg capsule 1,000 mg PO DAILY RF: 0 cholecalciferol (vitamin D3) 1,000 unit capsule 1,000 unit PO DAILY RF: 0 ascorbic acid (vitamin C) 500 mg capsule 500 mg PO DAILY RF: 0 calcium 1 tab PO DAILY RF: 0 vitafusion 1 dose PO DAILY RF: 0 ibuprofen [Motrin IB] 200 mg capsule 200 mg PO BID RF: 0 [id number] 1 tab PO TID RF: 0 Referrals: Baljit Bishop MD [Primary Care Provider] - Ronan Diaz MD [Physician] -
--- NOTE | 2019-11-20 18:12 | DI.RAD.S_ITS ---
PROCEDURE: XR ANKLE LT MIN 3V INDICATIONS: Pain s/p fall, deformity per EMS TECHNIQUE: 3 views of the ankle were acquired. COMPARISON: None. FINDINGS: Bones: No fractures or dislocations. Ankle mortise is normally aligned. No suspicious bony lesions. Soft tissues: No tibiotalar joint effusion. Achilles tendon appears normal. Lateral soft tissue swelling is noted and ligamentous injury cannot be excluded. IMPRESSION: No fracture. No osseous lesion. If symptoms and/or clinical suspicion for pathology persists, further assessment with repeat radiographs (7-10 days) or advanced imaging (e.g. CT, MRI or bone scan) may be helpful. Dictated by: Teresa Aldrich MD, PhD on 11/20/2019 at 19:12 Approved by: Teresa Aldrich MD, PhD on 11/20/2019 at 19:13
--- NOTE | 2019-11-20 18:13 | DI.RAD.S_ITS ---
PROCEDURE: XR RIBS RT MIN 3V W CXR 1V INDICATIONS: Fall, R rib pain TECHNIQUE: 2 views of the right ribs were acquired, along with a single view chest. COMPARISON: None. FINDINGS: Surgical changes and devices: Cholecystectomy clips. Bones and chest wall: No fractures or dislocations. No suspicious bony lesions. Overlying soft tissues appear unremarkable. Lungs and pleura: No pleural effusions or pneumothorax. Lungs appear clear. Mediastinum: Mediastinal contours appear normal. Heart size is normal. IMPRESSION: No displaced rib fracture. Dictated by: Teresa Aldrich MD, PhD on 11/20/2019 at 19:13 Approved by: Teresa Aldrich MD, PhD on 11/20/2019 at 19:14
[2019-11-20 18:14] VITALS: BP 142/96; PULSE 84; RESP 22; TEMP 37; O2SAT 100
--- NOTE | 2019-11-20 19:52 | DI.CT.S_ITS ---
PROCEDURE: CT LE LT W CON INDICATIONS: ankle/foot pain, per ortho TECHNIQUE: Noncontrast 1-1.5 mm axial sections acquired from above the tibiotalar joint to the bottom of the calcaneus, with coronal and sagittal reformats. COMPARISON: [facility], CR, XR ANKLE LT MIN 3V, 11/20/2019, 18:08. [facility], CR, XR FOOT LT MIN 3V, 11/20/2019, 18:08. FINDINGS: Image quality: Excellent. Bones: Nondisplaced fracture involving the lateral malleolus. Avulsion fracture off the medial margin of the base of the second metatarsal noted with widening of the Lisfranc joint. Minimally displaced fractures of the base of the third and fourth metatarsals. Soft tissues: Soft tissue swelling over the dorsum of the foot. IMPRESSION: 1. Fractures involving the bases of the second, third and fourth metatarsals. 2. Widening of the Lisfranc joint compatible with Lisfranc ligament injury. 3. Nondisplaced lateral malleolus fracture. Dictated by: Teresa Aldrich MD, PhD on 11/20/2019 at 20:36 Approved by: Teresa Aldrich MD, PhD on 11/20/2019 at 20:42
[2019-11-20] MEDS: HYDROCODONE/ACET 5/325 TABLET 2 TAB PO (20:11)
[2019-11-20 20:32] VITALS: BP 156/74; PULSE 80; O2SAT 98
[2019-11-20] MEDS: HYDROCODONE/ACET 5/325 PREPACK 1 BOTTLE MISC (21:48)
[2019-11-20] MEDS: ONDANSETRON 4 MG ODT PREPACK 1 BOTTLE MISC (21:48)
[2019-11-20 21:52] VITALS: BP 168/72; PULSE 78; O2SAT 98
== END 2019-11-20 22:05 | disposition home or self-care (01) ==
PROVIDERS: Emergency Provider Emergency Medicine; PCP Family Medicine
DX: S82.65XA Nondisplaced fracture of lateral malleolus of left fibula, initial encounter for closed fracture (principal); S20.211A Contusion of right front wall of thorax, initial encounter; M54.5 Low back pain; R07.9 Chest pain, unspecified; I10 Essential (primary) hypertension; W19.XXXA Unspecified fall, initial encounter
CPT/HCPCS: 71101; 72100; 73610; 73630; 73700; 99284

== ENCOUNTER 2020-03-12 10:17 | Emergency (ER) | payer MEDICARE, OTHER, SELFPAY ==
[2020-03-12 10:29] VITALS: BP 183/83; PULSE 99; RESP 18; TEMP 37.1; O2SAT 98; BMI 32.1
--- NOTE | 2020-03-12 10:34 | DI.RAD.S_ITS ---
PROCEDURE: XR CLAVICLE RT INDICATIONS: right shoulder and clavicle pain TECHNIQUE: 2 views of the clavicle were acquired. COMPARISON: [facility], CR, XR RIBS RT MIN 3V W CXR 1V, 11/20/2019, 18:08. [facility], CR, XR SHOULDER RT MIN 2V, 03/12/2020, 10:30. FINDINGS: Bones: No fractures or dislocations. No suspicious bony lesions. Age-appropriate bony degenerative changes are seen. Soft tissues: No suspicious soft tissue calcifications. The visualized lung demonstrates an unremarkable appearance. IMPRESSION: Degenerative changes, without fracture identified. Dictated by: Rafa Baldwin M.D. on 03/12/2020 at 9:47 Approved by: Rafa Baldwin M.D. on 03/12/2020 at 9:49
--- NOTE | 2020-03-12 10:34 | DI.RAD.S_ITS ---
PROCEDURE: XR SHOULDER RT MIN 2V INDICATIONS: right shoulder and clavicle pain TECHNIQUE: 3 views of the shoulder were acquired. COMPARISON: [facility], CR, XR CLAVICLE RT, 03/12/2020, 10:28. [facility], CR, XR RIBS RT MIN 3V W CXR 1V, 11/20/2019, 18:08. FINDINGS: Bones: No fractures or dislocations. No suspicious bony lesions. Visualized ribs appear intact. Degenerative changes are seen, including mild subacromial spurring. Soft tissues: No suspicious soft tissue calcifications. The visualized lung demonstrates an unremarkable appearance. IMPRESSION: Unremarkable shoulder for age, with note made of degenerative changes. No fractures or dislocations are seen. If it would be helpful for clinical management decision making, please consider a dedicated shoulder MRI for further evaluation (assuming that there is no contraindication). If there is strong clinical concern for a labral abnormality, this should be performed according to the arthrogram protocol. Dictated by: Rafa Baldwin M.D. on 03/12/2020 at 9:49 Approved by: Rafa Baldwin M.D. on 03/12/2020 at 9:50
--- NOTE | 2020-03-12 11:53 | ED.UPPEXIN ---
HPI - Extremity Injury (Upper) <DARYA Romero - Last Filed: 03/12/20 14:12> General Chief Complaint: Extremity Injury, Upper Stated Complaint: Right shoulder pain, possible dislocation Time Seen by Provider: 03/12/20 11:26 Source: patient Mode of arrival: Ambulatory Limitations: no limitations History of Present Illness HPI narrative: This is a 69-year-old female, nonsmoker, who has chronic history of hypertension, bronchitis presents to ED with spouse with chief complain of nontraumatic, non-dominant right shoulder pain when she woke up yesterday morning. Patient slept previous night cured up on her right side and shoulder in a weird position and states she usually sleeps on her back. Patient denies associated symptoms such as chest pain, breathing difficulty, nausea or vomiting, or cold sweats. Patient reports 9/10 burning and sharp pain around her deltoid area radiating to trapezius, neck, right-side of head and face. Patient reports intact sensation and is able to move her fingers. Patient reports pain increases with right arm forward flexion and improves with rest. Patient denies fever, rash around the affected region. Patient states she had chickenpox in the past and had received shingles vaccination about 6-7 years ago. Patient reports pain is so severe that she had taken 1 tab of Mahwah last night before she went to bed that she had right ankle fracture. She reports she has about 2 pills left. Patient's right shoulder and arm has been wrapped with Gene wrap by her for immobilization which is helping pain before coming into ED. Related Data Home Medications Medication Instructions Recorded Confirmed magnesium 30 mg tablet 30 mg PO DAILY 04/24/18 01/10/20 omega-3 fatty acids 1,000 mg 1,000 mg PO DAILY 04/24/18 01/10/20 capsule ascorbic acid (vitamin C) 500 mg 500 mg PO DAILY cap 06/11/18 01/10/20 capsule cholecalciferol (vitamin D3) 25 1,000 unit PO DAILY 06/11/18 01/10/20 mcg (1,000 unit) capsule CoQ-10 1 cap PO DAILY 12/01/18 01/10/20 albuterol sulfate [ProAir HFA] 2 puff INHALATION Q4H PRN 12/01/18 01/10/20 triamterene-hydrochlorothiazid 1 tab PO DAILY 12/01/18 01/10/20 calcium 1 tab PO DAILY 06/23/19 01/10/20 [id number] 1 tab PO TID 06/23/19 01/10/20 vitafusion 1 dose PO DAILY 06/23/19 01/10/20 biotin 1 tab PO DAILY 09/30/19 01/10/20 cyclosporine [Restasis] 1 drp OPHTHALMIC (EYE) DIRECTED 09/30/19 01/10/20 potassium chloride [Klor-Con 10] 10 meq PO DAILY 09/30/19 01/10/20 Previous Rx's Medication Instructions Recorded cyclobenzaprine 5 - 10 mg PO DAILY PRN #7 tab 03/12/20 diclofenac sodium [Voltaren] 2 gram TOP QID #100 gram 03/12/20 hydrocodone-acetaminophen [Mahwah] 1 tab PO Q12H PRN #7 tab 03/12/20 Allergies Allergy/AdvReac Type Severity Reaction Status Date / Time chocolate flavor Allergy Intermediate INCREASED Verified 03/12/20 10:33 [CHOCOLATE FLAVOR] HR, HEADACHE Penicillins [PENICILLINS] Allergy Intermediate HIVES Verified 03/12/20 10:33 oxycodone [OXYCODONE] AdvReac Intermediate N/V, Verified 03/12/20 10:33 HEADACHE Review of Systems <DARYA Romero - Last Filed: 03/12/20 14:12> Review of Systems Narrative: General: Denies fever, chills, fatigue, malaise, sweats. HEENT: Denies sinus pain, ear pain, sore throat, difficulty swallowing, dizziness. Respiratory: Denies dyspnea, (+) chronic dry cough from bronchitis, wheezing, hemoptysis, sputum. Cardiovascular: Denies chest pain, palpitations, orthopnea, edema. Gastrointestinal: Denies nausea, vomiting, abdominal pain, diarrhea, constipation, melena. : Denies dysuria, frequency, incontinence, hematuria, urinary retention. Musculoskeletal: See HPI Skin: Denies rash, skin lesions, or other. Neurologic: Denies weakness, headache, numbness, change in speech, confusion, seizures, incoordination. Psychiatric: No concerning psychosocial issues. 12-point review of systems is negative except for those stated above. Patient History <DARYA Romero - Last Filed: 03/12/20 14:12> Medical History Asthma (Chronic) Hypertension (Acute) Surgical History History of back surgery (Chronic) History of cholecystectomy (Chronic) Family History Father Lung cancer Emphysema (subcutaneous) (surgical) resulting from a procedure Mother Congestive heart failure Social History marital status: Smoking Status: Never smoker alcohol intake: current substance use type: does not use Smoking Status: Never smoker Substance Use Type: does not use Exam <DARYA Romreo - Last Filed: 03/12/20 14:12> Narrative Exam Narrative: GEN: Alert, oriented x 3, well nourished, and in moderate distress from pain. Head: Normal cephalic, atraumatic. No scalp or temporal tenderness, palpable mass or rash. EYES: Pupils are equal, round, and reactive to light and accommodation. Extraocular muscles are intact bilaterally. There is no subconjunctival hemorrhage, exudate and sclera non-icteric. ENT: Hearing grossly intact. Nose without bleeding, purulent discharge or deviation. Airway patent. Neck: Trachea in midline. No JVD, non-tender without lymphadenopathy. No masses or thyroid megaly. Supple, no mid cervical tenderness and no meningeal signs. CARDIAC: Normal regular rate and rhythm without murmurs, gallops, or rubs. No chest wall tenderness. No peripheral edema, cyanosis or pallor. Capillary refill is less than 2 seconds. RESPIRATORY: Lungs are clear to auscultate bilaterally. Occasional dry cough, but no wheezes, rales, or rhonchi. No stridor, respiratory distress, increase work of breathing, or accessary muscle used. ABD: Abdomen soft, nontender and non-distended. No guarding or rebound tenderness to palpate. Bowel sounds are normal in all 4 quadrants. There is no palpable masses or organomegaly. SKIN: Warm, dry, normal color for patient. No erythema, lesions or rash over visible areas. BACK: Nontender without deformity or crepitance. No flank tenderness. NEUROLOGICAL: Alert and oriented to place, time and person. Sensation and motor function intact bilaterally. No facial droops, dysphasia. PSYCHIATRIC: Good judgement and reason, without hallucinations, abnormal affect or abnormal behaviors during the examination. Patient is not suicidal. Initial Vital Signs Initial Vital Signs: Vital Signs Temperature 98.8 F 03/12/20 10:29 Pulse Rate 99 H 03/12/20 10:29 Respiratory Rate 18 03/12/20 10:29 Blood Pressure 183/83 H 03/12/20 10:29 Pulse Oximetry 98 03/12/20 10:29 Extrem Right upper extremity: normal to inspection and shoulder/upper arm Details: normal to inspection, tenderness (medial clavical, anterior shoulder, posterior neck, right side neck ), axillary nerve sensory function normal, abnormal ROM Details: pain with active ROM, pain with passive ROM and with range as follows (<90 degree forward flexion due to pain, 90 abdution) and other (no rashes ); no swelling, no abrasions, no ecchymosis, no crepitus, no deformity and no unusual warmth; ROM limited, no cyanosis, no edema and joint enlargement noted <Collin Boykin MD - Last Filed: 03/13/20 07:48> Initial Vital Signs Initial Vital Signs: Vital Signs Temperature 98.8 F 03/12/20 10:29 Pulse Rate 99 H 03/12/20 10:29 Respiratory Rate 18 03/12/20 10:29 Blood Pressure 183/83 H 03/12/20 10:29 Pulse Oximetry 98 03/12/20 10:29 Scores <DARYA Romero - Last Filed: 03/12/20 14:12> GCS Dipak coma scale eye opening: Spontaneous [place] coma scale verbal response: Orientated Dipak coma scale motor response: Obey commands [place] coma scale total score: 15 Course <DARYA Romero - Last Filed: 03/12/20 14:12> Orders Ordered: Discontinued Medications Acetaminophen (Tylenol) 325 mg PO NOW ONE Stop: 03/12/20 11:53 Last Admin: 03/12/20 12:11 Dose: 325 mg Documented by: XIMENA Hydrocodone Bitart/Acetaminophen (Mahwah 5/325) 1 tab PO NOW ONE Stop: 03/12/20 11:53 Last Admin: 03/12/20 12:10 Dose: 1 tab Documented by: XIMENA Vital Signs Vital signs: Vital Signs - 8 hr 03/12/20 10:29 03/12/20 12:22 Temperature 98.8 F Pulse Rate 99 H 83 Respiratory Rate 18 19 Blood Pressure 183/83 H 156/68 H Pulse Oximetry 98 98 <Collin Boykin MD - Last Filed: 03/13/20 07:48> Orders Ordered: Discontinued Medications Acetaminophen (Tylenol) 325 mg PO NOW ONE Stop: 03/12/20 11:53 Last Admin: 03/12/20 12:11 Dose: 325 mg Documented by: XIMENA Hydrocodone Bitart/Acetaminophen (Mahwah 5/325) 1 tab PO NOW ONE Stop: 03/12/20 11:53 Last Admin: 03/12/20 12:10 Dose: 1 tab Documented by: XIMENA Vital Signs Vital signs: Vital Signs - 8 hr 03/12/20 10:29 03/12/20 12:22 Temperature 98.8 F Pulse Rate 99 H 83 Respiratory Rate 18 19 Blood Pressure 183/83 H 156/68 H Pulse Oximetry 98 98 MDM - Extremity Injury (Upper) <DARYA Romero - Last Filed: 03/12/20 14:12> Differential Diagnosis Differential diagnosis: Likely other (Shoulder impingement, thoracic outlet syndrome, shoulder arthritis, shingles) Medical Records Attestation: I reviewed the patient's medical records. Imaging Data XR-Clavicle RT: Radiologist's Impression: [address] [address] XRay Report Signed Patient: Hayde Mensah LMR#: [id number] : 9Acct:[id number] Age/Sex: 69 / FDate of Service: 03/12/20 Loc: ED Accession Number: [id number] Procedure: XR clavicle RT Ordering Provider: Collin Boykin MD PROCEDURE: XR CLAVICLE RT INDICATIONS: right shoulder and clavicle pain TECHNIQUE: 2 views of the clavicle were acquired. COMPARISON: [facility], CR, XR RIBS RT MIN 3V W CXR 1V, 11/20/2019, 18:08. [facility], CR, XR SHOULDER RT MIN 2V, 03/12/2020, 10:30. FINDINGS: Bones: No fractures or dislocations. No suspicious bony lesions. Age-appropriate bony degenerative changes are seen. Soft tissues: No suspicious soft tissue calcifications. The visualized lung demonstrates an unremarkable appearance. IMPRESSION: Degenerative changes, without fracture identified. Dictated by: Rafa Baldwin M.D. on 03/12/2020 at 9:47 Approved by: Rafa Baldwin M.D. on 03/12/2020 at 9:49 XR-Shoulder RT: Radiologist's Impression: Hayde Mensah 69 F [address] [address] XRay Report Signed Patient: Hayde Mensah LMR#: [id number] : 9Acct:[id number] Age/Sex: 69 / FDate of Service: 03/12/20 Loc: ED Accession Number: [id number] Procedure: XR shoulder RT min 2V Ordering Provider: Collin Boykin MD PROCEDURE: XR SHOULDER RT MIN 2V INDICATIONS: right shoulder and clavicle pain TECHNIQUE: 3 views of the shoulder were acquired. COMPARISON: [facility], CR, XR CLAVICLE RT, 03/12/2020, 10:28. [facility], CR, XR RIBS RT MIN 3V W CXR 1V, 11/20/2019, 18:08. FINDINGS: Bones: No fractures or dislocations. No suspicious bony lesions. Visualized ribs appear intact. Degenerative changes are seen, including mild subacromial spurring. Soft tissues: No suspicious soft tissue calcifications. The visualized lung demonstrates an unremarkable appearance. IMPRESSION: Unremarkable shoulder for age, with note made of degenerative changes. No fractures or dislocations are seen. If it would be helpful for clinical management decision making, please consider a dedicated shoulder MRI for further evaluation (assuming that there is no contraindication). If there is strong clinical concern for a labral abnormality, this should be performed according to the arthrogram protocol. Dictated by: Rafa Baldwin M.D. on 03/12/2020 at 9:49 Approved by: Rafa Baldwin M.D. on 03/12/2020 at 9:50 [facility] Narrative Medical decision making narrative: This is a 69 year female who presents to ED with nontraumatic right shoulder pain radiating to her right-sided neck, head, trapezius, and to mid clavicle region after she woke yesterday morning. Patient has intact distal sensation, circulation, and strength. Patient does have decreased active and passive range of motion of affected arm due to pain. Patient has been using Gene wrap to immobilize her shoulder which helped with her pain. Patient denies numbness on affected arm. Patient was treated with Mahwah and Tylenol which improved slightly. Offered sling to use on affected arm with instruction of stretching exercise several times a day to prevent frozen shoulder. Patient reports her pain started after she slept overnight in awkward position as her right arm was folded in. patient denies any cardiac associated symptoms. Will treat patient's discomfort as musculoskeletal pain. Considered shingles but there is no obvious rash noted at this time. Advised patient and spouse to monitor for signs shingles. Patient discharged to home with small dose of muscle relaxant, Mahwah, and Voltaren gel for pain management. Patient informed narcotic and muscle relaxant precautions. Patient advised gentle stretch on affected arm when severe discomfort it has subsided. Return precautions were discussed with patient and patient verbalized understanding and in agreement with the treatment plan. Discharge Plan Departure Patient Disposition: Home Clinical Impression: Right shoulder pain Qualifiers: Chronicity: acute Qualified Code(s): M25.511 - Pain in right shoulder Discharge Date/Time: 03/12/20 12:26 Instructions: DI for Shoulder Pain Activity Restrictions/Additional Instructions: You have been diagnosed with [acute right shoulder pain, could be right shoulder impingement. Please use sling that has been provided to you for acute pain and shoulder. And you will need to exercise your shoulder several times a day.]. What to do: *Take your medications as directed. Use Tylenol as baseline pain management. You can use 650 mg up to 4 times a day as needed for pain. Apply Voltaren gel on affected painful site 2 to 3 times a day as needed. Use Flexeril which is muscle relaxant at night. Use Mahwah as needed only for severe pain. Mahwah already has 325 mg of Tylenol in a tap. You can take total Tylenol 3000 mg in 24 hour period. Mahwah and Flexeril may cause drowsiness so please avoid taking it together. Please do not drive, drink alcohol, operate heavy equipments while your on these medications. Mahwah can cause constipation so please take precautions as well. For Voltaren gel, Flexeril, Mahwah have been transmitted to [facility] in [place]. *Follow up with your primary care provider in 2-3 days, call for an appointment. Let them know you were seen in the ED and that we asked you to be seen in follow up. *Return to ED if you have any new, worsening, or concerning symptoms, such as [chest pain, breathing difficulty, cold sweats, nausea and vomiting, increasing pain, numbness/weakness on affected arm or any acute concerns]. Prescriptions: New hydrocodone-acetaminophen [Mahwah] 5-325 mg tablet 1 tab PO Q12H PRN (Reason: pain) Qty: 7 RF: 0 diclofenac sodium [Voltaren] 1 % gel 2 gram TOP QID Qty: 100 RF: 0 cyclobenzaprine 5 mg tablet 5 - 10 mg PO DAILY PRN (Reason: muscle spasm) Qty: 7 RF: 0 No Action triamterene-hydrochlorothiazid 37.5-25 mg tablet 1 tab PO DAILY RF: 0 albuterol sulfate [ProAir HFA] 90 mcg/actuation HFA aerosol inhaler 2 puff Inhalation Q4H PRN (Reason: wheezing,cough, or congestion) RF: 0 CoQ-10 1 cap PO DAILY RF: 0 potassium chloride [Klor-Con 10] 10 mEq tablet extended release 10 meq PO DAILY RF: 0 Restasis 0.05 % Dropperette 1 drp ophthalmic (eye) DIRECTED RF: 0 biotin 1 tab PO DAILY RF: 0 magnesium 30 mg tablet 30 mg PO DAILY RF: 0 omega-3 fatty acids [Fish Oil Concentrate] 1,000 mg capsule 1,000 mg PO DAILY RF: 0 cholecalciferol (vitamin D3) 1,000 unit capsule 1,000 unit PO DAILY RF: 0 ascorbic acid (vitamin C) 500 mg capsule 500 mg PO DAILY RF: 0 calcium 1 tab PO DAILY RF: 0 vitafusion 1 dose PO DAILY RF: 0 [id number] 1 tab PO TID RF: 0 Referrals: Baljit Bishop MD [Primary Care Provider] -
[2020-03-12] MEDS: HYDROCODONE/ACET 5/325 TABLET 1 TAB PO (12:10)
[2020-03-12] MEDS: ACETAMINOPHEN 325 MG TABLET PO (12:11)
[2020-03-12 12:22] VITALS: BP 156/68; PULSE 83; RESP 19; O2SAT 98
== END 2020-03-12 12:26 | disposition home or self-care (01) ==
PROVIDERS: Emergency Provider Nurse Practitioner Family; PCP Family Medicine
DX: M25.511 Pain in right shoulder (principal)
CPT/HCPCS: 73000; 73030; 99283; 99284

== ENCOUNTER → 2020-12-19 11:12 | Outpatient (CLI) | payer MEDICARE, OTHER, SELFPAY ==
--- NOTE | 2020-12-19 11:13 | DI.MRI.S_ITS ---
PROCEDURE: MR LUMBAR SPINE WO CON INDICATIONS: lumbar radiculopathy TECHNIQUE: Noncontrast sagittal T1 spin echo and T2 fast echo, sagittal STIR, axial T1 and T2 fast spin echo through the lumbar spine. In cases with scoliosis, additional coronal T2 fast spin echo may be performed. COMPARISON: [facility], , L-SPINE WITHOUT CONTRAST, 11/17/2015, 8:38. [facility], CR, SPINE LUMB MIN 4VW, 10/31/2015, 16:26. FINDINGS: Image quality: Excellent. Alignment and Curvature: 5 lumbar type vertebral bodies are present by plain film. There is mild grade 1 retrolisthesis of L2 on L3 and L3 on L4. Bone Marrow: Marrow is of normal overall signal. No acute vertebral body compression fractures. Mild reactive signal within the endplates adjacent to the L2-L3, L3-L4, and L5-S1 intervertebral discs. Spinal Cord: Conus medullaris terminates at the lower L1 level. Visualized cord demonstrates normal signal and size. Paraspinous Soft Tissues: No paravertebral masses. T12-L1: Mild disc height loss and desiccation. Mild diffuse disc bulge. Mild facet and ligamentum flavum hypertrophy. Mild canal stenosis. No foraminal stenosis. No significant change. L1-L2: Mild disc desiccation and diffuse disc bulge. Mild facet and ligamentum flavum hypertrophy. Mild canal stenosis. No foraminal stenosis. No significant change. L2-L3: Moderate disc height loss and desiccation. Mild diffuse disc bulge. Mild epidural lipomatosis. Mild canal stenosis. Mild bilateral foraminal stenosis. No significant change. L3-L4: Mild disc desiccation and diffuse disc bulge. Mild facet and ligamentum flavum hypertrophy. Mild epidural lipomatosis. Mild canal stenosis. Mild left greater than right foraminal stenosis. No significant change. L4-L5: Mild disc height loss and desiccation. Mild diffuse disc bulge. Mild facet and ligamentum flavum hypertrophy. Mild canal stenosis. Mild right and moderate left foraminal stenosis. No significant change. L5-S1: Moderate disc height loss and desiccation. Mild diffuse disc bulge. Mild bilateral facet hypertrophy. Mild canal stenosis. Mild left and moderate right subarticular foraminal stenosis. IMPRESSION: 1. Multilevel degenerative disc and facet disease, as well as ligamentum flavum hypertrophy and epidural lipomatosis. 2. Mild multilevel canal stenosis. 3. Multilevel foraminal stenosis, worst at L4-L5 and L5-S1, where there are moderate foraminal stenosis. Dictated by: Marissa Saucedo M.D. on 12/19/2020 at 13:21 Approved by: Marissa Saucedo M.D. on 12/19/2020 at 13:24
--- NOTE | 2020-12-19 11:13 | DI.RAD.S_ITS ---
PROCEDURE: XR LUMBAR SPINE MIN 4V INDICATIONS: lumbar radiculopathy TECHNIQUE: 5 views including obliques COMPARISON: [facility], [facility], XR LUMBAR SPINE 2-3V, 11/20/2019, 18:32. [facility], CR, L-SPINE 2-3 VIEWS, 12/12/2015, 13:41. FINDINGS: Bones: 5 nonrib-bearing vertebrae are present. There is normal bony alignment. No vertebral body compression fractures. No suspicious bony lesions. Soft tissues: Overlying bowel gas pattern is normal. No suspicious soft tissue calcifications. Oblique images: No pars defects. IMPRESSION: Mild degenerative disc disease at L1-L2, L3-L4 through L5-S1. There is moderate such degeneration at L2-L3. Facet osteoarthritis becomes progressively more prominent from L3 through S1 with potential for spinal and foraminal stenosis at L4-5 and most prominently at L5-S1. No compression fracture found. Dictated by: Pop Duval M.D. on 12/19/2020 at 14:40 Approved by: Pop Duval M.D. on 12/19/2020 at 14:41
== END ==
PROVIDERS: PCP Family Medicine; Referring Provider Family Medicine; Visit Provider Physical Medicine & Rehabilitation
DX: M48.062 Spinal stenosis, lumbar region with neurogenic claudication (principal); M54.17 Radiculopathy, lumbosacral region; M51.36 Other intervertebral disc degeneration, lumbar region; M47.816 Spondylosis without myelopathy or radiculopathy, lumbar region
CPT/HCPCS: 72110; 72148

== ENCOUNTER → 2020-12-26 08:00 | Outpatient (CLI) | payer MEDICARE, OTHER, SELFPAY ==
[2020-12-26 14:31] LABS: COVID19 -Nasal RAPID Negative (Negative)
== END ==
PROVIDERS: PCP Family Medicine; Visit Provider Physical Medicine & Rehabilitation
DX: Z20.822 Contact with and (suspected) exposure to COVID-19 (principal)
CPT/HCPCS: 87635; C9803

== ENCOUNTER 2020-12-28 10:48 | Outpatient (CLI) | payer MEDICARE, OTHER, SELFPAY ==
[2020-12-28] VITALS (9 sets, daily range): BP systolic 120–185; BP diastolic 61–88; PULSE 77–92; RESP 14–24; TEMP 36.9; O2SAT 92–100
--- NOTE | 2020-12-28 10:51 | DI.RAD.S_ITS ---
PROCEDURE: PAIN L/S TRANSFORAMINAL INJECT INDICATIONS: SPONDYLOSIS COMPARISON: [facility], , PAIN L/S TRANSFORAMINAL INJECT, 01/21/2018, 11:38. FINDINGS: Fluoroscopic spot filming was performed to verify placement of spinal needles at the right L4-L5 foramen level(s), as labeled on the films. Appropriate location(s) of the needle tip(s) was confirmed by injection of iodinated contrast. IMPRESSION: Successful needle tip localization on the right for L4-L5 transforaminal steroid injection Dictated by: Pop Duval M.D. on 12/28/2020 at 12:39 Approved by: Pop Duval M.D. on 12/28/2020 at 12:40
[2020-12-28] MEDS: fentaNYL 100 MCG/2 ML INJ 50 MCG IV (11:32)
[2020-12-28] MEDS: MIDAZOLAM 5 MG/5 ML VIAL IV (11:32)
[2020-12-28] MEDS: IOPAMIDOL 15 ML VIAL 3 ML INJ (11:38)
[2020-12-28] MEDS: DEXAMETHASONE 10 MG/ML VIAL 20 MG INJ (11:38)
[2020-12-28] MEDS: BUPIVACAINE 0.25% (PF) VIAL 2 ML INJ (11:38)
[2020-12-28] MEDS: BETAMETHASONE 30 MG/5 ML MDV 6 MG INJ (11:38)
--- NOTE | 2020-12-28 11:49 | P.PCN_ITS ---
Date/Time/Diagnoses Date of procedure: 12/28/20 Time of procedure: 11:49 Pre-procedure diagnosis: 1. FORAMINAL STENOSIS WITH LE SYMPTOMS Post-procedure diagnosis: same Procedure Notes Procedure: 1. FLUOROSCOPICALLY GUIDED CONTRAST CONTROLLED TRANSFORAMINAL EPIDURAL STEROID INJECTION - RIGHT L4/5 TFESI Indications: Hayde is referred by Dr. John for treatment of Foraminal Stenosis with Right LE Symptoms Physician: Collin Parmar Total Fluoroscopy time (seconds): 9 Total sedation minutes: 12 Complications: none Procedure in detail & Post-procedure care: FINDINGS Foraminal Nerve Root Compression secondary to disc disease and facet hypertrophy DESCRIPTION OF PROCEDURE Following review of allergy and review of potential side effects and complications, including, but not necessarily limited to, infection, allergic reaction, local tissue breakdown, stroke, temporary or permanent nerve injury, paralysis, and possible , the patient indicated that the patient understood and agreed to proceed. An informed consent document was signed by the patient, witnessed by a nurse, and placed in the patient's chart. Additionally, other treatment options including medications, modalities, and physical therapy were reviewed with the patient. After review of previous anaesthesic history and IV conscious sedation the patient was deemed safe to proceed with today?s procedure with IV conscious sedation as ASA class II designation. Safety time-out was performed to confirm patient ID, procedure to be performed and site of procedure. IV sedation was accomplished with a combination of 2mg of Versed and 50mcg of Fentanyl was administered by the RN after DO order, titrated to patient comfort during the course of the procedure while the patient remained responsive to all verbal commands In the prone position following sterile prep and drape of the lumbar region, the right L4/5 posterior neuroforamen was identified fluoroscopically. The skin was anesthetized via a 25-gauge 1.5-inch needle with 1% lidocaine solution. At this point, a 25-gauge 3.5-inch spinal needle was atraumatically introduced and advanced under fluoroscopic guidance through the posterior right L4/5 neuroforamen to approximately the anterior aspect of the canal. Depth was confirmed on lateral view. Following negative aspiration, injection of approximately 1.5cc of Isovue 200 under live fluoroscopy in the AP view confirmed excellent flow along the nerve root, into the epidural space without vascular or intrathecal uptake observed Radiological data, including multiple fluoroscopic views of the lumbosacral spine, reveal a spinal needle at the right L4/5 posterior neuroforamen. Subsequent views show flow of contrast material flowing superiorly and inferiorly along the nerve root confirming epidural flow. Subsequently, a test dose of 1.5 cc of 1% lidocaine solution was administered and patient was observed for two minutes for signs or symptoms of complications, including abdominal pain, shortness of breath, bilateral upper or lower extremity weakness, nausea and vomiting, prior to steroid injection. At this point, a total of 3cc or 20mg of dexamethasone and 6mg of betamethasone was injected without incident. The procedure tolerated the procedure well without signs or symptoms of complications prior to transfer to the recovery area continued monitoring without incident. The patient was then transferred to the recovery area where they were observed for an appropriate time after the injection. The patient reported a VAS score of 7 prior to the procedure and a post- procedure VAS of 0. POST OP INSTRUCTIONS The patient was provided a Pain Log to continue to record their response to the target-specific procedure prior to follow-up visit with their referring physician. Additionally, specific post-injection care instructions and a contact number to our office were provided if concerns arise regarding possible complications associated with the procedure are suspected.
== END 2020-12-28 12:07 | disposition home or self-care (01) ==
PROVIDERS: PCP Family Medicine; Referring Provider Physical Medicine & Rehabilitation; Visit Provider Physical Medicine & Rehabilitation
DX: M48.062 Spinal stenosis, lumbar region with neurogenic claudication (principal); M51.16 Intervertebral disc disorders with radiculopathy, lumbar region
CPT/HCPCS: 64483; 99152; J0702; J1100; J2250; J3010

== ENCOUNTER 2021-03-31 15:13 | Emergency (ER) | payer MEDICARE, OTHER, SELFPAY ==
[2021-03-31 15:19] VITALS: BP 166/76; PULSE 87; RESP 16; TEMP 36.7; O2SAT 98; BMI 29.6
[2021-03-31 15:46] LABS: COVID19 -Nasal RAPID Negative (Negative)
[2021-03-31 16:36] VITALS: PULSE 78; O2SAT 99
--- NOTE | 2021-03-31 16:39 | PC.NURSE ---
Exposed to COVID + Daughter 3 weeks ago. Reports sore throat/headache yesterday and today body aches all over. Has had diarrhea for one month after starting new meds. Dry cough x2 years, seen by marketing content coordinator, but didn't follow up after due to COVID.
[2021-03-31 17:00] VITALS: BP 142/66; PULSE 87
--- NOTE | 2021-03-31 17:22 | ED_ITS ---
HPI - URI/Sore Throat General Chief Complaint: Upper Respiratory Symptoms Stated Complaint: body aches, sore throat, stomach pain/diarrhea Time Seen by Provider: 03/31/21 15:15 History of Present Illness HPI Narrative: 70-year-old female nonsmoker with history of asthma presents with family in the chief complaint of mild headache, sore throat, cough, shortness of breath, body aches. She has had a fever and was exposed to persons known to be positive for COVID. She denies recent travel. She is having chest pain. She generally feels unwell. Related Data Home Medications Medication Instructions Recorded Confirmed magnesium 30 mg tablet 30 mg PO DAILY 04/24/18 03/16/21 omega-3 fatty acids 1,000 mg 1,000 mg PO DAILY 04/24/18 03/16/21 capsule (Fish Oil Concentrate) ascorbic acid (vitamin C) 500 mg 500 mg PO DAILY cap 06/11/18 03/16/21 capsule cholecalciferol (vitamin D3) 25 1,000 unit PO DAILY 06/11/18 03/16/21 mcg (1,000 unit) capsule CoQ-10 1 cap PO DAILY 12/01/18 03/16/21 albuterol sulfate 90 mcg/actuation 2 puff INHALATION Q4H PRN 12/01/18 03/16/21 aerosol inhaler triamterene 37.5 1 tab PO DAILY 12/01/18 03/16/21 mg-hydrochlorothiazide 25 mg tablet calcium 1 tab PO DAILY 06/23/19 03/16/21 [id number] 1 tab PO TID 06/23/19 03/16/21 [Airborne (lysine HCl)] vitafusion 1 dose PO DAILY 06/23/19 03/16/21 biotin 1 tab PO DAILY 09/30/19 03/16/21 potassium chloride 10 mEq 10 meq PO DAILY 09/30/19 03/16/21 tablet,extended release (Klor-Con) acetaminophen 500 mg tablet 500 mg PO QID PRN 12/08/20 03/16/21 (Tylenol Extra Strength) Previous Rx's Medication Instructions Recorded tramadol 50 mg tablet 50 mg PO BID PRN #60 tab 02/16/21 Allergies Allergy/AdvReac Type Severity Reaction Status Date / Time chocolate flavor Allergy Intermediate INCREASED Verified 03/16/21 08:20 [CHOCOLATE FLAVOR] HR, HEADACHE Penicillins [PENICILLINS] Allergy Intermediate HIVES Verified 03/16/21 08:20 oxycodone [OXYCODONE] AdvReac Intermediate N/V, Verified 03/16/21 08:20 HEADACHE Review of Systems Review of Systems Narrative: GENERAL: See HPI HEENT: See HPI. RESPIRATORY: Denies dyspnea, cough, wheezing, hemoptysis, sputum. CARDIOVASCULAR: Denies chest pain, palpitations, orthopnea, edema, GASTROINTESTINAL: Denies nausea, vomiting, abdominal pain, diarrhea, constipation, melena. : Denies dysuria, frequency, incontinence, hematuria, urinary retention. MUSCULOSKELETAL: denies weakness, joint pain, or bony pain SKIN: Denies rash, skin lesions, or other NEUROLOGIC: Denies weakness, headache, numbness, change in speech, confusion, seizures, incoordination. PSYCHIATRIC: No concerning psychosocial issues. 12 point review of systems is negative except for those stated above Patient History Medical History Asthma Bicipital tendinitis of left shoulder DJD of left shoulder Facet arthropathy, lumbar Hypertension Surgical History History of back surgery History of cholecystectomy Family History Father Lung cancer Emphysema (subcutaneous) (surgical) resulting from a procedure Mother Congestive heart failure Social History marital status: Smoking Status: Never smoker alcohol intake: current substance use type: does not use Smoking Status: Never smoker Substance Use Type: does not use Exam Narrative Exam Narrative: GENERAL: [70] year old patient appears stated age. Well- developed patient, in mild distress. Appears to feel ill HEAD: Atraumatic. Normocephalic. EYES: Pupils equal round and reactive. Extraocular motions intact. No scleral icterus. No injection or drainage. ENT: Nose without bleeding, purulent drainage. Throat without erythema, tonsillar hypertrophy or exudate. Airway patent. NECK: Trachea midline. Non tender CARDIOVASCULAR: Regular rate and rhythm without murmurs, gallops, or rubs. RESPIRATORY: Clear to auscultation. Breath sounds equal bilaterally. No wheezes, rales, or rhonchi. GASTROINTESTINAL: Abdomen soft, non-tender, nondistended. EXTREMITIES: No edema or joint tenderness. BACK: Nontender without deformity or crepitance. No flank tenderness. NEURO: AOx3. SKIN: No rash or erythema of visible areas Initial Vital Signs Initial Vital Signs: Vital Signs Temperature 98.1 F 03/31/21 15:19 Pulse Rate 87 03/31/21 15:19 Respiratory Rate 16 03/31/21 15:19 Blood Pressure 166/76 H 03/31/21 15:19 Pulse Oximetry 98 03/31/21 15:19 Course Orders Ordered: Discontinued Medications Sodium Chloride (Normal Saline 0.9%) 1,000 mls @ 1,000 mls/hr IV BOLUS ONE Stop: 03/31/21 18:53 Last Infusion: 03/31/21 20:49 Dose: 0 mls/hr Documented by: Admin: 03/31/21 18:08 Dose: 1,000 mls/hr Documented by: PARAS Reevaluation(s) Reevaluation #1: Patient is feeling much better after above-stated therapies, clearly relieved Vital Signs Vital signs: Vital Signs - 8 hr 03/31/21 15:19 Temperature 98.1 F Pulse Rate 87 Respiratory Rate 16 Blood Pressure 166/76 H Pulse Oximetry 98 MDM - URI/Sore Throat Lab Data Result diagrams: 03/31/21 16:45 03/31/21 16:45 Labs: Lab Results 03/31/21 03/31/21 03/31/21 Range/Units 15:20 16:45 16:45 WBC 13.4 H (4.5-11.0) X10^3/uL RBC 4.33 (4.0-5.2) X10^6/uL Hgb 12.2 (12.0-16.0) g/dL Hct 37.3 (36-46) % MCV 86.2 (80-100) fL MCH 28.2 (26-34) PG MCHC 32.7 (30-36) % RDW 12.9 (11.6-14.8) % Plt Count 184 (150-400) X10^3/uL Neut % (Auto) 67.1 (50-75) % Lymph % (Auto) 24.5 L (25-40) % [place] % (Auto) 5.8 (3-14) % Eos % (Auto) 1.4 L (2-4) % Baso % (Auto) 1.2 (0-2) % Neut # (Auto) 9000 H (9124-0359) /uL Lymph # (Auto) 3300 (4695-7643) /uL [place] # (Auto) 800 (0-900) /uL Eos # (Auto) 200 (0-450) /uL Baso # (Auto) 200 H (0-100) /uL Sodium 140 (137-145) mmol/L Potassium 3.9 (3.4-5.1) mmol/L Chloride 107 (98-107) mmol/L Carbon Dioxide 24 (22-32) mmol/L BUN 26 H (7-17) mg/dL Creatinine 0.89 (0.52-1.04) mg/dL Estimated GFR > 60.0 (>60) mL/min BUN/Creatinine Ratio 29.2 H (6-22) Glucose 88 (80-110) mg/dL Lactate (0.7-2.1) mmol/L Calcium 9.8 (8.4-10.2) mg/dL Magnesium 2.1 (1.6-2.3) mg/dL Total Bilirubin 0.4 (0.2-1.3) mg/dL AST 31 (14-36) IU/L ALT 17 (<35) IU/L Alkaline Phosphatase 98 (38-126) U/L Total Protein 7.5 (6.3-8.2) g/dL Albumin 4.0 (3.5-5.0) g/dL Globulin 3.5 (1.7-4.1) g/dL Albumin/Globulin Ratio 1.1 (1.0-2.8) Lipase 51 (23-300) U/L Urine RBC (0-5/HPF) Urine WBC (0-5/HPF) Ur Squamous Epith Cells (0-5/HPF) Urine Bacteria (None) Ur Culture Indicated? SARS-CoV-2 (PCR) Negative (Negative) 03/31/21 03/31/21 Range/Units 16:45 18:55 WBC (4.5-11.0) X10^3/uL RBC (4.0-5.2) X10^6/uL Hgb (12.0-16.0) g/dL Hct (36-46) % MCV (80-100) fL MCH (26-34) PG MCHC (30-36) % RDW (11.6-14.8) % Plt Count (150-400) X10^3/uL Neut % (Auto) (50-75) % Lymph % (Auto) (25-40) % [place] % (Auto) (3-14) % Eos % (Auto) (2-4) % Baso % (Auto) (0-2) % Neut # (Auto) (4015-6849) /uL Lymph # (Auto) (6066-3801) /uL [place] # (Auto) (0-900) /uL Eos # (Auto) (0-450) /uL Baso # (Auto) (0-100) /uL Sodium (137-145) mmol/L Potassium (3.4-5.1) mmol/L Chloride (98-107) mmol/L Carbon Dioxide (22-32) mmol/L BUN (7-17) mg/dL Creatinine (0.52-1.04) mg/dL Estimated GFR (>60) mL/min BUN/Creatinine Ratio (6-22) Glucose (80-110) mg/dL Lactate 1.1 (0.7-2.1) mmol/L Calcium (8.4-10.2) mg/dL Magnesium (1.6-2.3) mg/dL Total Bilirubin (0.2-1.3) mg/dL AST (14-36) IU/L ALT (<35) IU/L Alkaline Phosphatase (38-126) U/L Total Protein (6.3-8.2) g/dL Albumin (3.5-5.0) g/dL Globulin (1.7-4.1) g/dL Albumin/Globulin Ratio (1.0-2.8) Lipase (23-300) U/L Urine RBC 0-1/hpf (0-5/HPF) Urine WBC 1-5/hpf (0-5/HPF) Ur Squamous Epith Cells 0-1 /hpf D (0-5/HPF) Urine Bacteria None seen (None) Ur Culture Indicated? Specimen cultured SARS-CoV-2 (PCR) (Negative) Point of Care Testing Rapid Strep A Negative Urine Dip Bedside Urine Glucose Negative Bedside Urine Bilirubin - Negative Bedside Urine Ketone - Negative Urine Specific Seibert 1.015 Bedside Urine Occult Blood - Negative Bedside Urine pH 7 Bedside Urine Protein - Negative Bedside Urine Urobilinogen - Negative Bedside Urine Nitrite - Negative Bedside Urine Leukocytes + 70 Esterase Imaging Data Chest x-ray: Radiologist's Impression: [address] [id number] ReportSigned Patient: Hayde Mensah LMR#: [id number]: 9Acct:[id number]/Sex: 70 / FDate of Service: 03/31/21Loc: EDAccession Number: [id number] Procedure: XR acute abdomen series Ordering Provider: Darrius Woods D.O. PROCEDURE: XR ACUTE ABDOMEN SERIES INDICATIONS: Abdominal pain TECHNIQUE: One view chest and two views of the abdomen were acquired. COMPARISON: None. FINDINGS: Surgical changes and devices: Cholecystectomy clips. Chest: Lungs are clear. Heart size is normal. No pleural effusions. No pneumoperitoneum. Abdomen: Bowel gas pattern is normal. Moderate amount of stool noted in the colon. No suspicious calcifications. Visualized solid organ contours appear normal. Bones: No suspicious bony lesions. IMPRESSION: No acute disease process. Moderate amount of stool in the colon. Dictated by: Teresa Aldrich MD, PhD on 03/31/2021 at 18:47 Approved by: Teresa Aldrich MD, PhD on 03/31/2021 at 18:48 MDM Narrative Medical decision making narrative: Multiple etiologies for patient's symptoms considered including: [COVID-19 versus urinary tract infection versus pneumonia versus other] Patient's symptoms improved over duration of stay with above-stated therapies. She has a very reassuring physical exam a, labs. No signs of sepsis Findings and discharge diagnosis discussed with patient/family followed by verbalization of understanding Return precautions discussed with patient/family whom verbalize understanding. Discharge Plan Departure Patient Disposition: Home Clinical Impression: Upper respiratory infection Qualifiers: URI type: unspecified viral URI Qualified Code(s): J06.9 - Acute upper respiratory infection, unspecified Instructions: DI for Viral Syndrome Activity Restrictions/Additional Instructions: *You have been diagnosed with [multiple symptoms likely a consequence of viral syndrome. Labs, Xray, urine, and COVID test are all very reassuring ] *What to do: *Please continue to take your regular medications as directed. [ ] New medication prescriptions sent to your pharmacy: [ ] [ ] New medication written as a paper prescription [x ] No new medications given *Please follow up with your primary care provider in 2-3 days, call for an appointment. Let them know you were seen in the Emergency Department and that we ask that you be seen in follow up. We will electronically transmit a record of today's note if your PCP is in our system *If you do not have a primary care provider please contact the [facility] Resource line at [phone]. They will ask some questions about your medical history and help get you set up with a doctor in the community. *Return to Emergency Department if you should have any new, worsening or concerning symptoms, such as [fever greater than 101 F, shaking chills, worsening pain, persistent vomiting or other bothersome symptoms] Prescriptions: No Action triamterene-hydrochlorothiazid 37.5-25 mg tablet 1 tab PO DAILY RF: 0 albuterol sulfate [ProAir HFA] 90 mcg/actuation HFA aerosol inhaler 2 puff Inhalation Q4H PRN (Reason: wheezing,cough, or congestion) RF: 0 CoQ-10 1 cap PO DAILY RF: 0 potassium chloride [Klor-Con 10] 10 mEq tablet extended release 10 meq PO DAILY RF: 0 biotin 1 tab PO DAILY RF: 0 magnesium 30 mg tablet 30 mg PO DAILY RF: 0 omega-3 fatty acids [Fish Oil Concentrate] 1,000 mg capsule 1,000 mg PO DAILY RF: 0 cholecalciferol (vitamin D3) 1,000 unit capsule 1,000 unit PO DAILY RF: 0 ascorbic acid (vitamin C) 500 mg capsule 500 mg PO DAILY RF: 0 acetaminophen [Tylenol Extra Strength] 500 mg tablet 500 mg PO QID PRNRF: 0 tramadol 50 mg tablet 50 mg PO BID PRN (Reason: pain) Qty: 60 RF: 1 Hold Instructions: Home Medication placed on hold at Doctor's office calcium 1 tab PO DAILY RF: 0 vitafusion 1 dose PO DAILY RF: 0 [id number] 1 tab PO TID RF: 0 Hold Instructions: Home Medication placed on hold at Doctor's office Referrals: David John, [Primary Care Provider] -
[2021-03-31 17:30] VITALS: BP 144/65; PULSE 71; O2SAT 98
--- NOTE | 2021-03-31 17:55 | DI.RAD.S_ITS ---
PROCEDURE: XR ACUTE ABDOMEN SERIES INDICATIONS: Abdominal pain TECHNIQUE: One view chest and two views of the abdomen were acquired. COMPARISON: None. FINDINGS: Surgical changes and devices: Cholecystectomy clips. Chest: Lungs are clear. Heart size is normal. No pleural effusions. No pneumoperitoneum. Abdomen: Bowel gas pattern is normal. Moderate amount of stool noted in the colon. No suspicious calcifications. Visualized solid organ contours appear normal. Bones: No suspicious bony lesions. IMPRESSION: No acute disease process. Moderate amount of stool in the colon. Dictated by: Teresa Aldrich MD, PhD on 03/31/2021 at 18:47 Approved by: Teresa Aldrich MD, PhD on 03/31/2021 at 18:48
[2021-03-31] MEDS: SODIUM CHLORIDE 0.9% 1,000 ML 1000 ML IV (18:08)
[2021-03-31 18:34] LABS: Add Manual Diff / Slide Review NO; Basophils Absolute Auto 200 /uL (0-100); Basophils Percent Auto 1.2 % (0-2); Eosinophils Absolute Auto 200 /uL (0-450); Eosinophils Percent Auto 1.4 % (2-4); Hematocrit 37.3 % (36-46); Hemoglobin 12.2 g/dL (12.0-16.0); Lymphocytes Absolute Auto 3300 /uL (1100-4500); Lymphocytes Percent Auto 24.5 % (25-40); Mean Corpuscular HGB Conc 32.7 % (30-36); Mean Corpuscular Hemoglobin 28.2 PG (26-34); Mean Corpuscular Volume 86.2 fL (80-100); Monocytes Absolute Auto 800 /uL (0-900); Monocytes Percent Auto 5.8 % (3-14); Neutrophils Absolute Auto 9000 /uL (1500-7000); Neutrophils Percent Auto 67.1 % (50-75); Red Blood Cell Count 4.33 X10^6/uL (4.0-5.2); Red Cell Distribution Width 12.9 % (11.6-14.8); White Blood Cell Count 13.4 X10^3/uL (4.5-11.0)
[2021-03-31 18:36] LABS: Alanine Aminotransferase 17 IU/L (<35); Albumin Globulin Ratio 1.1 (1.0-2.8); Alkaline Phosphatase 98 U/L (38-126); Aspartate Aminotransferase 31 IU/L (14-36); BUN Creatinine Ratio 29.2 (6-22); Bilirubin Total 0.4 mg/dL (0.2-1.3); Blood Urea Nitrogen 26 mg/dL (7-17); Calcium 9.8 mg/dL (8.4-10.2); Carbon Dioxide 24 mmol/L (22-32); Chloride 107 mmol/L (98-107); Estimated Glomerular Filt Rate > 60.0 mL/min (>60); Globulin 3.5 g/dL (1.7-4.1); Glucose 88 mg/dL (80-110); HEMOLYSIS 34 (0-50); Lactate (Lactic Acid) 1.1 mmol/L (0.7-2.1); Lipase 51 U/L (23-300); Magnesium 2.1 mg/dL (1.6-2.3); Potassium 3.9 mmol/L (3.4-5.1); Sodium 140 mmol/L (137-145); Total Protein 7.5 g/dL (6.3-8.2)
[2021-03-31 18:58] LABS: Platelet Count 184 X10^3/uL (150-400)
[2021-03-31 19:10] LABS: Bacteria Urine None Seen
[2021-03-31 19:18] LABS: Culture Indicated Urine Specimen Cultured; RBC Urine 0-1/HPF (0-5/HPF); Squamous Epithelial Cell Urine 0-1 /HPF (0-5/HPF); WBC Urine 1-5/HPF (0-5/HPF)
[2021-03-31 20:46] VITALS: BP 126/58; PULSE 81; O2SAT 96
== END 2021-03-31 20:59 | disposition home or self-care (01) ==
PROVIDERS: Emergency Provider Emergency Medicine; PCP Family Medicine
DX: J06.9 Acute upper respiratory infection, unspecified (principal); R10.9 Unspecified abdominal pain; Z20.822 Contact with and (suspected) exposure to COVID-19
CPT/HCPCS: 36415; 74022; 80053; 81003; 81015; 83605; 83690; 83735; 85025; 87040; 87086; 87635; 87880; 96360; 96361; 99284; C9803

== ENCOUNTER → 2022-01-14 13:23 | Outpatient (CLI) | payer MEDICARE, OTHER, SELFPAY ==
[2022-01-14 15:08] LABS: COVID19 -Nasal RAPID Negative (Negative)
== END ==
PROVIDERS: PCP Family Medicine; Visit Provider Physical Medicine & Rehabilitation
DX: Z20.822 Contact with and (suspected) exposure to COVID-19 (principal)
CPT/HCPCS: 87635; C9803

== ENCOUNTER 2022-01-15 14:44 | Outpatient (CLI) | payer MEDICARE, OTHER, SELFPAY ==
[2022-01-15] VITALS (9 sets, daily range): BP systolic 147–194; BP diastolic 66–94; PULSE 76–89; RESP 13–25; TEMP 36.9; O2SAT 97–100
--- NOTE | 2022-01-15 14:45 | DI.RAD.S_ITS ---
PROCEDURE: PAIN L/S TRANSFORAMINAL INJECT INDICATIONS: SPONDYLOSIS COMPARISON: [facility], , PAIN L/S TRANSFORAMINAL INJECT, 12/28/2020, 11:39. FINDINGS: Fluoroscopic spot filming was performed to verify placement of a spinal needle at the L4-L5 level, as labeled on the films. Appropriate location of the needle tip was confirmed by injection of iodinated contrast. IMPRESSION: Intraprocedural examination within normal limits. Dictated by: Rafa Baldwin M.D. on 01/15/2022 at 15:50 Approved by: Rafa Baldwin M.D. on 01/15/2022 at 15:50
[2022-01-15] MEDS: MIDAZOLAM 2 MG/2 ML VIAL IV (15:23)
[2022-01-15] MEDS: BUPIVACAINE 0.25% (PF) VIAL 2 ML INJ (15:26)
[2022-01-15] MEDS: IOPAMIDOL 15 ML VIAL 3 ML INJ (15:26)
[2022-01-15] MEDS: BETAMETHASONE 30 MG/5 ML MDV 6 MG INJ (15:26)
[2022-01-15] MEDS: DEXAMETHASONE 10 MG/ML VIAL 20 MG INJ (15:26)
--- NOTE | 2022-01-15 15:40 | P.PCN_ITS ---
Date/Time/Diagnoses Date of procedure: 01/15/22 Time of procedure: 15:40 Pre-procedure diagnosis: 1. FORAMINAL STENOSIS WITH LE SYMPTOMS Post-procedure diagnosis: same Procedure Notes Procedure: 1. FLUOROSCOPICALLY GUIDED CONTRAST CONTROLLED TRANSFORAMINAL EPIDURAL STEROID INJECTION - RIGHT L4/5 TFESI Indications: Hayde is referred by DARYA Barrientos for treatment of Foraminal Stenosis with Right LE Symptoms Physician: Collin Parmar Total Fluoroscopy time (seconds): 13 Total sedation minutes: 13 Complications: none Procedure in detail & Post-procedure care: FINDINGS Foraminal Nerve Root Compression secondary to disc disease and facet hypertrophy DESCRIPTION OF PROCEDURE Following review of allergy and review of potential side effects and complications, including, but not necessarily limited to, infection, allergic reaction, local tissue breakdown, stroke, temporary or permanent nerve injury, paralysis, and possible , the patient indicated that the patient understood and agreed to proceed. An informed consent document was signed by the patient, witnessed by a nurse, and placed in the patient's chart. Additionally, other treatment options including medications, modalities, and physical therapy were reviewed with the patient. After review of previous anaesthesic history and IV conscious sedation the patient was deemed safe to proceed with today?s procedure with IV conscious sedation as ASA class II designation. Safety time-out was performed to confirm patient ID, procedure to be performed and site of procedure. IV sedation was accomplished with a combination of 2mg of Versed was administered by the RN after DO order, titrated to patient comfort during the course of the procedure while the patient remained responsive to all verbal commands In the prone position following sterile prep and drape of the lumbar region, the right L4/5 posterior neuroforamen was identified fluoroscopically. The skin was anesthetized via a 25-gauge 1.5-inch needle with 1% lidocaine solution. At this point, a 25-gauge 3.5-inch spinal needle was atraumatically introduced and advanced under fluoroscopic guidance through the posterior right L4/5 neuroforamen to approximately the anterior aspect of the canal. Depth was confirmed on lateral view. Following negative aspiration, injection of approximately 1.5cc of Isovue 200 under live fluoroscopy in the AP view confirmed excellent flow along the nerve root, into the epidural space without vascular or intrathecal uptake observed Radiological data, including multiple fluoroscopic views of the lumbosacral spine, reveal a spinal needle at the right L4/5 posterior neuroforamen. Subsequent views show flow of contrast material flowing superiorly and inferiorly along the nerve root confirming epidural flow. Subsequently, a test dose of 1.5 cc of 1% lidocaine solution was administered and patient was observed for two minutes for signs or symptoms of complications, including abdominal pain, shortness of breath, bilateral upper or lower extremity weakness, nausea and vomiting, prior to steroid injection. At this point, a total of 3cc or 20mg of dexamethasone and 6mg of betamethasone was injected without incident. The procedure tolerated the procedure well without signs or symptoms of complications prior to transfer to the recovery area continued monitoring without incident. The patient was then transferred to the recovery area where they were observed for an appropriate time after the injection. The patient reported a VAS score of 7 prior to the procedure and a post- procedure VAS of 0. POST OP INSTRUCTIONS The patient was provided a Pain Log to continue to record their response to the target-specific procedure prior to follow-up visit with their referring physician. Additionally, specific post-injection care instructions and a contact number to our office were provided if concerns arise regarding possible complications associated with the procedure are suspected.
== END 2022-01-15 16:00 | disposition home or self-care (01) ==
LOC: RAD 14:45
PROVIDERS: PCP Nurse Practitioner Family; Referring Provider Physical Medicine & Rehabilitation; Visit Provider Physical Medicine & Rehabilitation
DX: M48.061 Spinal stenosis, lumbar region without neurogenic claudication (principal); M51.16 Intervertebral disc disorders with radiculopathy, lumbar region
CPT/HCPCS: 64483; 99152; J0702; J1100; J2250

== ENCOUNTER 2022-05-08 09:57 | Emergency (ER) | payer MEDICARE, OTHER, SELFPAY ==
[2022-05-08] VITALS (7 sets, daily range): BP systolic 133–145; BP diastolic 61–64; PULSE 72–86; RESP 22–32; TEMP 36.5; O2SAT 98–100; BMI 31.9
--- NOTE | 2022-05-08 10:23 | DI.RAD.S_ITS ---
PROCEDURE: XR CHEST 1V INDICATIONS: chest pain TECHNIQUE: One view of the chest was acquired. COMPARISON: [facility], CR, XR CHEST 1V, 09/30/2019, 14:17. [facility], CR, XR CHEST 1V, 01/03/2019, 8:09. FINDINGS: Surgical changes and devices: None. Lungs and pleura: Lungs are clear. No pleural effusions or pneumothorax. Mediastinum: Mediastinal contours appear normal. Heart size is normal. Bones and chest wall: No suspicious bony lesions. Overlying soft tissues appear unremarkable. IMPRESSION: No acute cardiopulmonary abnormality. Dictated by: Leonardo Wooten M.D. on 05/08/2022 at 10:44 Approved by: Leonardo Wooten M.D. on 05/08/2022 at 10:46
--- NOTE | 2022-05-08 10:30 | ED_ITS ---
HPI - SOB/Dyspnea General Chief Complaint: Shortness of Breath/Dyspnea Stated Complaint: cough,shortness of breath Time Seen by Provider: 05/08/22 10:10 Source: patient and family Mode of arrival: Ambulatory Limitations: no limitations History of Present Illness HPI Narrative: Patient is a 71-year-old female history of seasonal allergies today with in increased shortness of breath and cough. She said she was diagnosed with COVID by a home test about 2 weeks ago. Walk-in clinic and gave her 10 days worth of prednisone steroid. She finished that 5 days ago. Since then she has had increasing shortness of breath cough and chest tightness. She denies any fever. She says she is extremely short of breath whenever she gets up and moves around. She denies any orthopnea no peripheral edema. She has a cough every time she takes a breath. Related Data Home Medications Medication Instructions Recorded Confirmed magnesium 30 mg tablet 30 mg PO DAILY 04/24/18 01/09/22 omega-3 fatty acids 1,000 mg 1,000 mg PO DAILY 04/24/18 01/09/22 capsule (Fish Oil Concentrate) ascorbic acid (vitamin C) 500 mg 500 mg PO DAILY 06/11/18 01/09/22 capsule cholecalciferol (vitamin D3) 25 1,000 unit PO DAILY 06/11/18 01/09/22 mcg (1,000 unit) capsule albuterol sulfate 90 mcg/actuation 2 puff inhalation Q4H PRN 12/01/18 01/09/22 aerosol inhaler wheezing,cough, or congestion triamterene 37.5 1 tab PO DAILY 12/01/18 01/09/22 mg-hydrochlorothiazide 25 mg tablet potassium chloride 10 mEq 10 meq PO DAILY 09/30/19 01/09/22 tablet,extended release (Klor-Con) acetaminophen 500 mg tablet 500 mg PO QID PRN 12/08/20 01/09/22 (Tylenol Extra Strength) ibuprofen 200 mg tablet 200 mg PO Q6H PRN 01/09/22 01/09/22 lactobacillus combination no.9 4 4,000 mmu cells PO DAILY 01/09/22 01/09/22 billion cell capsule (Adult 50 Plus Probiotic) Previous Rx's Medication Instructions Recorded diazepam 10 mg tablet (Valium) 10 mg PO .COMPLEX PRN 1-2 prior to 05/25/22 MRI and for possible steroid flare #10 tabs albuterol sulfate 90 mcg/actuation 2 puff inhalation Q4-6H PRN 05/08/22 aerosol inhaler shortness of breath or wheezing #8.5 grams prednisone 10 mg tablet 10 mg PO DAILY #30 tabs 05/08/22 Allergies Allergy/AdvReac Type Severity Reaction Status Date / Time chocolate flavor Allergy Intermediate INCREASED Verified 03/16/21 08:20 [CHOCOLATE FLAVOR] HR, HEADACHE Penicillins [PENICILLINS] Allergy Intermediate HIVES Verified 03/16/21 08:20 oxycodone [OXYCODONE] AdvReac Intermediate N/V, Verified 03/16/21 08:20 HEADACHE Review of Systems Review of Systems Narrative: GENERAL: Denies chills, fatigue, malaise, fever, sweats, travel HEENT: Denies sinus pain, ear pain, sore throat, difficulty swallowing, neck pa in RESPIRATORY: See HPI CARDIOVASCULAR: Denies chest pain, palpitations, orthopnea, edema GASTROINTESTINAL: Denies nausea, vomiting, abdominal pain, diarrhea, constipation, melena. : Denies dysuria, frequency, incontinence, hematuria, urinary retention, flank pain. MUSCULOSKELETAL: Denies weakness, joint pain, or bony pain SKIN: No rash, no erythema, no pruritus NEUROLOGIC: Denies weakness, dizziness, headache, numbness, change in speech, confusion PSYCHIATRIC: No concerning psychosocial issues. 12 point review of systems is negative except for those stated above and HPI Patient History Medical History Asthma Bicipital tendinitis of left shoulder DJD of left shoulder Facet arthropathy, lumbar Hypertension Right knee DJD Surgical History History of back surgery History of cholecystectomy Family History Father Lung cancer Emphysema (subcutaneous) (surgical) resulting from a procedure Mother Congestive heart failure Social History marital status: Smoking Status: Never smoker alcohol intake: current substance use type: does not use Smoking Status: Never smoker Substance Use Type: does not use Exam Initial Vital Signs Initial Vital Signs: Vital Signs Temperature 97.7 F 05/08/22 10:00 Pulse Rate 86 05/08/22 10:00 Respiratory Rate 32 H 05/08/22 10:00 Blood Pressure 141/63 H 05/08/22 10:00 Pulse Oximetry 100 05/08/22 10:00 Oxygen Delivery Method 05/08/22 10:00 GENERAL: 71-year-old female who has some respiratory distress. HEENT: Head atraumatic,EOMI, pupils reactive, face symmetric, moist mucous membranes CARDIOVASCULAR: Regular rate and rhythm without murmurs, rubs or gallops. RESPIRATORY: Tachypneic decreased breath sounds bilaterally coughing every time she takes a breath ABDOMEN: Soft, nontender. Normoactive bowel sounds all 4 quadrants. No guarding or rebound. EXTREMITIES: Normal range of motion, no clubbing or edema. Neurovascularly intact NEUROLOGICAL: Alert and oriented x4 SKIN: Warm, dry, no laceration, no petechiae, no rashes or lesions. Course Orders Ordered: Discontinued Medications Albuterol/Ipratropium (Albuterol/Ipratropium 3 Ml Ampul) 3 ml INH NOW ONE Stop: 05/08/22 10:31 Last Admin: 05/08/22 10:34 Dose: 3 ml Documented By: ANSLEY Methylprednisolone (Methylprednisolone 125 Mg/2 Ml Vial) 125 mg IV NOW ONE Stop: 05/08/22 10:31 Last Admin: 05/08/22 10:46 Dose: 125 mg Documented By: ERIKA Vital Signs Vital signs: Vital Signs - 8 hr 05/08/22 11:30 05/08/22 11:30 Pulse Rate 74 Respiratory Rate 22 Blood Pressure 134/64 Pulse Oximetry 99 MDM - SOB/Dyspnea Lab Data Result diagrams: 05/08/22 10:23 05/08/22 10:23 Labs: Lab Results 05/08/22 05/08/22 05/08/22 Range/Units 10:23 10:23 10:23 WBC 8.9 (4.5-11.0) X10^3/uL RBC 4.24 (4.0-5.2) X10^6/uL Hgb 12.3 (12.0-16.0) g/dL Hct 36.0 (36-46) % MCV 85.0 (80-100) fL MCH 28.9 (26-34) PG MCHC 34.0 (30-36) % RDW 14.2 (11.6-14.8) % Plt Count 271 (150-400) X10^3/uL Neut % (Auto) 59.0 (50-75) % Lymph % (Auto) 29.0 (25-40) % [place] % (Auto) 5.8 (3-14) % Eos % (Auto) 5.7 H (2-4) % Baso % (Auto) 0.5 (0-2) % Neut # (Auto) 5300 (9842-6812) /uL Lymph # (Auto) 2600 (4408-7222) /uL [place] # (Auto) 500 (0-900) /uL Eos # (Auto) 500 H (0-450) /uL Baso # (Auto) 0 (0-100) /uL PT 11.8 (10.1-12.7) SECONDS INR 1.0 (0.9-1.3) APTT 28 (26-36) SECONDS D-Dimer 928 H (<500) ng/ml Sodium 138 (137-145) mmol/L Potassium 3.9 (3.4-5.1) mmol/L Chloride 101 (98-107) mmol/L Carbon Dioxide 32 (22-32) mmol/L BUN 21 H (7-17) mg/dL Creatinine 0.89 (0.52-1.04) mg/dL Estimated GFR > 60 (>60) mL/min BUN/Creatinine Ratio 23.6 H (6-22) Glucose 92 (80-110) mg/dL Calcium 9.1 (8.4-10.2) mg/dL Magnesium 1.8 (1.6-2.3) mg/dL Total Bilirubin 0.4 (0.2-1.3) mg/dL AST 21 (14-36) IU/L ALT 24 (<35) IU/L Alkaline Phosphatase 99 (38-126) U/L Total Creatine Kinase 21 L (30-135) U/L CK-MB (CK-2) TNP CK-MB (CK-2) Rel Index TNP Troponin I < 0.012 (0.01-0.034) ng/mL NT-Pro-B Natriuret Pep 170 H (<125) pg/mL Total Protein 7.1 (6.3-8.2) g/dL Albumin 3.8 (3.5-5.0) g/dL Globulin 3.3 (1.7-4.1) g/dL Albumin/Globulin Ratio 1.2 (1.0-2.8) Lipase 70 (23-300) U/L Imaging Data Chest x-ray: Radiologist's Impression: [address] [address] XRay Report Signed Patient: Hayde Mensah MR#: [id number] : 1950 Acct:[id number] Age/Sex: 71 / F Date of Service: 05/08/22 Loc: ED Accession Number: [id number] ?? Procedure: XR chest 1V Ordering Provider: Melly Temple D.O. PROCEDURE:? XR CHEST 1V ? INDICATIONS:? chest pain ? TECHNIQUE:? One view of the chest was acquired.? ? COMPARISON:? [facility], CR, XR CHEST 1V, 09/30/2019, 14:17.? [facility], CR, XR CHEST 1V, 01/03/2019, 8:09. ? FINDINGS:? ? Surgical changes and devices:? None.? ? Lungs and pleura:? Lungs are clear.? No pleural effusions or pneumothorax.? ? Mediastinum:? Mediastinal contours appear normal.? Heart size is normal.? ? Bones and chest wall:? No suspicious bony lesions.? Overlying soft tissues appear unremarkable.? ? IMPRESSION:? No acute cardiopulmonary abnormality. ? ? Dictated by: Leonardo Wooten M.D. on 05/08/2022 at 10:44 ? ? ECG Data Interpretation: Normal sinus rhythm rate 75 [place] interval 146 QRS [address] changes no T- wave inversion MDM Narrative Medical decision making narrative: Patient presents with cough shortness of breath and tightness. 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 This seems to be what is. She coughs every time she takes a deep breath. She says that she has been testing for COVID and finally yesterday she had a negative COVID test. She is afebrile she has no leukocytosis. Her chest x-ray is negative. I do not think this is infectious. D-dimer is mildly elevated at 900 however symptoms are not consistent with a pulmonary embolism. She is not hypoxic. She is overall feeling significantly better after Solu-Medrol and a DuoNeb. At this time will put her back on steroids. She is given a spacer and albuterol inhaler. Discharge Plan Departure Patient Disposition: Home Clinical Impression: Asthma exacerbation Instructions: DI for Asthma -- Adult Activity Restrictions/Additional Instructions: *You have been diagnosed with asthma exacerbation *What to do: At this time no need for antibiotics. Continue to rest and monitor *Continue to take medications as directed--> [facility] Prednisone 40 mg for 3 days, 30 mg for 3 days, 20 mg for 3 days and 10 mg for 3 Albuterol inhaler 1-2 puffs every 4 hours if needed for coughing spells or shortness of breath, use spacer *Follow up with your primary care provider in 2-3 days or call [phone] *Return to ER if you should have increasing shortness of breath difficulty speaking, increasing chest pain or any new, worsening or concerning symptoms Prescriptions: New prednisone 10 mg tablet 10 mg PO DAILY Qty: 30 0RF Rx Instructions: day 1-3: 40 mg once a day day 4-6: 30 mg once a day day 7-9: 20 mg once a day day 10-12: 10 mg once a day albuterol sulfate 90 mcg/actuation HFA aerosol inhaler 2 puff INHALATION Q4-6H PRN (Reason: shortness of breath or wheezing) Qty: 8.5 0RF No Action diazepam [Valium] 10 mg tablet 10 mg PO .COMPLEX MDD 3 tabs PRN (Reason: 1-2 prior to MRI and for possible steroid flare) Qty: 10 0RF Rx Instructions: 10 mg PO PRN; triamterene-hydrochlorothiazid 37.5-25 mg tablet 1 tab PO DAILY albuterol sulfate [ProAir HFA] 90 mcg/actuation HFA aerosol inhaler 2 puff Inhalation Q4H PRN (Reason: wheezing,cough, or congestion) Label Comments: INHALE 2 PUFFS BY MOUTH UP TO EVERY 4 HOURS NEEDED FOR WHEEZING/COUGH OR CHEST CONGESTION potassium chloride [Klor-Con 10] 10 mEq tablet extended release 10 meq PO DAILY magnesium 30 mg tablet 30 mg PO DAILY omega-3 fatty acids [Fish Oil Concentrate] 1,000 mg capsule 1,000 mg PO DAILY cholecalciferol (vitamin D3) 1,000 unit capsule 1,000 unit PO DAILY ascorbic acid (vitamin C) 500 mg capsule 500 mg PO DAILY acetaminophen [Tylenol Extra Strength] 500 mg tablet 500 mg PO QID PRN ibuprofen 200 mg tablet 200 mg PO Q6H PRN Adult 50 Plus Probiotic 4 billion cell capsule 4,000 mmu cells PO DAILY Rx Instructions: administer with a meal Referrals: Rhina Barrientos ARNP [Primary Care Provider] - Visit Report Forms: Patient Portal/API
[2022-05-08 10:32] LABS: Prothrombin Time 11.8 SECONDS (10.1-12.7)
[2022-05-08 10:33] LABS: D Dimer 928 ng/ml (<500)
[2022-05-08 10:34] LABS: PTT Partial Thromboplastin Tim 28 SECONDS (26-36)
[2022-05-08] MEDS: ALBUTEROL/IPRATROPIUM 3 ML AMPUL INH (10:34)
[2022-05-08 10:37] LABS: Add Manual Diff / Slide Review NO; Basophils Absolute Auto 0 /uL (0-100); Basophils Percent Auto 0.5 % (0-2); Eosinophils Absolute Auto 500 /uL (0-450); Eosinophils Percent Auto 5.7 % (2-4); Hemoglobin 12.3 g/dL (12.0-16.0); Lymphocytes Absolute Auto 2600 /uL (1100-4500); Mean Corpuscular Hemoglobin 28.9 PG (26-34); Monocytes Absolute Auto 500 /uL (0-900); Monocytes Percent Auto 5.8 % (3-14); Neutrophils Absolute Auto 5300 /uL (1500-7000); Platelet Count 271 X10^3/uL (150-400); Red Blood Cell Count 4.24 X10^6/uL (4.0-5.2); Red Cell Distribution Width 14.2 % (11.6-14.8); White Blood Cell Count 8.9 X10^3/uL (4.5-11.0)
[2022-05-08 10:43] LABS: Alanine Aminotransferase 24 IU/L (<35); Albumin 3.8 g/dL (3.5-5.0); Albumin Globulin Ratio 1.2 (1.0-2.8); Alkaline Phosphatase 99 U/L (38-126); Aspartate Aminotransferase 21 IU/L (14-36); BUN Creatinine Ratio 23.6 (6-22); Bilirubin Total 0.4 mg/dL (0.2-1.3); Blood Urea Nitrogen 21 mg/dL (7-17); Calcium 9.1 mg/dL (8.4-10.2); Carbon Dioxide 32 mmol/L (22-32); Chloride 101 mmol/L (98-107); Creatine Kinase 21 U/L (30-135); Estimated Glomerular Filt Rate > 60 mL/min (>60); Globulin 3.3 g/dL (1.7-4.1); Glucose 92 mg/dL (80-110); HEMOLYSIS < 15 (0-50); Lipase 70 U/L (23-300); Magnesium 1.8 mg/dL (1.6-2.3); Potassium 3.9 mmol/L (3.4-5.1); Sodium 138 mmol/L (137-145); Total Protein 7.1 g/dL (6.3-8.2)
[2022-05-08] MEDS: methylPREDNISolone 125 MG/2 ML VIAL IV (10:46)
[2022-05-08 10:55] LABS: NT-proBNP (BNP-Adult 18+) 170 pg/mL (<125); Troponin I < 0.012 ng/mL (0.01-0.034)
== END 2022-05-08 12:25 | disposition home or self-care (01) ==
PROVIDERS: Emergency Provider Emergency Medicine; PCP Nurse Practitioner Family
DX: J45.901 Unspecified asthma with (acute) exacerbation (principal); R07.9 Chest pain, unspecified; R05.9 Cough, unspecified
CPT/HCPCS: 36415; 71045; 80053; 82550; 83690; 83735; 83880; 84484; 85025; 85379; 85610; 85730; 93005; 94640; 96374; 99284; J2930

== ENCOUNTER 2022-07-06 22:40 | Emergency (ER) | payer MEDICARE, OTHER, SELFPAY ==
[2022-07-06 22:54] VITALS: BP 151/67; PULSE 84; RESP 20; TEMP 35.7; O2SAT 98; BMI 31.1
--- NOTE | 2022-07-07 00:07 | ED_ITS ---
HPI - General Adult General Chief complaint: Urogenital-Female Stated complaint: RIGHT SIDE KIDNEY PAIN Time Seen by Provider: 07/06/22 23:40 Source: patient Mode of arrival: Ambulatory Limitations: no limitations History of Present Illness HPI narrative: 71-year-old female here for evaluation of right-sided flank pain that is radiating around to the front. She went to bed not having any symptoms and then woke up with pain in the right side of her back. No rashes. No urinary symptoms. No change in bowel habits. No nausea vomiting. No fevers. Never had anything like this in the past. Related Data Home Medications Medication Instructions Recorded Confirmed magnesium 30 mg tablet 30 mg PO DAILY 04/24/18 01/09/22 omega-3 fatty acids 1,000 mg 1,000 mg PO DAILY 04/24/18 01/09/22 capsule (Fish Oil Concentrate) ascorbic acid (vitamin C) 500 mg 500 mg PO DAILY 06/11/18 01/09/22 capsule cholecalciferol (vitamin D3) 25 1,000 unit PO DAILY 06/11/18 01/09/22 mcg (1,000 unit) capsule albuterol sulfate 90 mcg/actuation 2 puff inhalation Q4H PRN 12/01/18 01/09/22 aerosol inhaler wheezing,cough, or congestion triamterene 37.5 1 tab PO DAILY 12/01/18 01/09/22 mg-hydrochlorothiazide 25 mg tablet potassium chloride 10 mEq 10 meq PO DAILY 09/30/19 01/09/22 tablet,extended release (Klor-Con) acetaminophen 500 mg tablet 500 mg PO QID PRN 12/08/20 01/09/22 (Tylenol Extra Strength) ibuprofen 200 mg tablet 200 mg PO Q6H PRN 01/09/22 01/09/22 lactobacillus combination no.9 4 4,000 mmu cells PO DAILY 01/09/22 01/09/22 billion cell capsule (Adult 50 Plus Probiotic) Previous Rx's Medication Instructions Recorded diazepam 10 mg tablet (Valium) 10 mg PO .COMPLEX PRN 1-2 prior to 01/16/22 MRI and for possible steroid flare #10 tabs albuterol sulfate 90 mcg/actuation 2 puff inhalation Q4-6H PRN 05/08/22 aerosol inhaler shortness of breath or wheezing #8.5 grams prednisone 10 mg tablet 10 mg PO DAILY #30 tabs 05/08/22 Allergies Allergy/AdvReac Type Severity Reaction Status Date / Time chocolate flavor Allergy Intermediate INCREASED Verified 03/16/21 08:20 [CHOCOLATE FLAVOR] HR, HEADACHE Penicillins [PENICILLINS] Allergy Intermediate HIVES Verified 03/16/21 08:20 oxycodone [OXYCODONE] AdvReac Intermediate N/V, Verified 03/16/21 08:20 HEADACHE Review of Systems Constitutional Constitutional: Reports system reviewed and no additional complaints, except as documented Gastrointestinal Gastrointestinal: Reports system reviewed and no additional complaints, except as documented Genitourinary Genitourinary: Reports system reviewed and no additional complaints, except as documented Musculoskeletal Musculoskeletal: Reports system reviewed and no additional complaints, except as documented Integumentary/Breasts Skin/Breast: Reports system reviewed and no additional complaints, except as documented Hematologic/Lymphatic On Anticoagulants: No Patient History Medical History Asthma Bicipital tendinitis of left shoulder DJD of left shoulder Facet arthropathy, lumbar Hypertension Right knee DJD Surgical History History of back surgery History of cholecystectomy Family History Father Lung cancer Emphysema (subcutaneous) (surgical) resulting from a procedure Mother Congestive heart failure Social History marital status: Smoking Status: Never smoker alcohol intake: current substance use type: does not use Smoking Status: Never smoker Substance Use Type: does not use Exam Initial Vital Signs Initial Vital Signs: Vital Signs Temperature 96.3 F L 07/06/22 22:54 Pulse Rate 84 07/06/22 22:54 Respiratory Rate 20 07/06/22 22:54 Blood Pressure 151/67 H 07/06/22 22:54 Pulse Oximetry 98 07/06/22 22:54 Oxygen Delivery Method 07/06/22 22:54 HENKY Head: normal to inspection and normocephalic Resp Effort & Inspection: normal respiratory effort Auscultation: clear to auscultation bilaterally Cardio Rate: regular rate Rhythm: regular rhythm GI Inspection: normal to inspection and no edema Palpation: tender (Right-sided abdomen) Back/Spine/Pelvis Back: CVA tenderness right Thoracic/Lumbar Spine: paraspinal tenderness and No lumbar spinal tenderness Skin General: no rashes or lesions noted Neuro General: patient alert, patient awake and moves all extremities Speech: speech normal Extrem General: normal to inspection and capillary refill normal Course Orders Ordered: ED Orders 07/07/22 00:07 CT abdomen pelvis w con Stat 07/07/22 00:30 Complete Blood Count AUTO DIFF Stat Comprehensive Metabolic Panel Stat Lipase Stat Discontinued Medications Cyclobenzaprine HCl (Cyclobenzaprine 10 Mg Prepack) 1 bottle MISC SEEINSTR ONE Stop: 07/07/22 01:55 Last Admin: 07/07/22 02:01 Dose: 1 bottle Documented By: SAIDA Sodium Chloride (Normal Saline 0.9%) 1,000 mls @ 1,000 mls/hr IV BOLUS ONE Stop: 07/07/22 01:06 Last Admin: 07/07/22 01:55 Dose: Not Given Documented By: DENISE Vital Signs Vital signs: Vital Signs - 8 hr 07/06/22 22:54 07/07/22 02:04 Temperature 96.3 F L Pulse Rate 84 75 Respiratory Rate 20 16 Blood Pressure 151/67 H 142/78 H Pulse Oximetry 98 99 Oxygen Delivery Method Room Air Room Air Medical Decision Making Lab Data Lab results reviewed: Yes I reviewed the patient's lab results. Result diagrams: 07/07/22 00:30 07/07/22 00:30 Labs: Lab Results 07/07/22 07/07/22 Range/Units 00:30 00:30 WBC 8.7 (4.5-11.0) X10^3/uL RBC 4.09 (4.0-5.2) X10^6/uL Hgb 11.6 L (12.0-16.0) g/dL Hct 34.8 L (36-46) % MCV 85.0 (80-100) fL MCH 28.4 (26-34) PG MCHC 33.4 (30-36) % RDW 13.0 (11.6-14.8) % Plt Count 302 (150-400) X10^3/uL Neut % (Auto) 48.5 L (50-75) % Lymph % (Auto) 39.5 (25-40) % [place] % (Auto) 7.6 (3-14) % Eos % (Auto) 3.6 (2-4) % Baso % (Auto) 0.8 (0-2) % Neut # (Auto) 4200 (2973-8419) /uL Lymph # (Auto) 3400 (7180-7948) /uL [place] # (Auto) 700 (0-900) /uL Eos # (Auto) 300 (0-450) /uL Baso # (Auto) 100 (0-100) /uL Sodium 137 (137-145) mmol/L Potassium 3.8 (3.4-5.1) mmol/L Chloride 103 (98-107) mmol/L Carbon Dioxide 28 (22-32) mmol/L BUN 25 H (7-17) mg/dL Creatinine 1.03 (0.52-1.04) mg/dL Estimated GFR 57 L (>60) mL/min BUN/Creatinine Ratio 24.3 H (6-22) Glucose 117 H (80-110) mg/dL Calcium 9.1 (8.4-10.2) mg/dL Total Bilirubin 0.3 (0.2-1.3) mg/dL AST 21 (14-36) IU/L ALT 17 (<35) IU/L Alkaline Phosphatase 95 (38-126) U/L Total Protein 6.8 (6.3-8.2) g/dL Albumin 3.6 (3.5-5.0) g/dL Globulin 3.2 (1.7-4.1) g/dL Albumin/Globulin Ratio 1.1 (1.0-2.8) Lipase 69 (23-300) U/L Urine Dip Bedside Urine Glucose Negative Bedside Urine Bilirubin - Negative Bedside Urine Ketone - Negative Urine Specific [place] 1.020 Bedside Urine Occult Blood - Negative Bedside Urine pH 6.0 Bedside Urine Protein - Negative Bedside Urine Urobilinogen - Negative Bedside Urine Nitrite - Negative Bedside Urine Leukocytes - Negative Esterase Point of care testing: Urine Dip Bedside Urine Glucose Negative Bedside Urine Bilirubin - Negative Bedside Urine Ketone - Negative Urine Specific [place] 1.020 Bedside Urine Occult Blood - Negative Bedside Urine pH 6.0 Bedside Urine Protein - Negative Bedside Urine Urobilinogen - Negative Bedside Urine Nitrite - Negative Bedside Urine Leukocytes - Negative Esterase Imaging Data CT scan - abdomen/pelvis: Radiologist's Impression: [address] [address] [address] Scan Report Signed Patient: Hayde Mensah MR#: [id number] : 1950 Acct:[id number] Age/Sex: 71 / F Date of Service: 07/07/22 Loc: ED Accession Number: [id number] ?? Procedure: CT abdomen pelvis w con Ordering Provider: Aurelio Perry D.O. PROCEDURE:? CT ABDOMEN PELVIS W CON ? INDICATIONS:? Right side flank pain ? TECHNIQUE:? After the administration of intravenous contrast, axial sections acquired from the lung bases to the pubic symphysis.? Coronal and sagittal reformats were performed.? For radiation dose reduction, the following was used:? automated exposure control, adjustment of mA and/or kV according to patient size.? ? COMPARISON:? [facility], CT, CT ABDOMEN PELVIS W CON, 09/30/2019, 16:40.? [facility], CT, CT ABDOMEN PELVIS W CON, 01/03/2019, 10:56. ? FINDINGS:? Image quality:? Excellent.? ? Lung bases:? Unremarkable. Heart:? No significant findings. ? ABDOMEN: Liver:? Unchanged-a dense calcification within the right posterior hepatic segment is again seen as it has been on multiple prior CT scans..? ? Gallbladder:? Surgically absent.? ? Biliary ducts:? Unremarkable.? ? Pancreas:? Unremarkable.? ? Spleen:? Unremarkable.? ? Adrenal Glands:? Unremarkable.? ? Kidneys and Ureters:? Unremarkable.? ? ? Stomach and Bowel:? Stomach, small bowel loops, and colon are unremarkable.? Peritoneum:? No abnormal intraperitoneal fluid.? No free air.? ? Ventral Wall: ? No hernias.? Abdominal Nodes:? No retroperitoneal or mesenteric adenopathy by size criteria.? Vessels:? Aorta and inferior vena cava are normal in size.? ? PELVIS: Pelvic Organs:? Unremarkable.? ? Bladder:? Unremarkable.? ? Pelvic Nodes: No enlarged lymph nodes.? Miscellaneous: No hernias are seen. ? ? ? Bones:? Unremarkable.? IMPRESSION:? Prior cholecystectomy.? No urinary tract stone or obstruction is found.? A normal or abnormal appendix could not be located but there is no secondary CT evidence of appendicitis at the right lower quadrant.? Overall, a source of right-sided flank pain is not seen. ? ? Dictated by: Pop Duval M.D. on 07/07/2022 at 1:25 ? ? Approved by: Pop Duval M.D. on 07/07/2022 at 1:27 MDM Narrative Medical decision making narrative: CT scan today does not show any signs of acute pathology. She is no skin changes over the area concerning for zoster. She is afebrile. Low concern for appendicitis. Low concern for pyelonephritis. I did discuss with her the lack of a definitive diagnosis although I do have a strong suspicion this is musculo skeletal. She was given return precautions and follow-up instructions. She expressed understanding and agreement. Discharge Plan Departure Patient Disposition: Home Clinical Impression: Back pain Activity Restrictions/Additional Instructions: Recommend that he is the muscle relaxers as needed and as directed. You can continue to do Tylenol/ibuprofen for discomfort. If you start to develop a rash or have any other new symptoms please return to the emergency department for further evaluation. Prescriptions: No Action diazepam [Valium] 10 mg tablet 10 mg PO .COMPLEX MDD 3 tabs PRN (Reason: 1-2 prior to MRI and for possible steroid flare) Qty: 10 0RF Rx Instructions: 10 mg PO PRN; prednisone 10 mg tablet 10 mg PO DAILY Qty: 30 0RF Rx Instructions: day 1-3: 40 mg once a day day 4-6: 30 mg once a day day 7-9: 20 mg once a day day 10-12: 10 mg once a day albuterol sulfate 90 mcg/actuation HFA aerosol inhaler 2 puff INHALATION Q4-6H PRN (Reason: shortness of breath or wheezing) Qty: 8.5 0RF triamterene-hydrochlorothiazid 37.5-25 mg tablet 1 tab PO DAILY albuterol sulfate [ProAir HFA] 90 mcg/actuation HFA aerosol inhaler 2 puff Inhalation Q4H PRN (Reason: wheezing,cough, or congestion) Label Comments: INHALE 2 PUFFS BY MOUTH UP TO EVERY 4 HOURS NEEDED FOR WHEEZING/COUGH OR CHEST CONGESTION potassium chloride [Klor-Con 10] 10 mEq tablet extended release 10 meq PO DAILY magnesium 30 mg tablet 30 mg PO DAILY omega-3 fatty acids [Fish Oil Concentrate] 1,000 mg capsule 1,000 mg PO DAILY cholecalciferol (vitamin D3) 1,000 unit capsule 1,000 unit PO DAILY ascorbic acid (vitamin C) 500 mg capsule 500 mg PO DAILY acetaminophen [Tylenol Extra Strength] 500 mg tablet 500 mg PO QID PRN ibuprofen 200 mg tablet 200 mg PO Q6H PRN Adult 50 Plus Probiotic 4 billion cell capsule 4,000 mmu cells PO DAILY Rx Instructions: administer with a meal Referrals: Rhina Barrientos ARNP [Primary Care Provider] - Visit Report Forms: Patient Portal/API
--- NOTE | 2022-07-07 00:07 | DI.CT.S_ITS ---
PROCEDURE: CT ABDOMEN PELVIS W CON INDICATIONS: Right side flank pain TECHNIQUE: After the administration of intravenous contrast, axial sections acquired from the lung bases to the pubic symphysis. Coronal and sagittal reformats were performed. For radiation dose reduction, the following was used: automated exposure control, adjustment of mA and/or kV according to patient size. COMPARISON: [facility], CT, CT ABDOMEN PELVIS W CON, 09/30/2019, 16:40. [facility], CT, CT ABDOMEN PELVIS W CON, 01/03/2019, 10:56. FINDINGS: Image quality: Excellent. Lung bases: Unremarkable. Heart: No significant findings. ABDOMEN: Liver: Unchanged-a dense calcification within the right posterior hepatic segment is again seen as it has been on multiple prior CT scans.. Gallbladder: Surgically absent. Biliary ducts: Unremarkable. Pancreas: Unremarkable. Spleen: Unremarkable. Adrenal Glands: Unremarkable. Kidneys and Ureters: Unremarkable. Stomach and Bowel: Stomach, small bowel loops, and colon are unremarkable. Peritoneum: No abnormal intraperitoneal fluid. No free air. Ventral Wall: No hernias. Abdominal Nodes: No retroperitoneal or mesenteric adenopathy by size criteria. Vessels: Aorta and inferior vena cava are normal in size. PELVIS: Pelvic Organs: Unremarkable. Bladder: Unremarkable. Pelvic Nodes: No enlarged lymph nodes. Miscellaneous: No hernias are seen. Bones: Unremarkable. IMPRESSION: Prior cholecystectomy. No urinary tract stone or obstruction is found. A normal or abnormal appendix could not be located but there is no secondary CT evidence of appendicitis at the right lower quadrant. Overall, a source of right-sided flank pain is not seen. Dictated by: Pop Duval M.D. on 07/07/2022 at 1:25 Approved by: Pop Duval M.D. on 07/07/2022 at 1:27
[2022-07-07 00:41] LABS: Add Manual Diff / Slide Review NO; Basophils Absolute Auto 100 /uL (0-100); Basophils Percent Auto 0.8 % (0-2); Eosinophils Absolute Auto 300 /uL (0-450); Eosinophils Percent Auto 3.6 % (2-4); Hematocrit 34.8 % (36-46); Hemoglobin 11.6 g/dL (12.0-16.0); Lymphocytes Absolute Auto 3400 /uL (1100-4500); Lymphocytes Percent Auto 39.5 % (25-40); Mean Corpuscular HGB Conc 33.4 % (30-36); Mean Corpuscular Hemoglobin 28.4 PG (26-34); Monocytes Absolute Auto 700 /uL (0-900); Monocytes Percent Auto 7.6 % (3-14); Neutrophils Absolute Auto 4200 /uL (1500-7000); Neutrophils Percent Auto 48.5 % (50-75); Platelet Count 302 X10^3/uL (150-400); Red Blood Cell Count 4.09 X10^6/uL (4.0-5.2); White Blood Cell Count 8.7 X10^3/uL (4.5-11.0)
[2022-07-07 00:55] LABS: Alanine Aminotransferase 17 IU/L (<35); Albumin 3.6 g/dL (3.5-5.0); Albumin Globulin Ratio 1.1 (1.0-2.8); Alkaline Phosphatase 95 U/L (38-126); Aspartate Aminotransferase 21 IU/L (14-36); BUN Creatinine Ratio 24.3 (6-22); Bilirubin Total 0.3 mg/dL (0.2-1.3); Blood Urea Nitrogen 25 mg/dL (7-17); Calcium 9.1 mg/dL (8.4-10.2); Carbon Dioxide 28 mmol/L (22-32); Chloride 103 mmol/L (98-107); Estimated Glomerular Filt Rate 57 mL/min (>60); Globulin 3.2 g/dL (1.7-4.1); Glucose 117 mg/dL (80-110); HEMOLYSIS 19 (0-50); Lipase 69 U/L (23-300); Potassium 3.8 mmol/L (3.4-5.1); Sodium 137 mmol/L (137-145); Total Protein 6.8 g/dL (6.3-8.2)
[2022-07-07] MEDS: CYCLOBENZAPRINE 10 MG PREPACK 1 BOTTLE MISC (02:01)
[2022-07-07 02:04] VITALS: BP 142/78; PULSE 75; RESP 16; O2SAT 99
== END 2022-07-07 02:05 | disposition home or self-care (01) ==
PROVIDERS: Emergency Provider Emergency Medicine; PCP Nurse Practitioner Family
DX: M54.9 Dorsalgia, unspecified (principal); R10.9 Unspecified abdominal pain
CPT/HCPCS: 36415; 74177; 80053; 81003; 83690; 85025; 99283; 99284; Q9967

== ENCOUNTER 2022-08-01 09:42 | Outpatient (CLI) | payer MEDICARE, OTHER, SELFPAY ==
[2022-08-01] VITALS (10 sets, daily range): BP systolic 146–164; BP diastolic 67–100; PULSE 71–82; RESP 14–23; TEMP 36.4; O2SAT 95–100
--- NOTE | 2022-08-01 09:43 | DI.RAD.S_ITS ---
PROCEDURE: PAIN L/S TRANSFORAM INJECT DEVANG COMPARISON: [facility], , PAIN L/S TRANSFORAMINAL INJECT, 01/15/2022, 15:26. INDICATIONS: SPONDYLOSIS FINDINGS: Fluoroscopic spot filming was performed to verify placement of a spinal needle at the L4-L5 level, as labeled on the films. Appropriate location of the needle tip was confirmed by injection of iodinated contrast. IMPRESSION: Intraprocedural examination within normal limits. Dictated by: Rafa Baldwin M.D. on 08/01/2022 at 14:22 Approved by: Rafa Baldwin M.D. on 08/01/2022 at 14:22
[2022-08-01] MEDS: BUPIVACAINE 0.25% (PF) VIAL 5 ML SUBCUT (10:49)
[2022-08-01] MEDS: IOPAMIDOL 15 ML VIAL 3 ML INJ (10:50)
[2022-08-01] MEDS: BETAMETHASONE 30 MG/5 ML MDV 6 MG INJ (10:50)
[2022-08-01] MEDS: DEXAMETHASONE 10 MG/ML VIAL 20 MG INJ (10:50)
[2022-08-01] MEDS: MIDAZOLAM 2 MG/2 ML VIAL 3 MG IV (10:58)
--- NOTE | 2022-08-01 11:10 | PM.PROC.IR.1 ---
Date/Time/Diagnoses Date of procedure: 08/01/22 Time of procedure: 11:10 Pre-procedure diagnosis: 1. FORAMINAL STENOSIS WITH LE SYMPTOMS Procedure Notes Procedure: 1. FLUOROSCOPICALLY GUIDED CONTRAST CONTROLLED TRANSFORAMINAL EPIDURAL STEROID INJECTION - BILATERAL L4/5 TFESI Indications: Hayde is referred by DARYA Barrientos for treatment of Foraminal Stenosis with bilateral LE Symptoms Physician: Collin Parmar Total Fluoroscopy time (seconds): 17 Total sedation minutes: 18 Complications: none Procedure in detail & Post-procedure care: FINDINGS Foraminal Nerve Root Compression secondary to disc disease and facet hypertrophy DESCRIPTION OF PROCEDURE Following review of allergy and review of potential side effects and complications, including, but not necessarily limited to, infection, allergic reaction, local tissue breakdown, stroke, temporary or permanent nerve injury, paralysis, and possible , the patient indicated that the patient understood and agreed to proceed. An informed consent document was signed by the patient, witnessed by a nurse, and placed in the patient's chart. Additionally, other treatment options including medications, modalities, and physical therapy were reviewed with the patient. After review of previous anaesthesic history and IV conscious sedation the patient was deemed safe to proceed with today?s procedure with IV conscious sedation as ASA class II designation. Safety time-out was performed to confirm patient ID, procedure to be performed and site of procedure. IV sedation was accomplished with a combination of 3mg of Versed was administered by the RN after DO order, titrated to patient comfort during the course of the procedure while the patient remained responsive to all verbal commands In the prone position following sterile prep and drape of the lumbar region, the right L4/5 posterior neuroforamen was identified fluoroscopically. The skin was anesthetized via a 25-gauge 1.5-inch needle with 1% lidocaine solution. At this point, a 25-gauge 3.5-inch spinal needle was atraumatically introduced and advanced under fluoroscopic guidance through the posterior right L4/5 neuroforamen to approximately the anterior aspect of the canal. Depth was confirmed on lateral view. Following negative aspiration, injection of approximately 1.5cc of Isovue 200 under live fluoroscopy in the AP view confirmed excellent flow along the nerve root, into the epidural space without vascular or intrathecal uptake observed Radiological data, including multiple fluoroscopic views of the lumbosacral spine, reveal a spinal needle at the right L4/5 posterior neuroforamen. Subsequent views show flow of contrast material flowing superiorly and inferiorly along the nerve root confirming epidural flow. Subsequently, a test dose of 1.5cc of 1% lidocaine solution was administered and patient was observed for two minutes for signs or symptoms of complications, including abdominal pain, shortness of breath, bilateral upper or lower extremity weakness, nausea and vomiting, prior to steroid injection. At this point, a total of 3cc or 20mg of dexamethasone and 6mg betamethasone was injected without incident. Attention was then refocused to the left L4/5 level where the identical procedure was replicated. The procedure tolerated the procedure well without signs or symptoms of complications prior to transfer to the recovery area continued monitoring without incident. The patient was then transferred to the recovery area where they were observed for an appropriate time after the injection. The patient reported a VAS score of 7 prior to the procedure and a post-procedure VAS of 0. POST OP INSTRUCTIONS The patient was provided a Pain Log to continue to record their response to the target-specific procedure prior to follow-up visit with their referring physician. Additionally, specific post-injection care instructions and a contact number to our office were provided if concerns arise regarding possible complications associated with the procedure are suspected.
--- NOTE | 2022-08-01 13:26 | PC.NURSE ---
Patient still with weakness to the LLE. Up with 2PA to bathroom via WC transfer. Mobility improving but still continuing to monitor.
== END 2022-08-01 13:40 | disposition home or self-care (01) ==
LOC: RAD 09:43
PROVIDERS: PCP Nurse Practitioner Family; Referring Provider Physical Medicine & Rehabilitation; Visit Provider Physical Medicine & Rehabilitation
DX: M48.061 Spinal stenosis, lumbar region without neurogenic claudication (principal); M51.16 Intervertebral disc disorders with radiculopathy, lumbar region
CPT/HCPCS: 64483; 99152; J0702; J1100; J2250; J3490

== ENCOUNTER 2022-08-03 19:40 | Emergency (ER) | payer MEDICARE, OTHER, SELFPAY ==
[2022-08-03] VITALS (15 sets, daily range): BP systolic 137–190; BP diastolic 63–88; PULSE 66–77; RESP 18–30; TEMP 36.3; O2SAT 93–99; BMI 37.3
--- NOTE | 2022-08-03 20:07 | ED.DIZZY ---
HPI - Dizziness General Chief Complaint: Dizziness Stated Complaint: Hypertension 200/90, Vertigo, Throwing Up Time Seen by Provider: 08/03/22 19:55 Source: patient and family Mode of arrival: Wheelchair History of Present Illness HPI Narrative: 71-year-old female nonsmoker with history of chronic back pain, hypertension, asthma particularly in the aftermath of COVID presents with and daughter and a chief complaint of a gradually worsening frontal headache associated with nausea and vomiting, dizziness and elevated blood pressure over the past few days. She states she had an injection of a steroid in her back on which is nothing new for her, she is never had any abnormal reactions before, perhaps maybe a bit of facial flushing but no significant issues. Since then she is had increasing symptoms as noted above. Her headache may get worse with bright lights and loud noise but she denies other obvious provocation or palliation. It is largely behind her eyes and has not improved with Tylenol. She denies recent trauma or head injury. She has no fever or chills and denies the use of blood thinners. She has no neck pain or neurologic symptoms such as extremity numbness, tingling or weakness. She denies any recent change in her medications or dosing regimen and states that her blood pressure the last time she checked it was in the 140s but has been over 200 today. She denies any chest pain or shortness of breath. She is had no cough. As stated she is had some vomiting, this does not seem to affect her headache or dizziness whatsoever. She states that she is dizzy, particularly with change in position or standing. She denies any urinary complaints such as dysuria, frequency or urgency Related Data Home Medications Medication Instructions Recorded Confirmed magnesium 30 mg tablet 30 mg PO DAILY 04/24/18 01/09/22 omega-3 fatty acids 1,000 mg 1,000 mg PO DAILY 04/24/18 01/09/22 capsule (Fish Oil Concentrate) cholecalciferol (vitamin D3) 25 1,000 unit PO DAILY 06/11/18 01/09/22 mcg (1,000 unit) capsule triamterene 37.5 1 tab PO DAILY 12/01/18 01/09/22 mg-hydrochlorothiazide 25 mg tablet potassium chloride 10 mEq 10 meq PO DAILY 09/30/19 01/09/22 tablet,extended release (Klor-Con) acetaminophen 500 mg tablet 500 mg PO QID PRN 12/08/20 01/09/22 (Tylenol Extra Strength) ibuprofen 200 mg tablet 200 mg PO Q6H PRN 01/09/22 01/09/22 lactobacillus combination no.9 4 4,000 mmu cells PO DAILY 01/09/22 01/09/22 billion cell capsule (Adult 50 Plus Probiotic) fluticasone propionate 230 2 puff inhalation ONCE 07/24/22 mcg-salmeterol 21 mcg/actuation HFA inhaler (Advair HFA) metoprolol succinate 25 mg 25 mg PO DAILY 07/24/22 tablet,extended release 24 hr pantoprazole 40 mg tablet,delayed 40 mg PO BEDTIME 07/24/22 release vitamin B complex (B 1 tab PO DAILY 07/24/22 Complex-Vitamin B12 tablet) Previous Rx's Medication Instructions Recorded albuterol sulfate 90 mcg/actuation 2 puff inhalation Q4-6H PRN 05/08/22 aerosol inhaler shortness of breath or wheezing #8.5 grams meclizine 25 mg tablet 25 mg PO BID-TID PRN dizziness #14 08/03/22 tabs ondansetron 4 mg disintegrating 4 mg PO TID-QID PRN nausea and 08/03/22 tablet vomiting #10 tabs pantoprazole 40 mg tablet,delayed 40 mg PO DAILY #30 tabs 08/03/22 release (Protonix) Allergies Allergy/AdvReac Type Severity Reaction Status Date / Time chocolate flavor Allergy Intermediate INCREASED Verified 07/24/22 14:03 [CHOCOLATE FLAVOR] HR, HEADACHE Penicillins [PENICILLINS] Allergy Intermediate HIVES Verified 07/24/22 14:03 oxycodone [OXYCODONE] AdvReac Intermediate N/V, Verified 07/24/22 14:03 HEADACHE Review of Systems Review of Systems Narrative: GENERAL: See HPI HEENT: Denies sinus pain, ear pain, sore throat, difficulty swallowing, dizziness. RESPIRATORY: Denies dyspnea, cough, wheezing, hemoptysis, sputum. CARDIOVASCULAR: See HPI GASTROINTESTINAL: See HPI : Denies dysuria, frequency, incontinence, hematuria, urinary retention. MUSCULOSKELETAL: denies weakness, joint pain, or bony pain SKIN: Denies rash, skin lesions, or other NEUROLOGIC: See HPI PSYCHIATRIC: No concerning psychosocial issues. 12 point review of systems is negative except for those stated above Patient History Medical History Asthma Bicipital tendinitis of left shoulder DJD of left shoulder Facet arthropathy, lumbar Hypertension Right knee DJD Surgical History History of back surgery History of cholecystectomy Family History Father Lung cancer Emphysema (subcutaneous) (surgical) resulting from a procedure Mother Congestive heart failure Social History marital status: Smoking Status: Never smoker alcohol intake: current substance use type: does not use Smoking Status: Never smoker Substance Use Type: does not use Exam Narrative Exam Narrative: GENERAL: [71] year old patient appears stated age. Well-developed patient, in mild distress. Obviously uncomfortable, holding an emesis bag, rubbing her HEAD: Atraumatic. Normocephalic. EYES: Pupils equal round and reactive. Extraocular motions intact. No scleral icterus. No injection or drainage. ENT: Nose without bleeding, purulent drainage. Throat without erythema, tonsillar hypertrophy or exudate. Airway patent. NECK: Trachea midline. Non tender CARDIOVASCULAR: Regular rate and rhythm without murmurs, gallops, or rubs. RESPIRATORY: Clear to auscultation. Breath sounds equal bilaterally. No wheezes, rales, or rhonchi. GASTROINTESTINAL: Abdomen soft, non-tender, nondistended. EXTREMITIES: No edema or joint tenderness. BACK: Nontender without deformity or crepitance. No flank tenderness. NEURO: AOx3. SKIN: No rash or erythema of visible areas NIH Stroke Scale 1a. LOC: Patient is alert and keenly responsive (0) 1b. LOC Questions: Patient answers both LOC questions accurately (0) 1c. LOC Commands: Patient performs both tasks correctly (0) 2. Best Gaze: Normal (0) 3. Visual: No visual loss (0) 4. Facial palsy: Normal symmetrical movements (0) 5. Motor arm: No drift (0) 6. Motor leg: No drift (0) 7. Limb ataxia: Absent (0) 8. Sensory: Normal (0) 9. Best language: No aphasia; normal (0) 10. Dysarthria: Normal (0) 11. Extinction and inattention: No abnormality (0) NIHSS: 0 Initial Vital Signs Initial Vital Signs: Vital Signs Temperature 97.3 F L 08/03/22 19:42 Pulse Rate 74 08/03/22 19:42 Respiratory Rate 18 08/03/22 19:42 Blood Pressure 186/88 H 08/03/22 19:42 Pulse Oximetry 99 08/03/22 19:42 Oxygen Delivery Method 08/03/22 19:42 Course Course Course Narrative: Initially nystagmus is not noted but on secondary exam she is noted to have vertiginous symptoms that completely resolve when sitting still and worsened when either sitting up or turning her head. Of note she has nystagmus most significantly when turning her head to the left. This certainly raises the suspicion of a peripheral vertigo and at this point benzodiazepines, antiemetics and meclizine are ordered. Orders Ordered: ED Orders 08/03/22 20:05 Complete Blood Count AUTO DIFF Stat Comprehensive Metabolic Panel Stat NT-proBNP (BNP-Adult 18+) Stat Troponin & CK Cardiac Panel Stat 08/03/22 20:08 CT head/brain wo con Stat EKG-12 Lead Stat 08/03/22 20:25 Urinalysis and Microscopic Stat Discontinued Medications Diazepam (Diazepam 10 Mg/2 Ml Syringe) 2 mg IV NOW ONE Stop: 08/03/22 21:09 Last Admin: 08/03/22 21:31 Dose: 2 mg Documented By: NISSA Sodium Chloride (Normal Saline 0.9%) 500 mls @ 1,000 mls/hr IV BOLUS ONE Stop: 08/03/22 20:36 Last Infusion: 08/03/22 21:00 Dose: 0 mls/hr Documented By: Admin: 08/03/22 20:30 Dose: 1,000 mls/hr Documented By: NISSA Ketorolac Tromethamine (Ketorolac 30 Mg/Ml Vial) 15 mg IV NOW ONE Stop: 08/03/22 23:50 Last Admin: 08/04/22 00:11 Dose: 15 mg Documented By: NISSA Meclizine HCl (Meclizine Hcl 12.5 Mg Tablet) 50 mg PO NOW ONE Stop: 08/03/22 21:10 Last Admin: 08/04/22 00:11 Dose: 50 mg Documented By: NISSA Ondansetron HCl (Ondansetron 4 Mg/2 Ml Inj) 4 mg IV NOW ONE Stop: 08/03/22 21:09 Last Admin: 08/03/22 21:31 Dose: 4 mg Documented By: NISSA Ondansetron HCl (Ondansetron 4 Mg Odt Prepack) 1 bottle MISC SEEINSTR ONE Stop: 08/03/22 23:37 Last Admin: 08/04/22 00:11 Dose: 1 bottle Documented By: NISSA Pantoprazole Sodium (Pantoprazole 40 Mg Vial) 40 mg IV NOW ONE Stop: 08/03/22 20:08 Last Admin: 08/03/22 20:30 Dose: 40 mg Documented By: NISSA Vital Signs Vital signs: Vital Signs - 8 hr 08/03/22 20:02 08/03/22 20:09 08/03/22 20:09 Pulse Rate 77 69 Respiratory Rate 24 24 Blood Pressure 187/87 H Pulse Oximetry 98 97 08/03/22 20:30 08/03/22 20:31 08/03/22 20:31 Pulse Rate 69 67 Respiratory Rate 23 28 H Blood Pressure 190/82 H Pulse Oximetry 98 98 08/03/22 21:00 08/03/22 21:01 08/03/22 21:01 Pulse Rate 73 75 Respiratory Rate 30 H 25 H Blood Pressure 176/82 H Pulse Oximetry 97 97 08/03/22 21:30 08/03/22 21:31 08/03/22 21:31 Pulse Rate 70 68 Respiratory Rate 29 H 26 H Blood Pressure 166/72 H Pulse Oximetry 97 96 08/03/22 22:00 08/03/22 22:01 08/03/22 22:01 Pulse Rate 66 67 Respiratory Rate 22 24 Blood Pressure 137/63 Pulse Oximetry 95 94 08/03/22 22:30 08/03/22 22:30 08/03/22 23:00 Pulse Rate 68 67 Respiratory Rate 27 H 21 Blood Pressure 157/70 H Pulse Oximetry 95 94 08/03/22 23:01 08/03/22 23:01 08/03/22 23:30 Pulse Rate 67 Respiratory Rate 20 Blood Pressure 147/69 H 145/67 H Pulse Oximetry 93 08/03/22 23:30 08/04/22 00:00 08/04/22 00:01 Pulse Rate 68 64 64 Respiratory Rate 23 24 23 Blood Pressure Pulse Oximetry 93 97 96 08/04/22 00:01 08/04/22 00:30 08/04/22 00:30 Pulse Rate 64 Respiratory Rate 11 L Blood Pressure 147/66 H 144/63 H Pulse Oximetry 94 MDM - Dizziness Lab Data Result diagrams: 08/03/22 20:05 08/03/22 20:05 Labs: Lab Results 08/03/22 08/03/22 08/03/22 Range/Units 20:05 20:05 20:25 WBC 18.1 H (4.5-11.0) X10^3/uL RBC 4.51 (4.0-5.2) X10^6/uL Hgb 13.1 (12.0-16.0) g/dL Hct 38.0 (36-46) % MCV 84.2 (80-100) fL MCH 28.9 (26-34) PG MCHC 34.4 (30-36) % RDW 13.0 (11.6-14.8) % Plt Count 341 (150-400) X10^3/uL Neut % (Auto) 77.9 H (50-75) % Lymph % (Auto) 16.7 L (25-40) % Bond % (Auto) 4.7 (3-14) % Eos % (Auto) 0.1 L (2-4) % Baso % (Auto) 0.6 (0-2) % Neut # (Auto) 90727 H (0617-4944) /uL Lymph # (Auto) 3000 (4240-1430) /uL Bond # (Auto) 800 (0-900) /uL Eos # (Auto) 0 (0-450) /uL Baso # (Auto) 100 (0-100) /uL Sodium 138 (137-145) mmol/L Potassium 4.2 (3.4-5.1) mmol/L Chloride 100 (98-107) mmol/L Carbon Dioxide 27 (22-32) mmol/L BUN 28 H (7-17) mg/dL Creatinine 0.84 (0.52-1.04) mg/dL Estimated GFR > 60 (>60) mL/min BUN/Creatinine Ratio 33.3 H (6-22) Glucose 122 H (80-110) mg/dL Calcium 9.6 (8.4-10.2) mg/dL Total Bilirubin 0.3 (0.2-1.3) mg/dL AST 19 (14-36) IU/L ALT 17 (<35) IU/L Alkaline Phosphatase 108 (38-126) U/L Total Creatine Kinase 39 (30-135) U/L CK-MB (CK-2) TNP CK-MB (CK-2) Rel Index TNP Troponin I < 0.012 (0.01-0.034) ng/mL NT-Pro-B Natriuret Pep 781 H (<125) pg/mL Total Protein 7.8 (6.3-8.2) g/dL Albumin 4.2 (3.5-5.0) g/dL Globulin 3.6 (1.7-4.1) g/dL Albumin/Globulin Ratio 1.2 (1.0-2.8) Urine Color Yellow Urine Appearance Clear Urine pH 7.5 (4.5-8.0) Ur Specific Conrad 1.015 (1.000-1.035) Urine Protein Negative (Negative) Urine Glucose (UA) Negative (Negative) g/dL Urine Ketones Negative (NEGATIVE) Urine Occult Blood Negative (Negative) Urine Nitrate Negative (Negative) Urine Bilirubin Negative (NEGATIVE) Urine Urobilinogen 0.2 (0.2) E.U./dL Ur Leukocyte Esterase Negative (NEGATIVE) Urine RBC None seen (0-5/HPF) Urine WBC None seen (0-5/HPF) Urine Bacteria None seen (None) Ur Culture Indicated? Cult not indicated Imaging Data CT scan - head: Radiologist's Impression: Close Head CT (Signed) Pop Duval - 08/03/22 Launch?[address] [address] [address] Scan Report Signed Patient: Hayde Mensah MR#: [id number] : 1950 Acct:[id number] Age/Sex: 71 / F Date of Service: 08/03/22 Loc: ED Accession Number: [id number] ?? Procedure: CT head/brain wo con Ordering Provider: Darrius Woods D.O. PROCEDURE:? CT HEAD/BRAIN WO CON ? INDICATIONS:? severe EDMONDSON, HTN, vomiting ? TECHNIQUE:? Noncontrast 4.5 mm thick angled axial sections acquired from the foramen magnum to the vertex, with coronal and sagittal reformats.? For radiation dose reduction, the following was used:? automated exposure control, adjustment of mA and/or kV according to patient size.? ? COMPARISON:? [facility], CT, HEAD WITHOUT CONTRAST, 10/19/2017, 10:07. ? FINDINGS:? Image quality:? Excellent.? ? CSF spaces:? Basal cisterns are patent.? No extra-axial fluid collections.? Ventricles are normal in size and shape.? ? Brain:? No midline shift.? No intracranial masses or hemorrhage.? Cervantes-white matter interface is normal.? ? Skull and face:? Calvarium and visualized facial bones are intact, without suspicious lesions.? ? Sinuses:? Visualized sinuses and mastoids are clear.? ? IMPRESSION:? No acute disease, no sign of intracranial hemorrhage.? Source of headache is not seen. ? ? Dictated by: Pop Duval M.D. on 08/03/2022 at 20:52 ? ? Approved by: Pop Duval M.D. on 08/03/2022 at 20:53 ? MDM Narrative Medical decision making narrative: 71-year-old female nonsmoker with history of chronic back pain, hypertension, asthma particularly in the aftermath of COVID presents with and daughter and a chief complaint of a gradually worsening frontal headache associated with nausea and vomiting, dizziness and elevated blood pressure Multiple etiologies for patient's symptoms considered including: [Intracranial hemorrhage, hypertensive emergency, peripheral vertigo such as BPPV, atypical migraine CT scan of brain obtained and no evidence of mass or intracranial hemorrhage Labs are largely unremarkable, elevated white blood cell count noted and thought most likely due to a stress response from vomiting. Infectious cause considered but patient has no fever nor elevated heart rate. Above-stated therapies have proven significantly useful, patient no longer nauseated, tolerating orals, dizziness is greatly improved and headache is gone.] Patient's symptoms improved over duration of stay with above-stated therapies. Findings and discharge diagnosis discussed with patient/family followed by verbalization of understanding Return precautions discussed with patient/family whom verbalize understanding. Discharge Plan Departure Patient Disposition: Home Clinical Impression: Headache, Vertigo, HTN (hypertension) Activity Restrictions/Additional Instructions: *You have been diagnosed with [dizziness likely due to vertigo and high blood pressure that improved after symptoms had been treated. As we discussed your history and physical exam as well as labs and CT scan are very reassuring and there is no evidence of stroke, bleeding in your brain, electrolyte abnormality or other specific diagnosis that requires an immediate intervention.] *What to do: *Please continue to take your regular medications as directed. [ x] New medication prescriptions sent to your pharmacy: [[facility] ] [ ] New medication written as a paper prescription [ ] No new medications given *Please follow up with your primary care provider in 2-3 days, call for an appointment. Let them know you were seen in the Emergency Department and that we ask that you be seen in follow up. We will electronically transmit a record of today's note if your PCP is in our system *If you do not have a primary care provider please contact the [facility] Resource line at [phone]. They will ask some questions about your medical history and help get you set up with a doctor in the community. *Return to Emergency Department if you should have any new, worsening or concerning symptoms, such as [fever greater than 101 F, shaking chills, worsening pain, persistent vomiting or other bothersome symptoms] Prescriptions: New ondansetron 4 mg tablet,disintegrating 4 mg PO TID-QID PRN (Reason: nausea and vomiting) Qty: 10 0RF meclizine 25 mg tablet 25 mg PO BID-TID PRN (Reason: dizziness) Qty: 14 0RF pantoprazole [Protonix] 40 mg tablet,delayed release (DR/EC) 40 mg PO DAILY Qty: 30 0RF No Action albuterol sulfate 90 mcg/actuation HFA aerosol inhaler 2 puff INHALATION Q4-6H PRN (Reason: shortness of breath or wheezing) Qty: 8.5 0RF triamterene-hydrochlorothiazid 37.5-25 mg tablet 1 tab PO DAILY potassium chloride [Klor-Con 10] 10 mEq tablet extended release 10 meq PO DAILY magnesium 30 mg tablet 30 mg PO DAILY omega-3 fatty acids [Fish Oil Concentrate] 1,000 mg capsule 1,000 mg PO DAILY cholecalciferol (vitamin D3) 1,000 unit capsule 1,000 unit PO DAILY acetaminophen [Tylenol Extra Strength] 500 mg tablet 500 mg PO QID PRN ibuprofen 200 mg tablet 200 mg PO Q6H PRN Adult 50 Plus Probiotic 4 billion cell capsule 4,000 mmu cells PO DAILY Rx Instructions: administer with a meal pantoprazole 40 mg tablet,delayed release (DR/EC) 40 mg PO BEDTIME Advair HFA 230-21 mcg/actuation HFA aerosol inhaler 2 puff inhalation ONCE Label Comments: inhale 1 puff by mouth and INTO THE LUNGS twice a day vitamin B complex [B Complex-Vitamin B12] Tablet 1 tab PO DAILY metoprolol succinate 25 mg tablet extended release 24 hr 25 mg PO DAILY Referrals: Rhina Barrientos ARNP [Primary Care Provider] - Visit Report Forms: Patient Portal/API
--- NOTE | 2022-08-03 20:08 | DI.CT.S_ITS ---
PROCEDURE: CT HEAD/BRAIN WO CON INDICATIONS: severe EDMONDSON, HTN, vomiting TECHNIQUE: Noncontrast 4.5 mm thick angled axial sections acquired from the foramen magnum to the vertex, with coronal and sagittal reformats. For radiation dose reduction, the following was used: automated exposure control, adjustment of mA and/or kV according to patient size. COMPARISON: [facility], CT, HEAD WITHOUT CONTRAST, 10/19/2017, 10:07. FINDINGS: Image quality: Excellent. CSF spaces: Basal cisterns are patent. No extra-axial fluid collections. Ventricles are normal in size and shape. Brain: No midline shift. No intracranial masses or hemorrhage. Cervantes-white matter interface is normal. Skull and face: Calvarium and visualized facial bones are intact, without suspicious lesions. Sinuses: Visualized sinuses and mastoids are clear. IMPRESSION: No acute disease, no sign of intracranial hemorrhage. Source of headache is not seen. Dictated by: Pop Duval M.D. on 08/03/2022 at 20:52 Approved by: Pop Duval M.D. on 08/03/2022 at 20:53
[2022-08-03 20:13] LABS: Add Manual Diff / Slide Review NO; Basophils Absolute Auto 100 /uL (0-100); Basophils Percent Auto 0.6 % (0-2); Eosinophils Absolute Auto 0 /uL (0-450); Eosinophils Percent Auto 0.1 % (2-4); Hemoglobin 13.1 g/dL (12.0-16.0); Lymphocytes Absolute Auto 3000 /uL (1100-4500); Lymphocytes Percent Auto 16.7 % (25-40); Mean Corpuscular HGB Conc 34.4 % (30-36); Mean Corpuscular Hemoglobin 28.9 PG (26-34); Mean Corpuscular Volume 84.2 fL (80-100); Monocytes Absolute Auto 800 /uL (0-900); Monocytes Percent Auto 4.7 % (3-14); Neutrophils Absolute Auto 14100 /uL (1500-7000); Neutrophils Percent Auto 77.9 % (50-75); Platelet Count 341 X10^3/uL (150-400); Red Blood Cell Count 4.51 X10^6/uL (4.0-5.2); White Blood Cell Count 18.1 X10^3/uL (4.5-11.0)
--- NOTE | 2022-08-03 20:21 | PC.NURSE ---
To radiology via stretcher with tech
[2022-08-03 20:23] LABS: Alanine Aminotransferase 17 IU/L (<35); Albumin 4.2 g/dL (3.5-5.0); Albumin Globulin Ratio 1.2 (1.0-2.8); Alkaline Phosphatase 108 U/L (38-126); Aspartate Aminotransferase 19 IU/L (14-36); BUN Creatinine Ratio 33.3 (6-22); Bilirubin Total 0.3 mg/dL (0.2-1.3); Blood Urea Nitrogen 28 mg/dL (7-17); Calcium 9.6 mg/dL (8.4-10.2); Carbon Dioxide 27 mmol/L (22-32); Chloride 100 mmol/L (98-107); Creatine Kinase 39 U/L (30-135); Estimated Glomerular Filt Rate > 60 mL/min (>60); Globulin 3.6 g/dL (1.7-4.1); Glucose 122 mg/dL (80-110); HEMOLYSIS 21 (0-50); Potassium 4.2 mmol/L (3.4-5.1); Sodium 138 mmol/L (137-145); Total Protein 7.8 g/dL (6.3-8.2)
--- NOTE | 2022-08-03 20:29 | PC.NURSE ---
Returns to the room from radiology via stretcher with tech - family at bedside
[2022-08-03] MEDS: PANTOPRAZOLE 40 MG VIAL IV (20:30)
[2022-08-03] MEDS: SODIUM CHLORIDE 0.9% 500 ML 1000 ML IV (20:30)
[2022-08-03 20:35] LABS: NT-proBNP (BNP-Adult 18+) 781 pg/mL (<125); Troponin I < 0.012 ng/mL (0.01-0.034)
[2022-08-03 20:39] LABS: Appearance Urine UA CLEAR; Bilirubin Urine UA NEGATIVE (NEGATIVE); Color Urine UA YELLOW; Glucose Urine UA NEGATIVE (Negative); Ketones Urine UA NEGATIVE (NEGATIVE); Leukocyte Esterase Urine UA NEGATIVE (NEGATIVE); Nitrite Urine UA NEGATIVE (Negative); Occult Blood Urine UA NEGATIVE (Negative); Protein Urine UA NEGATIVE (Negative); Specific Gravity Urine UA 1.015 (1.000-1.035); Urobilinogen Urine UA 0.2 E.U./dL (0.2); pH Urine UA 7.5 (4.5-8.0)
[2022-08-03 20:45] LABS: Bacteria Urine None Seen; Culture Indicated Urine Cult Not Indicated; RBC Urine None Seen (0-5/HPF); WBC Urine None Seen (0-5/HPF)
--- NOTE | 2022-08-03 21:00 | PC.NURSE ---
Resting quietly in NAD - relates some nausea without vomiting - lying still on back - warm blankets provided for comfort - family at bedside
--- NOTE | 2022-08-03 21:30 | PC.NURSE ---
In to medication patient at this time - tolerated well
[2022-08-03] MEDS: diazePAM 10 MG/2 ML SYRINGE 2 MG IV (21:31)
[2022-08-03] MEDS: ONDANSETRON 4 MG/2 ML INJ IV (21:31)
--- NOTE | 2022-08-03 22:15 | PC.NURSE ---
Resting quietly in NAD - no needs voiced - PWD with respirations equal and unlabored bilaterally
--- NOTE | 2022-08-03 22:30 | PC.NURSE ---
Still unable to take the meclizine - states that she is feeling nauseas - requesting to lay on her left side - assisted to reposition and left to rest - family at bedside - VS improving
--- NOTE | 2022-08-03 23:15 | PC.NURSE ---
Resting quietly - c/o still feeling nausea - also states that she has a headache - VSS - alert and oriented - PWD
[2022-08-04] VITALS: PULSE 64; RESP 24; O2SAT 97
--- NOTE | 2022-08-04 | PC.NURSE ---
MD at bedside - family present
[2022-08-04 00:01] VITALS: BP 147/66; PULSE 64; RESP 23; O2SAT 96
[2022-08-04] MEDS: ONDANSETRON 4 MG ODT PREPACK 1 BOTTLE MISC (00:11)
[2022-08-04] MEDS: KETOROLAC 30 MG/ML VIAL 15 MG IV (00:11)
[2022-08-04] MEDS: MECLIZINE HCL 12.5 MG TABLET 50 MG PO (00:11)
[2022-08-04 00:30] VITALS: BP 144/63; PULSE 64; RESP 11; O2SAT 94
--- NOTE | 2022-08-04 00:30 | PC.NURSE ---
States that she is feeling better at this time and would like to go home - family at bedside
== END 2022-08-04 00:59 | disposition home or self-care (01) ==
PROVIDERS: Emergency Provider Emergency Medicine; PCP Nurse Practitioner Family
DX: I10 Essential (primary) hypertension (principal); R51.9 Headache, unspecified; R42 Dizziness and giddiness; R11.2 Nausea with vomiting, unspecified; Z79.899 Other long term (current) drug therapy
CPT/HCPCS: 36415; 70450; 80053; 81001; 82550; 83880; 84484; 85025; 93005; 96374; 96375; 99284; C9113; J1885; J2405; J3360

== ENCOUNTER → 2022-09-10 10:10 | Outpatient (CLI) | payer MEDICARE, OTHER, SELFPAY ==
[2022-09-10 11:09] LABS: COVID19 -Nasal RAPID Negative (Negative)
--- NOTE | 2022-09-10 18:48 | DI.NM.S_ITS ---
DATE OF SERVICE: 09/10/2022 PROCEDURE: Pharmacological perfusion study. INDICATION: Shortness of breath with underlying hypertension, hyperlipidemia. RADIOPHARMACEUTICAL: 26.2 millicurie technetium-99m Myoview IV was injected at stress and 12.5 millicurie technetium-99m Myoview IV was injected at rest. CARDIAC STRESS: The patient underwent IV Lexiscan perfusion study under the supervision of an attending staff using standard intravenous Lexiscan, as per protocol. She remained hemodynamically stable. Resting blood pressure 132/84. Baseline rhythm was sinus with diffuse nonspecific ST-T changes, including T- wave inversion. During Lexiscan, the patient remained having similar changes. No significant arrhythmias. The patient felt shortness of breath and heaviness in both arms. RAW DATA: Breast shadow was seen. GATED STUDY: Stress LV ejection fraction 73 percent without any obvious wall motion abnormalities. Resting end-diastolic volume 89 mL. TID ratio 1.23. However, it is a pharmacological perfusion stress test. Lung/heart ratio 0.49, which is abnormal. MYOCARDIAL PERFUSION SCAN: Stress supine and, resting supine and stress prone images revealed normal myocardial perfusion. CONCLUSION: This is a normal myocardial perfusion study. Preserved left ventricular function, however lung/heart ratio 0.49. Consider 2D echo to rule out any significant diastolic dysfunction or valvular pathology. Hayde Mensah - Leila/morales doc#: [id number]/job#: [id number] dd: 09/10/2022 18:03:00 dt: 09/10/2022 18:39:00 DICTATING /COPIES TO: Dana Irby MD COPIES MNE: CANDI;
== END ==
PROVIDERS: PCP Nurse Practitioner Family; Referring Provider Internal Medicine Cardiovascular Disease; Visit Provider Internal Medicine Cardiovascular Disease
DX: R06.02 Shortness of breath (principal); I10 Essential (primary) hypertension; E78.5 Hyperlipidemia, unspecified; Z20.822 Contact with and (suspected) exposure to COVID-19
CPT/HCPCS: 78452; 87635; 93017; A9502; J2785

== ENCOUNTER 2022-12-03 08:05 | Outpatient (CLI) | payer MEDICARE, OTHER, SELFPAY ==
[2022-12-03] VITALS (7 sets, daily range): BP systolic 135–193; BP diastolic 63–84; PULSE 67–77; RESP 16–20; TEMP 36.5; O2SAT 96–100
--- NOTE | 2022-12-03 08:08 | DI.RAD.S_ITS ---
PROCEDURE: PAIN L INTERLAMINAR/CAUDAL INJ INDICATIONS: SPONDYLOSIS COMPARISON: [facility], XA, PAIN L INTERLAMINAR/CAUDAL INJ, 07/27/2019, 11:27. FINDINGS: Fluoroscopic spot filming was performed to verify placement of a spinal needle at the L4-L5 level, as labeled on the films. Appropriate location of the needle tip was confirmed by injection of iodinated contrast. IMPRESSION: Intraprocedural examination within normal limits. Dictated by: Rafa Baldwin M.D. on 12/03/2022 at 11:20 Approved by: Rafa Baldwin M.D. on 12/03/2022 at 11:20
[2022-12-03] MEDS: MIDAZOLAM 2 MG/2 ML VIAL IV (09:49)
[2022-12-03] MEDS: DEXAMETHASONE 10 MG/ML VIAL 20 MG INJ (09:53)
[2022-12-03] MEDS: BETAMETHASONE 30 MG/5 ML MDV 6 MG INJ (09:53)
[2022-12-03] MEDS: BUPIVACAINE 0.25% (PF) VIAL 2 ML INJ (09:54)
[2022-12-03] MEDS: IOPAMIDOL 15 ML VIAL 3 ML INJ (09:55)
--- NOTE | 2022-12-03 10:07 | P.PCN_ITS ---
Date/Time/Diagnoses Date of procedure: 12/03/22 Time of procedure: 10:07 Pre-procedure diagnosis: 1. HNP WITH RADICULAR FEATURES, 2. MULTILEVEL CENTRAL STENOSIS, Post-procedure diagnosis: same Procedure Notes Procedure: 1. FLUOROSCOPICALLY GUIDED CONTRAST CONTROLLED INTERLAMINAR EPIDURAL STEROID INJECTION -L4/5 Indications: The patient is referred by DARYA Barrientos for treatment of Bilateral Foraminal Stenosis R>L LE symptoms. Physician: Collin Parmar Total Fluoroscopy time (seconds): 3 Total sedation minutes: 10 Complications: none Procedure in detail & Post-procedure care: FINDINGS Multilevel Central Spinal Stenosis with Nerve Root Compression DESCRIPTION OF PROCEDURE Fluoroscopically guided, contrast-controlled L4/5 translaminar epidural steroid injection. Following review of allergy and review of potential side effects and complications, including, but not necessarily limited to, infection, allergic reaction, local tissue breakdown, temporary as well as permanent nerve injury, paralysis, stroke and possible , the patient indicated that the patient understood and agreed to proceed. An informed consent document was signed by the patient, witnessed by a nurse, and placed in the patient's chart. Additionally, other treatment options including modalities, medications, and physical therapy were reviewed with the patient. After review of previous anaesthesic history and IV conscious sedation the patient was deemed safe to proceed with today?s procedure with IV conscious sedation as ASA class II designation. Safety time-out was performed to confirm patient ID, procedure to be performed and site of procedure. IV sedation was accomplished with a combination of 2mg of Versed was administered by the RN after DO order, titrated to patient comfort during the course of the procedure while the patient remained responsive to all verbal commands In the prone position, following sterile prep and drape of the lumbar region, the L4/5 translaminar space was identified fluoroscopically. The skin was anesthetized via a 25-gauge, 1.5inch needle with 1% lidocaine solution. At this point, a 22-gauge short bevel spinal needle was atraumatically introduced and advanced under fluoroscopic guidance into the region of the L4/5 translaminar space. Depth was confirmed on lateral view. Radiological data, including multiple fluoroscopic views of the lumbar spine, reveal a spinal needle at the L4/5 translaminar space. Lateral views then show placement of the needle in the epidural space. Subsequent views show contrast material flowing superiorly and inferiorly in the epidural space. No vascular or intrathecal uptake is observed. At this point, using loss of resistance technique with saline and air, the epidural space was entered. This was confirmed following negative aspiration with injection of approximately 1.5cc of Isovue 200, showing excellent epidural flow without vascular or intrathecal uptake. At this point, 1cc of 1% lidocaine solution combined with 3cc or 20mg of dexamethasone and 6mg betamethasone was injected without incident. The patient tolerated the procedure well without signs or symptoms of complications prior to transfer to the recovery area continued monitoring without incident. The patient was then transferred to the recovery area where they were observed for an appropriate period of time after the injection. The patient reported a VAS score of 6 prior to the procedure and a post- procedure VAS of 0. POST OP INSTRUCTIONS The patient was provided a Pain Log to continue to record their response to the target-specific procedure prior to follow-up visit with their referring physician. Additionally, specific post-injection care instructions and a contact number to our office were provided if concerns arise regarding possible complications associated with the procedure are suspected.
== END 2022-12-03 10:26 | disposition home or self-care (01) ==
LOC: RAD 08:07
PROVIDERS: PCP Nurse Practitioner Family; Referring Provider Physical Medicine & Rehabilitation; Visit Provider Physical Medicine & Rehabilitation
DX: M48.062 Spinal stenosis, lumbar region with neurogenic claudication (principal); M51.16 Intervertebral disc disorders with radiculopathy, lumbar region
CPT/HCPCS: 62323; 99152; J0702; J1100; J2250; J3490

== ENCOUNTER → 2022-12-21 08:33 | Outpatient (CLI) | payer MEDICARE, OTHER, SELFPAY ==
[2022-12-21 10:13] LABS: Alanine Aminotransferase 17 IU/L (<35); Albumin 4.1 g/dL (3.5-5.0); Albumin Globulin Ratio 1.4 (1.0-2.8); Alkaline Phosphatase 90 U/L (38-126); Aspartate Aminotransferase 19 IU/L (14-36); Bilirubin Total 0.4 mg/dL (0.2-1.3); Bilirubin Unconjugated 0.1 mg/dL (0.0-1.1); Cholesterol 224 mg/dL (140-199); Globulin 2.9 g/dL (1.7-4.1); HDL Cholesterol 41 mg/dL (40-60); HEMOLYSIS < 15 (0-50); LDL Cholesterol Calculated 156 mg/dL (<100); Triglycerides 135 mg/dL (35-150)
[2022-12-21 10:28] LABS: Free T4, Direct Thyroxine 1.26 ng/dL (0.78-2.19)
[2022-12-21 10:42] LABS: Thyroid Stimulating Hormone 1.28 uIU/mL (0.47-4.68)
== END ==
PROVIDERS: PCP Nurse Practitioner Family; Referring Provider Internal Medicine Cardiovascular Disease; Visit Provider Internal Medicine Cardiovascular Disease
DX: E78.5 Hyperlipidemia, unspecified (principal); Z13.29 Encounter for screening for other suspected endocrine disorder
CPT/HCPCS: 36415; 80061; 80076; 84439; 84443

== ENCOUNTER → 2023-02-18 12:39 | Outpatient (CLI) | payer MEDICARE, OTHER, SELFPAY ==
--- NOTE | 2023-02-18 12:42 | DI.RAD.S_ITS ---
PROCEDURE: XR SACRUM COCCYX MIN 2V INDICATIONS: Coccydynia status post fall TECHNIQUE: 3 views of the sacrum and coccyx acquired. COMPARISON: None. FINDINGS: Bones: No fractures or dislocations. No suspicious bony lesions. Soft tissues: Visualized bowel gas pattern is normal. No suspicious soft tissue densities. IMPRESSION: No fracture. No acute osseous lesion. If symptoms and/or clinical suspicion for pathology persists, further assessment with repeat radiographs (7-10 days) or advanced imaging (e.g. CT, MRI or bone scan) should be considered. Dictated by: Teresa Aldrich MD, PhD on 02/18/2023 at 13:49 Approved by: Teresa Aldrich MD, PhD on 02/18/2023 at 13:49
== END ==
PROVIDERS: PCP Nurse Practitioner Family; Referring Provider Physical Medicine & Rehabilitation; Visit Provider Physical Medicine & Rehabilitation
DX: M53.3 Sacrococcygeal disorders, not elsewhere classified (principal)
CPT/HCPCS: 72220

== ENCOUNTER 2023-04-04 00:32 | Emergency (ER) | payer MEDICARE, OTHER, SELFPAY ==
[2023-04-04 00:38] VITALS: BP 161/87; PULSE 74; RESP 16; TEMP 36.4; O2SAT 99; BMI 29.9
--- NOTE | 2023-04-04 00:46 | DI.RAD.S_ITS ---
PROCEDURE: XR ANKLE RT MIN 3V INDICATIONS: tripped with pain to right ankle TECHNIQUE: 3 views of the ankle were acquired. COMPARISON: [facility], CR, XR ANKLE LT MIN 3V, 11/20/2019, 18:08. FINDINGS: Bones: There is a mildly displaced fracture of the lateral malleolus inferiorly. Ankle mortise is normally aligned. No suspicious bony lesions. Soft tissues: There is a small tibiotalar joint effusion. Periarticular soft tissue swelling is demonstrated laterally. Achilles tendon appears normal. IMPRESSION: 1. Mildly displaced fracture of the lateral malleolus. Dictated by: Sven Swift M.D. on 04/04/2023 at 1:32 Approved by: Sven Swift M.D. on 04/04/2023 at 1:33
--- NOTE | 2023-04-04 00:48 | DI.RAD.S_ITS ---
PROCEDURE: XR HAND LT MIN 3V INDICATIONS: fall with pain in left hand and thumb TECHNIQUE: Three views of the left hand acquired. COMPARISON: None. FINDINGS: Bones: No fractures or dislocations. There is severe degeneration at the 1st carpometacarpal joint. Mild degeneration of the interphalangeal joints.Carpal bones are normally aligned. No suspicious bony lesions. Soft tissues: No suspicious soft tissue calcifications. IMPRESSION: 1. No acute fracture or dislocation. Dictated by: Sven Swift M.D. on 04/04/2023 at 1:33 Approved by: Sven Swift M.D. on 04/04/2023 at 1:35
--- NOTE | 2023-04-04 03:34 | DI.RAD.S_ITS ---
PROCEDURE: XR KNEE RT 3V INDICATIONS: pain fibula TECHNIQUE: 3 views of the knee were acquired. COMPARISON: [facility], CR, XR KNEE RT 3V, 10/16/2018, 11:52. FINDINGS: Bones: No fractures or dislocations. No suspicious bony lesions. Moderate tricompartmental knee joint degeneration. Soft tissues: Small joint effusion. No suspicious soft tissue calcifications. Quadriceps tendon appears thickened. IMPRESSION: 1. No acute osseous abnormality. If clinical symptoms persist or clinical suspicion for pathology is high, a repeat examination in 7-10 days, or advanced imaging such as CT or MRI is suggested for further evaluation. 2. Moderate osteoarthritic changes. 3. Question thickening of quadriceps tendon suggesting quadriceps tendinitis or tendon tear. 4. Small knee joint effusion. Dictated by: Roman Sánchez M.D. on 04/04/2023 at 8:06 Approved by: Roman Sánchez M.D. on 04/04/2023 at 8:09
--- NOTE | 2023-04-04 04:01 | ED_ITS ---
HPI - Fall General Chief Complaint: Fall Stated Complaint: RT ANKLE PAIN FROM FALL Time Seen by Provider: 04/04/23 03:29 Source: patient Mode of arrival: Wheelchair History of Present Illness HPI Narrative: Patient is a 72-year-old female without contributing past medical history presenting today after ground level fall. She reports she was down in [place] [employer] going to a football game when she tripped and fell. She twisted her right ankle and landed on her left wrist. She proceeded to go to the game she has been able to weight bear and ambulate but as time has gone on it has gotten significantly worse. She received some ibuprofen down there which has helped. She denies any head injury or anticoagulation. Related Data Home Medications Medication Instructions Recorded Confirmed omega-3 fatty acids 1,000 mg 1,000 mg PO DAILY 04/24/18 02/03/23 capsule (Fish Oil Concentrate) cholecalciferol (vitamin D3) 25 1,000 unit PO DAILY 06/11/18 02/03/23 mcg (1,000 unit) capsule triamterene 37.5 1 tab PO DAILY 12/01/18 02/03/23 mg-hydrochlorothiazide 25 mg tablet potassium chloride 10 mEq 10 meq PO DAILY 09/30/19 02/03/23 tablet,extended release (Klor-Con) acetaminophen 500 mg tablet 500 mg PO QID PRN 12/08/20 02/03/23 (Tylenol Extra Strength) ibuprofen 200 mg tablet 200 mg PO Q6H PRN 01/09/22 02/03/23 lactobacillus combination no.9 4 4,000 mmu cells PO DAILY 01/09/22 02/03/23 billion cell capsule (Adult 50 Plus Probiotic) metoprolol succinate 25 mg 25 mg PO DAILY 07/24/22 02/03/23 tablet,extended release 24 hr vitamin B complex (B 1 tab PO DAILY 07/24/22 02/03/23 Complex-Vitamin B12 tablet) omeprazole 20 mg capsule,delayed 20 mg PO DAILY 10/30/22 02/03/23 release rosuvastatin 40 mg tablet 40 mg PO DAILY 02/03/23 02/03/23 Previous Rx's Medication Instructions Recorded albuterol sulfate 90 mcg/actuation 2 puff inhalation Q4-6H PRN 05/08/22 aerosol inhaler shortness of breath or wheezing #8.5 grams Allergies Allergy/AdvReac Type Severity Reaction Status Date / Time chocolate flavor Allergy Intermediate INCREASED Verified 02/03/23 15:37 [CHOCOLATE FLAVOR] HR, HEADACHE Penicillins [PENICILLINS] Allergy Intermediate HIVES Verified 02/03/23 15:37 oxycodone [OXYCODONE] AdvReac Intermediate N/V, Verified 02/03/23 15:37 HEADACHE Review of Systems Review of Systems ROS Unobtainable: All systems reviewed & are unremarkable except as noted in HPI and below Patient History Medical History Asthma Bicipital tendinitis of left shoulder DJD of left shoulder Facet arthropathy, lumbar Hypertension Right knee DJD Sacral back pain Traumatic coccydynia Surgical History History of back surgery History of cholecystectomy Family History Father Lung cancer Emphysema (subcutaneous) (surgical) resulting from a procedure Mother Congestive heart failure Social History marital status: Smoking Status: Never smoker alcohol intake: current substance use type: does not use Smoking Status: Never smoker alcohol intake frequency: a few times a month Alcohol type: wine Substance Use Type: does not use Exam Initial Vital Signs Initial Vital Signs: Vital Signs Temperature 97.6 F 04/04/23 00:38 Pulse Rate 74 04/04/23 00:38 Respiratory Rate 16 04/04/23 00:38 Blood Pressure 161/87 H 04/04/23 00:38 Pulse Oximetry 99 04/04/23 00:38 Oxygen Delivery Method Room Air 04/04/23 00:38 GENERAL: Alert pleasant well-appearing 72-year-old female HEENT: Head atraumatic,EOMI, pupils reactive, face symmetric, moist mucous membranes CARDIOVASCULAR: Regular rate and rhythm without murmurs, rubs or gallops. RESPIRATORY: Breath sounds equal bilaterally, no wheezes rales or rhonchi. EXTREMITIES: Normal range of motion, no clubbing or edema. Neurovascularly intact Right lower extremity swelling lateral malleoli tender to touch distal pedal pulse intact Achilles intact calf is soft. Tender on the fibular head but knee is stable minimal swelling. Left upper extremity some superficial abrasions but no significant wrist deformity or swelling NEUROLOGICAL: Alert and oriented x4. SKIN: Warm, dry, no laceration, no petechiae, no rashes or lesions. Course Orders Ordered: ED Orders 04/04/23 00:46 XR ankle RT min 3V Stat 04/04/23 00:48 XR hand LT min 3V Stat 04/04/23 03:34 XR knee RT 3V Stat Discontinued Medications Ibuprofen (Ibuprofen 400 Mg Tablet) 800 mg PO NOW ONE Stop: 04/04/23 03:57 Last Admin: 04/04/23 04:02 Dose: 800 mg Documented By: JEANNETTE Vital Signs Vital signs: Vital Signs - 8 hr 04/04/23 00:38 04/04/23 04:04 Temperature 97.6 F Pulse Rate 74 77 Respiratory Rate 16 16 Blood Pressure 161/87 H 138/76 Pulse Oximetry 99 99 Oxygen Delivery Method Room Air Room Air MDM - Fall Imaging Data Extremity x-ray #1: Radiologist's Impression: PROCEDURE:? XR ANKLE RT MIN 3V ? INDICATIONS:? tripped? with pain to right ankle ? TECHNIQUE:? 3 views of the ankle were acquired.? ? COMPARISON:? [facility], CR, XR ANKLE LT MIN 3V, 11/20/2019, 18:08. ? FINDINGS:? ? Bones:? There is a mildly displaced fracture of the lateral malleolus inferiorly.? Ankle mortise is normally aligned.? No suspicious bony lesions.? ? Soft tissues:? There is a small tibiotalar joint effusion.? Periarticular soft tissue swelling is demonstrated laterally.? Achilles tendon appears normal.? ? ? IMPRESSION:? ? 1. Mildly displaced fracture of the lateral malleolus. ? ? ? Dictated by: Sven Swift M.D. on 04/04/2023 at 1:32 ?? Extremity x-ray #2: Radiologist's Impression: PROCEDURE:? XR HAND LT MIN 3V ? INDICATIONS:? fall with pain in left hand and thumb ? TECHNIQUE:? Three views of the left hand acquired.? ? COMPARISON:? None. ? FINDINGS:? ? Bones:? No fractures or dislocations.? There is severe degeneration at the 1st carpometacarpal joint.? Mild degeneration of the interphalangeal joints.Carpal bones are normally aligned.? No suspicious bony lesions.? ? Soft tissues:? No suspicious soft tissue calcifications.? ? ? IMPRESSION:? ? 1. No acute fracture or dislocation. ? ? Dictated by: Sven Swift M.D. on 04/04/2023 at 1:33 ? ? Extremity x-ray #3: My Impression: No fracture MDM Narrative Medical decision making narrative: Patient is 72-year-old female presents after ground level fall prior to has a football game. She is found to have a distal fibular fracture minimally displaced. She is put in orthopedic boot crutches. She reports that Advil helped quite a bit and is requesting for more. Knee x-rays reviewed by myself and is negative Discharge Plan Departure Patient Disposition: Home Clinical Impression: Fracture of distal end of right fibula Instructions: Ankle Fracture Activity Restrictions/Additional Instructions: *You have been diagnosed with right ankle fracture *What to do: At this time wear boot use crutches as needed. Elevate and ice often. Recommend following up with Orthopedics. *Continue to take medications as directed Tylenol 1000 mg every 6 hours if needed for [id number] pain *Follow up with your primary care provider in 2-3 days or call [phone] Call orthopedics tomorrow to schedule follow-up appointment *Return to ER if you should have increasing pain swelling or any new, worsening or concerning symptoms Prescriptions: No Action albuterol sulfate 90 mcg/actuation HFA aerosol inhaler 2 puff INHALATION Q4-6H PRN (Reason: shortness of breath or wheezing) Qty: 8.5 0RF triamterene-hydrochlorothiazid 37.5-25 mg tablet 1 tab PO DAILY potassium chloride [Klor-Con 10] 10 mEq tablet extended release 10 meq PO DAILY omega-3 fatty acids [Fish Oil Concentrate] 1,000 mg capsule 1,000 mg PO DAILY cholecalciferol (vitamin D3) 1,000 unit capsule 1,000 unit PO DAILY acetaminophen [Tylenol Extra Strength] 500 mg tablet 500 mg PO QID PRN ibuprofen 200 mg tablet 200 mg PO Q6H PRN Hold Instructions: injection Adult 50 Plus Probiotic 4 billion cell capsule 4,000 mmu cells PO DAILY Rx Instructions: administer with a meal omeprazole 20 mg capsule,delayed release(DR/EC) 20 mg PO DAILY vitamin B complex [B Complex-Vitamin B12] Tablet 1 tab PO DAILY metoprolol succinate 25 mg tablet extended release 24 hr 25 mg PO DAILY rosuvastatin 40 mg tablet 40 mg PO DAILY Referrals: [facility] [Provider Group] Rhina Barrientos ARNP [Primary Care Provider] - Stand Alone Forms: Patient Portal/API
[2023-04-04] MEDS: IBUPROFEN 400 MG TABLET 800 MG PO (04:02)
[2023-04-04 04:04] VITALS: BP 138/76; PULSE 77; RESP 16; O2SAT 99
== END 2023-04-04 04:33 | disposition home or self-care (01) ==
PROVIDERS: Emergency Provider Emergency Medicine; PCP Nurse Practitioner Family
DX: S82.401A Unspecified fracture of shaft of right fibula, initial encounter for closed fracture (principal); M25.532 Pain in left wrist; W01.0XXA Fall on same level from slipping, tripping and stumbling without subsequent striking against object, initial encounter
CPT/HCPCS: 73130; 73562; 73610; 99283